=== PATIENT | male | born 1950 | race Caucasian/White ===

== ENCOUNTER 2017-03-25 16:37 | Inpatient (IN) | payer OTHER ==
[2017-03-25 17:03] VITALS: BMI 25.9
[2017-03-25] MEDS ORDERED: SODIUM CHLORIDE 1,000 ML IV STA (17:37)
[2017-03-25 18:08] LABS: BASOPHIL 0.2 % (0-2.0); EOSINOPHIL 0.4 % (0-4.5); MCH 31.8 pg (25.7-33.7); MCHC 33.8 g/dl (32.0-35.9); MEAN PLT VOLUME 9.3 fl (7.5-11.1); NEUTROPHILS 85.3 % (42.8-82.8); PLATELET COUNT 172 K/MM3 (134-434); RDW 15.3 % (11.9-15.9); WHITE BLOOD COUNT 17.9 K/mm3 (4.0-10.0)
[2017-03-25 18:36] LABS: ANION GAP 13 (8-16); CALCIUM 9.1 mg/dL (8.5-10.1); CO2 27 mmol/L (21-32); CREATININE 1.1 mg/dL (0.7-1.3); GLUCOSE,RANDOM 127 mg/dL (74-106); SGOT/AST 14 U/L (15-37); SGPT/ALT 16 U/L (12-78)
[2017-03-25 18:37] LABS: ALK PHOS 54 U/L (45-117); BILIRUBIN,TOTAL 1.7 mg/dL (0.2-1.0)
[2017-03-25 18:46] LABS: URINE APPEARANCE CLEAR; URINE BILIRUBIN NEGATIVE (NEGATIVE); URINE COLOR RED; URINE GLUCOSE (UA) NEGATIVE (NEGATIVE); URINE KETONE NEGATIVE (NEGATIVE); URINE LEUK ESTERASE NEGATIVE (NEGATIVE); URINE NITRITE POSITIVE (NEGATIVE); URINE UROBILINOGEN 4.0 E.U/dl E.U./dl (0.2-1.0)
[2017-03-25 18:50] LABS: URINE BLOOD 3+ (NEGATIVE); URINE PROTEIN 2+ (NEGATIVE)
[2017-03-25 18:56] LABS: URINE MUCUS RARE; URINE RBC 830 /hpf (0-3); URINE WBC 295 /hpf (3-5)
[2017-03-25] MEDS ORDERED: CEFTRIAXONE 1 GM in DEXTROSE 5%-WATER - 50 ML IVPB ONE (19:06)
[2017-03-25] MEDS ORDERED: CEFTRIAXONE 50 ML ONE (19:11)
--- NOTE | 2017-03-25 19:27 | PDOC ---
History of Present Illness <Sharath Deluna - Last Filed: 03/25/17 19:47> - General History Source: Patient, Family () Exam Limitations: No Limitations - History of Present Illness Initial Comments: 03/25/17 19:29 The patient is a 66 year old male, with a significant past medical history of HTN and anxiety, who presents to the emergency department with urinary symptoms. He notes that recently he has been having urgency, with the inability to urinate, as well as dysuria and hematuria. He also notes that at times he has urinary incontinence, where a small amount of urine comes out. Aside from the urinary symptoms, his notes that the patient has had generalized weakness over the past year, with his movements progressively getting slower. They note that they have not mentioned this progression to their PMD. The patient denies chest pain, shortness of breath, headache and dizziness. Denies fever, chills, nausea, vomit, diarrhea and constipation. Allergies: None Past surgical history: None reported Social history: Ocassional alcohol use. No tobacco or drug use reported PMD - Dr. Cherry <Trung Hogan - Last Filed: 03/25/17 19:56> - General Chief Complaint: Urinary Problem Stated Complaint: URINARY PROBLEM Time Seen by Provider: 03/25/17 17:20 Past History - Past Medical History HTN: Yes - Family Disease History Family Disease History: Diabetes: Mother (hypertension), Heart Disease: Mother - Psycho/Social/Smoking Cessation Hx Anxiety: No Suicidal Ideation: No Smoking History: Never smoked Have you smoked in the past 12 months: No Number of Cigarettes Smoked Daily: 0 Information on smoking cessation initiated: No Hx Alcohol Use: No Drug/Substance Use Hx: No Substance Use Type: None Hx Substance Use Treatment: No <Sharath Deluna - Last Filed: 03/25/17 19:47> <Trung Hogan - Last Filed: 03/25/17 19:56> - Past Medical History Allergies/Adverse Reactions: Allergies Allergy/AdvReac Type Severity Reaction Status Date / Time No Known Allergies Allergy Verified 03/25/17 17:03 Home Medications: Ambulatory Orders Aspirin [ASA -] 81 mg PO DAILY 07/09/15 Review of Systems - Review of Systems Able to Perform ROS?: Yes Comments:: 05/19/17 19:29 CONSTITUTIONAL: (+) Generalized weakness. No fever, no chills, no fatigue EYES: No visual changes ENT: No ear pain, no sore throat CARDIOVASCULAR: No chest pain, no palpitations RESPIRATORY: No cough, no SOB GI: No abdominal pain, no nausea, no vomiting, no constipation, no diarrhea GENITOURINARY: (+) Dysuria, frequency, hematuria MUSKULOSKELETAL: No backpain, no joint pain, no myalgias SKIN: No rash NEURO: No headache <Trung Hogan - Last Filed: 03/25/17 19:56> *Physical Exam - Vital Signs Last Vital Signs Temp Pulse Resp BP Pulse Ox 98.5 F 98 H 20 113/73 96 03/25/17 16:59 03/25/17 16:59 03/25/17 16:59 03/25/17 16:59 03/25/17 16:59 - Physical Exam Comments: EXAMINATION CONSTITUTIONAL: Awake and alert, well-nourished; in no apparent distress HEAD: Normocephalic; atraumatic EYES: PERRL; EOM intact ENMT: External appears normal; + flattening of the right nasolabial fold NECK: Supple; non-tender; no cervical lymphadenopathy CARD: Normal S1, S2; no murmurs, rubs, or gallops RESP: Normal chest excursion with respiration; breath sounds clear and equal bilaterally; no wheezes, rhonchi, or rales ABD: Soft, non-distended; + mild suprapubic tender; no palpable organomegaly, no palpable hernias, no CVA tenderness bilaterally KS: No external lesions, good rectal tone is noted. EXT: + cogwheel rigidity in all four extremities; non-tender to palpation; distal pulses intact; + DTRs +2 at the knee joints and ankle joints bilaterally; SKIN: Warm, dry, no rash NEURO: Cranial nerves II through XII are grossly intact; motor: 5 of 54; + right upper extremity pronation drift; gait-festinating; <Sharath Deluna - Last Filed: 03/25/17 19:47> - Vital Signs Last Vital Signs Temp Pulse Resp BP Pulse Ox 98.5 F 98 H 20 113/73 96 03/25/17 16:59 03/25/17 16:59 03/25/17 16:59 03/25/17 16:59 03/25/17 16:59 <Trung Hogan - Last Filed: 03/25/17 19:56> ED Treatment Course - LABORATORY CBC & Chemistry Diagram: 03/25/17 17:52 03/25/17 17:52 - ADDITIONAL ORDERS Additional order review: Laboratory Results 03/25/17 03/25/17 18:31 17:52 Sodium 139 Potassium 3.9 Chloride 99 Carbon Dioxide 27 Anion Gap 13 BUN 17 D Creatinine 1.1 D Creat Clearance w eGFR > 60 Random Glucose 127 H Calcium 9.1 Total Bilirubin 1.7 H D AST 14 L ALT 16 D Alkaline Phosphatase 54 Total Protein 7.0 Albumin 4.0 Urine Color Red Urine Appearance Clear Urine pH 5.0 Urine Protein 2+ H Urine Glucose (UA) Negative Urine Ketones Negative Urine Blood 3+ H Urine Nitrite Positive Urine Bilirubin Negative Urine Urobilinogen 4.0 e.u/dl Ur Leukocyte Esterase Negative Urine RBC 830 Urine WBC 295 Ur Epithelial Cells Rare Urine Mucus Rare 03/25/17 17:52 RBC 4.41 MCV 94.0 MCHC 33.8 RDW 15.3 D MPV 9.3 Neutrophils % 85.3 H D Lymphocytes % 6.7 L D Monocytes % 7.4 Eosinophils % 0.4 D Basophils % 0.2 - RADIOLOGY Radiology Studies Ordered: Category Date Time Status HEAD CT WITHOUT CONTRAST [CT] Stat CT Scan 03/25/17 17:38 Completed - Medications Given in the ED: ED Medications Discontinued Medications Generic Name Dose Route Start Last Admin Trade Name Freq PRN Reason Stop Dose Admin Sodium Chloride 1,000 mls @ 1,000 mls/hr 03/25/17 17:37 03/25/17 17:54 Normal Saline - IV 03/25/17 18:36 1,000 mls/hr ASDIR STA Administration <Sharath Deluna - Last Filed: 03/25/17 19:47> - LABORATORY CBC & Chemistry Diagram: 03/25/17 17:52 03/25/17 17:52 - ADDITIONAL ORDERS Additional order review: Laboratory Results 03/25/17 03/25/17 18:31 17:52 Sodium 139 Potassium 3.9 Chloride 99 Carbon Dioxide 27 Anion Gap 13 BUN 17 D Creatinine 1.1 D Creat Clearance w eGFR > 60 Random Glucose 127 H Calcium 9.1 Total Bilirubin 1.7 H D AST 14 L ALT 16 D Alkaline Phosphatase 54 Total Protein 7.0 Albumin 4.0 Urine Color Red Urine Appearance Clear Urine pH 5.0 Urine Protein 2+ H Urine Glucose (UA) Negative Urine Ketones Negative Urine Blood 3+ H Urine Nitrite Positive Urine Bilirubin Negative Urine Urobilinogen 4.0 e.u/dl Ur Leukocyte Esterase Negative Urine RBC 830 Urine WBC 295 Ur Epithelial Cells Rare Urine Mucus Rare 03/25/17 17:52 RBC 4.41 MCV 94.0 MCHC 33.8 RDW 15.3 D MPV 9.3 Neutrophils % 85.3 H D Lymphocytes % 6.7 L D Monocytes % 7.4 Eosinophils % 0.4 D Basophils % 0.2 - RADIOLOGY Radiograph Interpretation: 03/25/17 19:[address] Reviewed by: Dr. Edmond Melendrez Impression: No evidence of acute intracranial pathology. - Medications Given in the ED: ED Medications Discontinued Medications Generic Name Dose Route Start Last Admin Trade Name Freq PRN Reason Stop Dose Admin Sodium Chloride 1,000 mls @ 1,000 mls/hr 03/25/17 17:37 03/25/17 17:54 Normal Saline - IV 03/25/17 18:36 1,000 mls/hr ASDIR STA Administration <Trung Hogan - Last Filed: 03/25/17 19:56> Medical Decision Making - Medical Decision Making 03/25/17 19:50 Patient is 66-year-old male with history of hypertension and anxiety who presents with signs and symptoms of acute prostatitis as well as bradykinesia that has worsened over the past year, with right-sided pronation drift and mild flattening of the right nasolabial fold. Patient also has cogwheel rigidity in all 4 extremities. Will obtain CBC/CMP/blood culture/UA/urine culture and will treat with IV ceftriaxone for suspected prostatitis. Patient's CBC indicates significant leukocytosis with predominance of neutrophils and patient will require inpatient treatment with IV antibiotics in the interim before conversion to oral antibiotic therapy. Patient's neurological symptoms are chronic and in situ us. I suspect parkinsonism. CT of head shows no evidence of acute intracranial pathology that patient may require additional testing with MRI. I do not suspect cord compression at this time (sees patient has no back pain, good rectal tone, and was able to control voiding in the ER). We'll consult neurology and urology. Will admit. Case discussed with Dr. Bernard. He agrees with plan of care. <Sharath Deluna - Last Filed: 03/25/17 19:47> - Medical Decision Making 03/25/17 19:54 Dr. Cherry was called regarding the patient at 7:03pm Dr. Cherry was consulted regarding the patient at 7:18pm [phone] Dr. Mario was called regarding the patient at 7:27pm Dr. Mario was consulted regarding the patient at 7:40pm [phone] <Trung Hogan - Last Filed: 03/25/17 19:56> *DC/Admit/Observation/Transfer - Discharge Dispostion Admit: Yes - Attestations Physician Attestion: 03/25/17 19:27 The documentation was prepared by the scribe under my direct supervision. I have reviewed the documentation which correctly represents the findings, medical decision-making and critical action taken by me. <Sharath Deluna - Last Filed: 03/25/17 19:47> - Attestations Scribe Attestion: 03/25/17 19:29 Documentation prepared by Trung Hogan, acting as medical surgical tech for Sharath Deluna MD <Trung Hogan - Last Filed: 03/25/17 19:56> Diagnosis at time of Disposition: Acute prostatitis with hematuria, Weakness - Referrals Referrals: Sanjay Cherry MD [Primary Care Provider] -
[2017-03-25] MEDS ORDERED: ACETAMINOPHEN 325 MG TABLET (FP) ONE (21:33)
[2017-03-25] MEDS: ACETAMINOPHEN 325 MG TABLET (FP) PO PRN (21:37)
[2017-03-26] MEDS: SODIUM CHLORIDE 1,000 ML IV SCH ×2 (01:18→23:22)
[2017-03-26 07:55] LABS: MCH 32.6 pg (25.7-33.7); MCHC 34.5 g/dl (32.0-35.9); MEAN CELL VOLUME 94.6 fl (80-96); MEAN PLT VOLUME 9.2 fl (7.5-11.1); PLATELET COUNT 140 K/MM3 (134-434); RDW 15.5 % (11.9-15.9)
[2017-03-26 08:07] LABS: ALBUMIN 3.4 g/dl (3.4-5.0); ANION GAP 12 (8-16); CALCIUM 8.4 mg/dL (8.5-10.1); CO2 27 mmol/L (21-32); GLUCOSE,RANDOM 99 mg/dL (74-106); SGOT/AST 12 U/L (15-37); SGPT/ALT 15 U/L (12-78)
[2017-03-26 08:21] LABS: ALK PHOS 53 U/L (45-117); BILIRUBIN,TOTAL 1.2 mg/dL (0.2-1.0); CREATININE 1.1 mg/dL (0.7-1.3); TOT PROT 6.1 g/dl (6.4-8.2)
[2017-03-26] MEDS: TAMSULOSIN HCL 0.4 MG CAP.ER.24H (FP) PO SCH (08:42)
[2017-03-26] MEDS ORDERED: CEFTRIAXONE 2 GM in DEXTROSE 5%-WATER - 100 ML IVPB SCH (10:00)
[2017-03-26] MEDS ORDERED: CEFTRIAXONE 100 ML IVPB SCH (10:06)
[2017-03-26] MEDS: CEFTRIAXONE 100 ML IVPB SCH (10:29)
--- NOTE | 2017-03-26 10:38 | HP ---
Admitting History and Physical - Primary Care Physician PCP: Sanjay Cherry - Admission Chief Complaint: ACUTE PROSTATITIS/WITH ACUTE BRADYKINESIA History of Present Illness: PATIENT IS A 66 Y/O MALE WITH HYPOTENSION/FEVER AT HOME, DYSUREA AND ABD PAIN. PATIENT'S ALSO MENTIONS HER HAS BEEN MOVING SLOWLY PAST SEVERAL MONTHS AND NOW WORSENED. RIGID AND SLOW MOVEMENTS. PATIENT ALSO SUFFERS FROM HYPOGONADISM LOW TESTOSTERONE WITH ERECTILE DYSFUNCTION AND HE IS ON TETOSTERONE THERAPY MONTHLY. History Source: Patient - Past Medical History Cardiovascular: Yes: HTN Psych: Yes: Anxiety Endocrine: Yes: Other (HYPOGONADISM) - Smoking History Smoking history: Never smoked Have you smoked in the past 12 months: No Aproximately how many cigarettes per day: 0 - Alcohol/Substance Use Hx Alcohol Use: No Home Medications - Allergies Allergies/Adverse Reactions: Allergies Allergy/AdvReac Type Severity Reaction Status Date / Time No Known Allergies Allergy Verified 03/25/17 17:03 - Home Medications Home Medications: Ambulatory Orders Aspirin [ASA -] 81 mg PO DAILY 07/09/15 Clonazepam [Klonopin] 1 mg PO BID PRN 03/25/17 Losartan Potassium 50 mg PO DAILY 03/25/17 Zolpidem Tartrate [Ambien] 10 mg PO HS 03/25/17 Review of Systems - Review of Systems Constitutional: reports: Lethargy, Loss of Appetite, Weakness Eyes: reports: No Symptoms HENT: reports: No Symptoms Neck: reports: No Symptoms Cardiovascular: reports: No Symptoms Respiratory: reports: No Symptoms Gastrointestinal: reports: No Symptoms Genitourinary: reports: Dysuria, Other Musculoskeletal: reports: Muscle Weakness Integumentary: reports: No Symptoms Neurological: reports: Unsteady Gait, Weakness Endocrine: reports: No Symptoms Hematology/Lymphatic: reports: No Symptoms Physical Examination Vital Signs: Vital Signs Temperature 98.4 F 03/26/17 09:01 Pulse Rate 74 03/26/17 09:01 Respiratory Rate 20 03/26/17 09:01 Blood Pressure 93/55 03/26/17 09:01 O2 Sat by Pulse Oximetry (%) 96 03/25/17 21:37 Constitutional: Yes: Mild Distress Eyes: Yes: WNL HENT: Yes: WNL Neck: Yes: WNL Cardiovascular: Yes: WNL Respiratory: Yes: WNL Gastrointestinal: Yes: WNL Renal/: Yes: WNL Musculoskeletal: Yes: Muscle Weakness Extremities: Yes: Other Edema: No Peripheral Pulses WNL: Yes Integumentary: Yes: WNL Wound/Incision: Yes: Clean/Dry Neurological: Yes: Ataxia, Unsteady Gait ...Motor Strength: LLE, RLE Psychiatric: Yes: Other Labs: CBC, BMP 03/26/17 07:25 03/26/17 07:25 Imaging - Results Cat Scan: Report Reviewed Problem List - Problems (1) Acute prostatitis with hematuria Code(s): N41.0 - ACUTE PROSTATITIS (2) Weakness Code(s): R53.1 - WEAKNESS (3) Anxious appearance Code(s): R45.89 - OTHER SYMPTOMS AND SIGNS INVOLVING EMOTIONAL STATE (4) Bradykinesia Code(s): R25.8 - OTHER ABNORMAL INVOLUNTARY MOVEMENTS Assessment/Plan IV ABX EVAL ORDERED LABS PENDING ESR/CRP/LYME/RPR/TESTOSTERONE/PSA LEVELS F/U CULTURES NEURO WORKUP MRI BRAIN PITIUTARY VIEW FOR LOW TESTOSTERONE/BRADYKINESIA
[2017-03-26] MEDS ORDERED: clonazePAM 0.5 MG TABLET PO PRN (10:51)
--- NOTE | 2017-03-26 11:28 | PN ---
Progress Note (short form) - Note Progress Note: ID consult dictated imp/reccd fever/UTI no history of antibiotics no prior UTI agree with eval feels better on ceftriaxone would continue f/u cultures Problem List - Problems (1) UTI (urinary tract infection) Code(s): N39.0 - URINARY TRACT INFECTION, SITE NOT SPECIFIED (2) Acute prostatitis with hematuria Code(s): N41.0 - ACUTE PROSTATITIS
[2017-03-26] MEDS ORDERED: MAGNESIUM HYDROX 2400MG/30ML ORAL SUSPENSION 30 ML CUP PO ONE (11:30)
--- NOTE | 2017-03-26 12:03 | EKG ---
Test Reason : Blood Pressure : / mmHG Vent. Rate : 077 BPM Atrial Rate : 077 BPM P-R Int : 162 ms QRS Dur : 104 ms QT Int : 364 ms P-R-T Axes : 038 014 014 degrees QTc Int : 411 ms NORMAL SINUS RHYTHM NORMAL ECG WHEN COMPARED WITH ECG OF 16-JUL-2015 07:33, NO SIGNIFICANT CHANGE WAS FOUND Confirmed by MD ZBIGNIEW, SUMMER ([id number]) on 03/26/2017 12:03:17 PM Referred By: Francoise CORTES Confirmed By:SUMMER COY MD
[2017-03-26] MEDS: POLYETHYLENE GLYCOL 3350 119 GM BTL PO SCH (12:04)
--- NOTE | 2017-03-26 12:58 | CON.GU ---
Consult Consult Specialty:: urology Referred by:: Dilip Reason for Consultation:: uti/acute prostatitis - History of Present Illness Chief Complaint: dysuria with gross hematuria History of Present Illness: Patient is a 66 year old male with history of mild obstructive symptoms. He developed dysruria, gross hematuria, frequency, and significantly increased nocturia. He denies fever, chills, nausea, vomiting, or flank pain. - History Source History Provided By: Patient Limitations to Obtaining History: No Limitations - Past Medical History Cardio/Vascular: Yes: HTN Psych: Yes: Anxiety Endocrine: Yes: Other (HYPOGONADISM) - Alcohol/Substance Use Hx Alcohol Use: No - Smoking History Smoking history: Never smoked Have you smoked in the past 12 months: No Aproximately how many cigarettes per day: 0 Home Medications - Allergies Allergies/Adverse Reactions: Allergies Allergy/AdvReac Type Severity Reaction Status Date / Time No Known Allergies Allergy Verified 03/25/17 17:03 - Home Medications Home Medications: Ambulatory Orders Aspirin [ASA -] 81 mg PO DAILY 07/09/15 Clonazepam [Klonopin] 1 mg PO BID PRN 03/25/17 Losartan Potassium 50 mg PO DAILY 03/25/17 Zolpidem Tartrate [Ambien] 10 mg PO HS 03/25/17 Physical Exam- Vital Signs: Vital Signs Temperature 98.4 F 03/26/17 09:01 Pulse Rate 82 03/26/17 10:38 Respiratory Rate 20 03/26/17 10:38 Blood Pressure 107/64 03/26/17 10:38 O2 Sat by Pulse Oximetry (%) 94 L 03/26/17 09:00 Constitutional: Yes: Well Nourished, No Distress, Anxious Eyes: Yes: WNL, Conjunctiva Clear, EOM Intact HENT: Yes: WNL, Atraumatic, Normocephalic Neck: Yes: WNL, Supple, Trachea Midline Cardiovascular: Yes: WNL, Regular Rate and Rhythm Respiratory: Yes: WNL, Regular Gastrointestinal: Yes: WNL, Normal Bowel Sounds, Soft Renal/: Yes: WNL Kidneys: Yes: WNL Pelvis: Yes: WNL, Bladder Non Palpable Testicles: Yes: Descended Scrotum: Yes: WNL Penis: Yes: WNL Prostate Exam: Yes: Swollen, Tenderness Labs: CBC, BMP 03/26/17 07:25 03/26/17 07:25 Assessment/Plan imp uti/acute prostatitis bph plan continue flomax and Rocephin will follow-up as outpatient Antibiotics as per urine culture
--- NOTE | 2017-03-26 14:28 | CONSULT ---
Consult - text type - Consultation Consultation Note: Neurology History of Present Illness The patient is a 66 year old male, with a significant past medical history of HTN and anxiety, who presents to the emergency department with urinary symptoms. He notes that recently he has been having urgency, with the inability to urinate, as well as dysuria and hematuria. He also notes that at times he has urinary incontinence, where a small amount of urine comes out. Aside from the urinary symptoms, his notes that the patient has had generalized weakness over the past year, with his movements progressively getting slower. In speaking with patient he believes his motions are intact. He did complete CT of head shows no evidence of acute intracranial pathology. Past History - Past Medical History HTN: Yes - Family Disease History Family Disease History: Diabetes: Mother (hypertension), Heart Disease: Mother - Psycho/Social/Smoking Cessation Hx Anxiety: No Suicidal Ideation: No Smoking History: Never smoked Have you smoked in the past 12 months: No Number of Cigarettes Smoked Daily: 0 Information on smoking cessation initiated: No Hx Alcohol Use: No Drug/Substance Use Hx: No Substance Use Type: None Hx Substance Use Treatment: No - Past Medical History Allergies/Adverse Reactions: Allergies Allergy/AdvReac Type Severity Reaction Status Date / Time No Known Allergies Allergy Verified 03/25/17 17:03 Home Medications: Ambulatory Orders Aspirin [ASA -] 81 mg PO DAILY 07/09/15 Review of Systems CONSTITUTIONAL: (+) Generalized weakness. No fever, no chills, no fatigue EYES: No visual changes ENT: No ear pain, no sore throat CARDIOVASCULAR: No chest pain, no palpitations RESPIRATORY: No cough, no SOB GI: No abdominal pain, no nausea, no vomiting, no constipation, no diarrhea GENITOURINARY: (+) Dysuria, frequency, hematuria MUSKULOSKELETAL: No backpain, no joint pain, no myalgias SKIN: No rash NEURO: No headache *Physical Exam Last Vital Signs Temp Pulse Resp BP Pulse Ox 98.4 F 82 20 107/64 94 L 03/26/17 09:01 03/26/17 10:38 03/26/17 10:38 03/26/17 10:38 03/26/17 09:00 CONSTITUTIONAL: Awake and alert, well-nourished; in no apparent distress HEAD: Normocephalic; atraumatic EYES: PERRL; EOM intact ENMT: External appears normal; + flattening of the right nasolabial fold NECK: Supple; non-tender; no cervical lymphadenopathy CARD: Normal S1, S2; no murmurs, rubs, or gallops RESP: Normal chest excursion with respiration; breath sounds clear and equal bilaterally; no wheezes, rhonchi, or rales ABD: Soft, non-distended; + mild suprapubic tender; no palpable organomegaly, no palpable hernias, no CVA tenderness bilaterally CO: No external lesions, good rectal tone is noted. EXT: + cogwheel rigidity in all four extremities; non-tender to palpation; distal pulses intact; + DTRs +2 at the knee joints and ankle joints bilaterally; SKIN: Warm, dry, no rash NEURO: Cranial nerves II through XII are grossly intact; motor: 5 of 54; + right upper extremity pronation drift; gait-festinating; Laboratory Results 03/25/17 03/25/17 18:31 17:52 Sodium 139 Potassium 3.9 Chloride 99 Carbon Dioxide 27 Anion Gap 13 BUN 17 D Creatinine 1.1 D Creat Clearance w eGFR > 60 Random Glucose 127 H Calcium 9.1 Total Bilirubin 1.7 H D AST 14 L ALT 16 D Alkaline Phosphatase 54 Total Protein 7.0 Albumin 4.0 Urine Color Red Urine Appearance Clear Urine pH 5.0 Urine Protein 2+ H Urine Glucose (UA) Negative Urine Ketones Negative Urine Blood 3+ H Urine Nitrite Positive Urine Bilirubin Negative Urine Urobilinogen 4.0 e.u/dl Ur Leukocyte Esterase Negative Urine RBC 830 Urine WBC 295 Ur Epithelial Cells Rare Urine Mucus Rare 03/25/17 17:52 RBC 4.41 MCV 94.0 MCHC 33.8 RDW 15.3 D MPV 9.3 Neutrophils % 85.3 H D Lymphocytes % 6.7 L D Monocytes % 7.4 Eosinophils % 0.4 D Basophils % 0.2 Medical Decision Making 66 year old male, with a significant past medical history of HTN and anxiety, who presents to the emergency department with urinary symptoms. He notes that recently he has been having urgency, with the inability to urinate, as well as dysuria and hematuria. He also notes that at times he has urinary incontinence, where a small amount of urine comes out. Aside from the urinary symptoms, his notes that the patient has had generalized weakness over the past year, with his movements progressively getting slower. In speaking with patient he believes his motions are intact. He did complete CT of head shows no evidence of acute intracranial pathology. There possible parkinsonism occuring but at this point I would not initiate medication. I would recommend monitoring clinically. If symptoms progess, consider Sinemet but currently would recommend treating current conditions and re-evaluating.
--- NOTE | 2017-03-26 14:31 | CONS ---
INFECTIOUS DISEASE CONSULTATION DATE OF CONSULTATION: DATE OF DICTATION: 03/26/2017 REQUESTING PHYSICIAN: Sanjay Cherry MD HISTORY OF PRESENT ILLNESS: This is a 66-year-old man who presents to the emergency room with acute onset of urinary urgency, difficulty urinating, dysuria, and hematuria. This has been present for about a day. He has never had this happen before. He denies any recent antibiotic use. He has never had a prior urinary tract infection. He denies fevers or chills though after admission he had a fever of 103. He has no nausea or vomiting. He has no diarrhea or dysuria. ALLERGIES: He has no known drug allergies. PAST MEDICAL HISTORY: Notable for hypertension and anxiety. He apparently has a low testosterone as well and is on testosterone supplements and he is followed by Dr. Cherry. PAST SURGICAL HISTORY: Notable for a left wrist fracture secondary to a fall many years ago. MEDICATIONS: At home include aspirin, Klonopin, losartan, and Ambien. He also takes testosterone. FAMILY HISTORY: Noncontributory. SOCIAL HISTORY: He lives with his . There is no history of any cigarette or substance use. 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 There is no history of any recent travel. REVIEW OF SYSTEMS: As per the history of present illness. PHYSICAL EXAMINATION: Vital Signs: He had a T-max of 103 in the emergency room and current temperature of 98.4. Pulse of 74, blood pressure of 93/55, and respiratory rate of 20. HEENT: Normocephalic. Eyes are anicteric. Neck: Supple. Lungs: Clear to auscultation. Heart: Regular rate and rhythm. Abdomen: He has no CVA tenderness. He has mild suprapubic discomfort. Genitourinary: He has no scrotal swelling. Extremities: Without edema. Rectal: Examination was done in the emergency room which the patient reports is minimally uncomfortable. LABORATORY DATA: White count on admission was 17.9 and this morning is 14, and hemoglobin of 13.7. BUN of 16 and creatinine of 1.1. Liver function tests are normal. Urinalysis had 830 red cells with 295 white cells and cultures are pending. Chest x-ray was done in the emergency room, which is unremarkable and head CT as well is unremarkable. IMPRESSION: In summary, this is a 66-year-old man admitted with acute onset of urinary symptoms consistent with urinary tract infection and possible acute prostatitis with hematuria. I would agree with urology evaluation. He is feeling better on ceftriaxone, which I would continue at this time and follow up his cultures. There is no history of prior antibiotic use or urinary tract infection to suggest drug-resistant organisms. Further recommendations to follow based on clinical course. NEWTON LE M.D. [id number]
[2017-03-26] MEDS: ACETAMINOPHEN 325 MG TABLET (FP) PO PRN (21:16)
[2017-03-26] MEDS: ZOLPIDEM TARTRATE 5 MG TABLET PO PRN (23:22)
[2017-03-27] MEDS: TAMSULOSIN HCL 0.4 MG CAP.ER.24H (FP) PO SCH (08:18)
[2017-03-27] MEDS: POLYETHYLENE GLYCOL 3350 119 GM BTL PO SCH (09:22)
[2017-03-27] MEDS: CEFTRIAXONE 100 ML IVPB SCH (09:22)
--- NOTE | 2017-03-27 13:54 | PN ---
Progress Note (short form) - Note Progress Note: feels better no hematuria no dysuria Vital Signs Period Temp Pulse Resp BP Sys/Esc[place]illa Pulse Ox Last 24 Hr 98.2 F-100.6 F 64-81 18-20 99-113/54-66 95-98 cor-rrr lungs clear abd soft,nt ext no edema no cvat CBC, BMP 03/26/17 07:25 03/26/17 07:25 Microbiology 03/25/17 18:31 Urine - Urine Clean Catch Urine Culture - Preliminary Non Lactose Fermenting Gnb 03/25/17 19:35 Blood - Peripheral Venous Blood Culture - Preliminary NO GROWTH OBTAINED AFTER 24 HOURS, INCUBATION TO CONTINUE FOR 4 DAYS. 03/25/17 19:00 Blood - Peripheral Venous Blood Culture - Preliminary NO GROWTH OBTAINED AFTER 24 HOURS, INCUBATION TO CONTINUE FOR 4 DAYS. a/p uti/prostatitis continue ceftriaxone, f/u culture in am, hopefully switch to po antibiotics Problem List - Problems (1) UTI (urinary tract infection) Code(s): N39.0 - URINARY TRACT INFECTION, SITE NOT SPECIFIED (2) Acute prostatitis with hematuria Code(s): N41.0 - ACUTE PROSTATITIS
--- NOTE | 2017-03-27 18:28 | PN ---
Progress Note, Physician Chief Complaint: AWAKE ALERT FAMILY BEDSIDE NAD - Current Medication List Current Medications: Active Medications Acetaminophen (Tylenol -) 650 mg PO Q6H PRN PRN Reason: FEVER OR PAIN Last Admin: 03/26/17 21:16 Dose: 650 mg Clonazepam (Klonopin -) 0.5 mg PO BID PRN PRN Reason: ANXIETY Ceftriaxone Sodium (Rocephin 2gm Ivpb (Pre-Docked)) 100 mls @ 200 mls/hr IVPB DAILY [facility] Last Admin: 03/27/17 09:22 Dose: 200 mls/hr Polyethylene Glycol (Miralax (For Daily Use) -) 17 gm PO DAILY [facility] Last Admin: 03/27/17 09:22 Dose: 17 gm Tamsulosin HCl (Flomax -) 0.4 mg PO DAILY@0830 [facility] Last Admin: 03/27/17 08:18 Dose: 0.4 mg Zolpidem Tartrate (Ambien -) 10 mg PO HS PRN Last Admin: 03/26/17 23:22 Dose: 10 mg - Objective Vital Signs: Vital Signs Temperature 98.7 F 03/27/17 14:28 Pulse Rate 79 03/27/17 14:28 Respiratory Rate 18 03/27/17 14:28 Blood Pressure 107/70 03/27/17 14:28 O2 Sat by Pulse Oximetry (%) 98 03/27/17 09:00 Constitutional: Yes: Mild Distress Eyes: Yes: WNL HENT: Yes: WNL Neck: Yes: WNL Cardiovascular: Yes: WNL Respiratory: Yes: WNL Gastrointestinal: Yes: WNL Genitourinary: Yes: WNL Musculoskeletal: Yes: Joint Stiffness, Muscle Weakness Extremities: Yes: WNL Edema: No Integumentary: Yes: WNL Wound/Incision: Yes: Clean/Dry Neurological: Yes: Pre-Existing Deficit, Unsteady Gait ...Motor Strength: WNL Psychiatric: Yes: WNL Labs: CBC, BMP 03/26/17 07:25 03/26/17 07:25 Problem List - Problems (1) Acute prostatitis with hematuria Code(s): N41.0 - ACUTE PROSTATITIS (2) Weakness Code(s): R53.1 - WEAKNESS (3) Anxious appearance Code(s): R45.89 - OTHER SYMPTOMS AND SIGNS INVOLVING EMOTIONAL STATE (4) Bradykinesia Code(s): R25.8 - OTHER ABNORMAL INVOLUNTARY MOVEMENTS Assessment/Plan IV ABX EVAL ORDERED LABS PENDING ESR/CRP/LYME/RPR/TESTOSTERONE/PSA LEVELS F/U CULTURES NEURO WORKUP MRI BRAIN PITIUTARY VIEW FOR LOW TESTOSTERONE/BRADYKINESIA
[2017-03-27] MEDS: ZOLPIDEM TARTRATE 5 MG TABLET PO PRN (23:22)
[2017-03-28 00:06] LABS: PROSTATE SPECIFIC ANTIGEN 8.4 ng/mL (0.0-4.0)
[2017-03-28 07:57] LABS: MEAN CELL VOLUME 93.9 fl (80-96); MEAN PLT VOLUME 9.6 fl (7.5-11.1); PLATELET COUNT 152 K/MM3 (134-434); RDW 14.5 % (11.9-15.9); WHITE BLOOD COUNT 6.3 K/mm3 (4.0-10.0)
[2017-03-28 08:20] LABS: ALBUMIN 2.9 g/dl (3.4-5.0); ANION GAP 8 (8-16); CALCIUM 7.8 mg/dL (8.5-10.1); CO2 28 mmol/L (21-32); GLUCOSE,RANDOM 89 mg/dL (74-106)
[2017-03-28 08:23] LABS: ALK PHOS 49 U/L (45-117); BILIRUBIN,TOTAL 0.8 mg/dL (0.2-1.0); COCKROFT - GAULT 105.33; CREATININE 0.8 mg/dL (0.7-1.3); SGOT/AST 14 U/L (15-37); SGPT/ALT 18 U/L (12-78); TOT PROT 5.8 g/dl (6.4-8.2)
[2017-03-28] MEDS: POLYETHYLENE GLYCOL 3350 119 GM BTL PO SCH (10:03)
[2017-03-28] MEDS: TAMSULOSIN HCL 0.4 MG CAP.ER.24H (FP) PO SCH (10:03)
[2017-03-28] MEDS: CEFTRIAXONE 100 ML IVPB SCH (10:03)
--- NOTE | 2017-03-28 10:47 | PN ---
Progress Note (short form) - Note Progress Note: Neurology History of Present Illness The patient is a 66 year old male, with a significant past medical history of HTN and anxiety, who presents to the emergency department with urinary symptoms. He notes that recently he has been having urgency, with the inability to urinate, as well as dysuria and hematuria. He also notes that at times he has urinary incontinence, where a small amount of urine comes out. Aside from the urinary symptoms, his notes that the patient has had generalized weakness over the past year, with his movements progressively getting slower. In speaking with patient he believes his motions are intact. He did complete CT of head shows no evidence of acute intracranial pathology. MRI brain completed and no significant abnormality. Active Medications Acetaminophen (Tylenol -) 650 mg PO Q6H PRN PRN Reason: FEVER OR PAIN Last Admin: 03/26/17 21:16 Dose: 650 mg Clonazepam (Klonopin -) 0.5 mg PO BID PRN PRN Reason: ANXIETY Ceftriaxone Sodium (Rocephin 2gm Ivpb (Pre-Docked)) 100 mls @ 200 mls/hr IVPB DAILY [facility] Last Admin: 03/28/17 10:03 Dose: 200 mls/hr Polyethylene Glycol (Miralax (For Daily Use) -) 17 gm PO DAILY [facility] Last Admin: 03/28/17 10:03 Dose: 17 gm Tamsulosin HCl (Flomax -) 0.4 mg PO DAILY@0830 [facility] Last Admin: 03/28/17 10:03 Dose: 0.4 mg Zolpidem Tartrate (Ambien -) 10 mg PO HS PRN Last Admin: 03/27/17 23:22 Dose: 10 mg Review of Systems CONSTITUTIONAL: (+) Generalized weakness. No fever, no chills, no fatigue EYES: No visual changes ENT: No ear pain, no sore throat CARDIOVASCULAR: No chest pain, no palpitations RESPIRATORY: No cough, no SOB GI: No abdominal pain, no nausea, no vomiting, no constipation, no diarrhea GENITOURINARY: (+) Dysuria, frequency, hematuria MUSKULOSKELETAL: No backpain, no joint pain, no myalgias SKIN: No rash NEURO: No headache *Physical Exam Vital Signs Temperature 99.5 F 03/28/17 06:00 Pulse Rate 73 03/28/17 06:00 Respiratory Rate 18 03/28/17 06:00 Blood Pressure 133/83 03/28/17 06:00 O2 Sat by Pulse Oximetry (%) 98 03/27/17 21:00 CONSTITUTIONAL: Awake and alert, well-nourished; in no apparent distress HEAD: Normocephalic; atraumatic EYES: PERRL; EOM intact ENMT: External appears normal; + flattening of the right nasolabial fold NECK: Supple; non-tender; no cervical lymphadenopathy CARD: Normal S1, S2; no murmurs, rubs, or gallops RESP: Normal chest excursion with respiration; breath sounds clear and equal bilaterally; no wheezes, rhonchi, or rales ABD: Soft, non-distended; + mild suprapubic tender; no palpable organomegaly, no palpable hernias, no CVA tenderness bilaterally ME: No external lesions, good rectal tone is noted. EXT: + cogwheel rigidity in all four extremities; non-tender to palpation; distal pulses intact; + DTRs +2 at the knee joints and ankle joints bilaterally; SKIN: Warm, dry, no rash NEURO: Cranial nerves II through XII are grossly intact; motor: 5 of 54; + right upper extremity pronation drift; gait-festinating; CBCD WBC 6.3 K/mm3 (4.0-10.0) D 03/28/17 06:47 RBC 3.97 M/mm3 (4.00-5.60) L 03/28/17 06:47 Hgb 12.7 GM/dL (11.7-16.9) 03/28/17 06:47 Hct 37.3 % (35.4-49) 03/28/17 06:47 MCV 93.9 fl (80-96) 03/28/17 06:47 MCHC 34.0 g/dl (32.0-35.9) 03/28/17 06:47 RDW 14.5 % (11.9-15.9) 03/28/17 06:47 Plt Count 152 K/MM3 (134-434) 03/28/17 06:47 MPV 9.6 fl (7.5-11.1) 03/28/17 06:47 CMP Sodium 139 mmol/L (136-145) 03/28/17 06:47 Potassium 3.9 mmol/L (3.5-5.1) 03/28/17 06:47 Chloride 103 mmol/L (98-107) 03/28/17 06:47 Carbon Dioxide 28 mmol/L (21-32) 03/28/17 06:47 Anion Gap 8 (8-16) 03/28/17 06:47 BUN 11 mg/dL (7-18) D 03/28/17 06:47 Creatinine 0.8 mg/dL (0.7-1.3) D 03/28/17 06:47 Creat Clearance w eGFR > 60 (>60) 03/28/17 06:47 Calcium 7.8 mg/dL (8.5-10.1) L 03/28/17 06:47 Total Bilirubin 0.8 mg/dL (0.2-1.0) D 03/28/17 06:47 AST 14 U/L (15-37) L 03/28/17 06:47 ALT 18 U/L (12-78) 03/28/17 06:47 Alkaline Phosphatase 49 U/L (45-117) 03/28/17 06:47 Total Protein 5.8 g/dl (6.4-8.2) L 03/28/17 06:47 Albumin 2.9 g/dl (3.4-5.0) L 03/28/17 06:47 Medical Decision Making 66 year old male, with a significant past medical history of HTN and anxiety, who presents to the emergency department with urinary symptoms. He notes that recently he has been having urgency, with the inability to urinate, as well as dysuria and hematuria. He also notes that at times he has urinary incontinence, where a small amount of urine comes out. Aside from the urinary symptoms, his notes that the patient has had generalized weakness over the past year, with his movements progressively getting slower. In speaking with patient he believes his motions are intact. He did complete CT of head shows no evidence of acute intracranial pathology. There possible parkinsonism occuring but at this point I would not initiate medication. I would recommend monitoring clinically. If symptoms progess, consider Sinemet but currently would recommend treating current conditions and re-evaluating as outpatient. MRI brain unremarkable.
--- NOTE | 2017-03-28 14:39 | PN ---
Progress Note (short form) - Note Progress Note: doing well no dysuria no difficulty voiding Vital Signs Period Temp Pulse Resp BP Sys/Esc[place]illa Pulse Ox Last 24 Hr 98.3 F-99.5 F 68-73 18-18 125-133/66-83 98-98 cor-rrr lungs clear abd soft,nt ext no edema CBC, BMP 03/28/17 06:47 03/28/17 06:47 Microbiology 03/25/17 18:31 Urine - Urine Clean Catch Urine Culture - Preliminary Escherichia Coli 03/25/17 19:35 Blood - Peripheral Venous Blood Culture - Preliminary NO GROWTH OBTAINED AFTER 48 HOURS, INCUBATION TO CONTINUE FOR 3 DAYS. 03/25/17 19:00 Blood - Peripheral Venous Blood Culture - Preliminary NO GROWTH OBTAINED AFTER 48 HOURS, INCUBATION TO CONTINUE FOR 3 DAYS. a/p ecoli UTI, possible prostatitis-bactrim resistant day #3 ceftriaxone, can switch to po levaquin 500 mg daily- has good prostate penetration- treat minimum 3 to 4 weeks add probiotic while on antibiotics should f/u with urology Problem List - Problems (1) UTI (urinary tract infection) Code(s): N39.0 - URINARY TRACT INFECTION, SITE NOT SPECIFIED (2) Acute prostatitis with hematuria Code(s): N41.0 - ACUTE PROSTATITIS
[2017-03-28] MEDS ORDERED: LACTOBACILLUS ACIDOPHILUS 1 EACH TAB (FP) PO SCH (15:15)
[2017-03-28 15:37] VITALS: BP 132/83; PULSE 67; TEMP 98.6
[2017-03-28] MEDS ORDERED: PT OWN MED DRAWER 7, Y5N ONE (15:44)
--- NOTE | 2017-03-28 15:54 | DS ---
Physical Examination Vital Signs: Vital Signs Temperature 98.6 F 03/28/17 15:34 Pulse Rate 67 03/28/17 15:34 Respiratory Rate 20 03/28/17 15:34 Blood Pressure 132/83 03/28/17 15:34 O2 Sat by Pulse Oximetry (%) 98 03/28/17 09:00 Constitutional: Yes: No Distress Eyes: Yes: WNL HENT: Yes: WNL Neck: Yes: WNL Cardiovascular: Yes: WNL Respiratory: Yes: WNL Gastrointestinal: Yes: WNL Renal/: Yes: WNL Musculoskeletal: Yes: Joint Stiffness Extremities: Yes: WNL Edema: No Peripheral Pulses WNL: Yes Integumentary: Yes: WNL Wound/Incision: Yes: Clean/Dry Neurological: Yes: WNL ...Motor Strength: WNL Psychiatric: Yes: WNL Labs: CBC, BMP 03/28/17 06:47 03/28/17 06:47 Discharge Summary Reason For Visit: ACUTE PROSTATITS HEMATURIA Current Active Problems Acute prostatitis with hematuria (Acute) Bradykinesia (Acute) UTI (urinary tract infection) (Acute) Weakness (Acute) Procedures: Principal: MRI BRAIN Other Procedures: LABS CX Hospital Course: ADMITTED ACUTE PROSTATITIS, ACUTE BRADYKINESIA, IMPROVED ON IV ABX, NEURO F/U OUTPATIENT WILL NEED F/U OUTPATIENT Condition: Improved - Instructions Diet, Activity, Other Instructions: REPEAT PS IN 1 MONTH AFTER 3 WEEKS OF MACROBID, STOP ALL TESTOSTERONE REPLACEMENT LOW SODIUM Referrals: Sanjay Cherry MD [Primary Care Provider] - Disposition: HOME - Home Medications Comprehensive Discharge Medication List: Ambulatory Orders Aspirin [ASA -] 81 mg PO DAILY 07/09/15 Clonazepam [Klonopin] 1 mg PO BID PRN 03/25/17 Losartan Potassium 50 mg PO DAILY 03/25/17 Zolpidem Tartrate [Ambien] 10 mg PO HS 03/25/17
[2017-03-28] MEDS ORDERED: NITROFURANTOIN MACROCRYSTAL 50 MG CAPSULE (FP) PO SCH (22:00)
== END 2017-03-28 17:29 | disposition home or self-care (01) | DRG 501 ==
LOC: JER 16:37 → J5S 19:53
PROVIDERS: ADMIT Family Medicine; ATTEND Family Medicine
DX: N41.0 Acute prostatitis (principal); R25.8 Other abnormal involuntary movements; I10 Essential (primary) hypertension; F41.9 Anxiety disorder, unspecified; E29.1 Testicular hypofunction; N39.0 Urinary tract infection, site not specified; N40.0 Benign prostatic hyperplasia without lower urinary tract symptoms; G20 Parkinson's disease
CPT/HCPCS: 36415; 70450-TC; 70551-TC; 71010-TC; 80053; 81003; 81015; 82607; 82746; 84153; 84402; 84403; 85025; 85027; 85651; 86140; 86593; 86618; 87040; 87086; 87186; 93005; 93010; 99284-25

== ENCOUNTER 2017-07-03 17:40 | Emergency (ER) | payer MEDICARE, OTHER ==
[2017-07-03 17:45] VITALS: BMI 24.2
--- NOTE | 2017-07-03 18:49 | PDOC ---
History of Present Illness - General History Source: Patient Exam Limitations: No Limitations - History of Present Illness Initial Comments: 07/03/17 18:55 The patient is a 67 year old male with a significant past medical history of HTN who presents to the ED with complaints of anxiety for several days. Patient reports progressively worsening anxiety. He states his blood pressure was at 170 /90 and he took losartan. Patient also reports a history of insomnia for over 10 years but notes it has progressively worsened in the past several days. He reports taking 20mg of ambien with no relief. Patient reports he had a stress test over a year ago with normal results. Denies fevers or chills. Denies nausea, vomiting, or diarrhea. Denies chest pain or palpitations. Denies any other symptoms. 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 Patient states he is physically active and uses a stationary bike at home every day. He is a former smoker (quit over 35 years ago). PCP: Amanda Leung <Raghavendra Hartman - Last Filed: 07/03/17 18:58> <Elina Brumfield - Last Filed: 07/04/17 01:19> - General Chief Complaint: Psychiatric Stated Complaint: ANXIETY Time Seen by Provider: 07/03/17 18:26 Past History <Raghavendra Hartman - Last Filed: 07/03/17 18:58> - Past Medical History HTN: Yes Psychiatric Problems: Yes (ANXIETY, PANIC ATTACKS.) - Family Disease History Family Disease History: Diabetes: Mother (hypertension), Heart Disease: Mother - Psycho/Social/Smoking Cessation Hx Anxiety: No Suicidal Ideation: No Smoking History: Never smoked Have you smoked in the past 12 months: No Number of Cigarettes Smoked Daily: 0 Hx Alcohol Use: Yes (SOCIAL WINE) Drug/Substance Use Hx: No Substance Use Type: None Hx Substance Use Treatment: No <Elina Brumfield - Last Filed: 07/04/17 01:19> - Past Medical History Allergies/Adverse Reactions: Allergies Allergy/AdvReac Type Severity Reaction Status Date / Time No Known Allergies Allergy Verified 07/03/17 17:45 Home Medications: Ambulatory Orders Aspirin [ASA -] 81 mg PO DAILY 07/09/15 Clonazepam [Klonopin] 1 mg PO BID PRN 03/25/17 Losartan Potassium 50 mg PO DAILY 03/25/17 Zolpidem Tartrate [Ambien] 10 mg PO HS 03/25/17 Clonazepam [Klonopin -] 0.5 mg PO BID PRN #0 tablet MDD 2 03/28/17 Tamsulosin HCl [Flomax -] 0.4 mg PO DAILY@0830 #30 cap 03/28/17 Zolpidem Tartrate [Ambien] 10 mg PO HS PRN #30 tablet MDD 1 03/28/17 Paroxetine HCl [Paxil -] 20 mg PO DAILY #30 tablet 07/03/17 Review of Systems - Review of Systems Able to Perform ROS?: Yes Comments:: 07/03/17 18:55 CONSTITUTIONAL: No reported: Fever, Chills, Diaphoresis, Generalized Weakness, Malaise, Loss of Appetite HEENT: No reported: Rhinorrhea, Nasal Congestion, Throat Pain, Throat Swelling, Difficulty Swallowing, Mouth Swelling, Ear Pain, Eye Pain, Visual Changes CARDIOVASCULAR: No reported: Chest Pain, Syncope, Palpitations, Irregular Heart Rate, Lightheadedness, Peripheral Edema RESPIRATORY: No reported: Cough, Shortness of Breath, SOB with Exertion, Orthopnea, Wheezing , Stridor, Hemoptysis GASTROINTESTINAL: No reported: Abdominal pain, Abdominal Distension, Nausea, Vomiting, Diarrhea, Constipation, Melena, Hematochezia GENITOURINARY: No reported: Dysuria, Frequency, Urgency, Hesitancy, Flank Pain, Genital Pain MUSCULOSKELETAL: No reported: Myalgia, Arthralgia, Joint Swelling, Back pain, Neck Pain SKIN: No reported: Rash, Itching, Pallor HEMEATOLOGIC/IMMUNOLOGIC: No reported: Easy Bleeding, Easy Bruising, Lymphadenopathy, Frequent infections ENDOCRINE: No reported: Unexplained Weight Gain, Unexplained Weight Loss, Heat Intolerance , Cold Intolerance NEUROLOGIC: + anxiety, insomnia No reported: Headache, Focal Weakness, Paresthesias, Vertigo, Lightheadedness, Unsteady Gait, Seizure, Incontinence PSYCHIATRIC: No reported: Anxiety, Depression All Other Systems: Reviewed and Negative <Raghavendra Hartman - Last Filed: 07/03/17 18:58> *Physical Exam - Vital Signs Last Vital Signs Temp Pulse Resp BP Pulse Ox 99.1 F 84 20 134/84 100 07/03/17 17:42 07/03/17 17:42 07/03/17 17:42 07/03/17 17:42 07/03/17 17:42 - Physical Exam Comments: 07/03/17 18:56 GENERAL: Well developed, well nourished. Awake and alert. No acute distress. HEENT: Normocephalic, atraumatic. PERRLA, EOMI. No conjunctival pallor. Sclera are non- icteric. Moist mucous membranes. Oropharynx is clear. NECK: Supple. Full ROM. No JVD. Carotid pulses 2+ and symmetric, without bruits. No thyromegaly. No lymphadenopathy. CARDIOVASCULAR: Regular rate and rhythm. No murmurs, rubs, or gallops. Distal pulses are 2+ and symmetric. PULMONARY: No evidence of respiratory distress. Lungs clear to auscultation bilaterally. No wheezing, rales or rhonchi. ABDOMINAL: Soft. Non-tender. Non-distended. No rebound or guarding. No organomegaly. Normoactive bowel sounds. MUSCULOSKELETAL Normal range of motion at all joints. No bony deformities or tenderness. No CVA tenderness. EXTREMITIES: No cyanosis. No clubbing. No edema. No calf tenderness. SKIN: Warm and dry. Normal capillary refill. No rashes. No jaundice. NEUROLOGICAL: Alert, awake, appropriate. Cranial nerves 2-12 intact. No deficits to light touch and temperature in face, upper extremities and lower extremities. No motor deficits in the in face, upper extremities and lower extremities. Normoreflexic in the upper and lower extremities. Normal speech. Toes are down- going bilaterally. Gait is normal without ataxia. PSYCHIATRIC: Cooperative. Good eye contact. Appropriate mood and affect. <Raghavendra Hartman - Last Filed: 07/03/17 18:58> - Vital Signs Last Vital Signs Temp Pulse Resp BP Pulse Ox 99.1 F 84 20 134/84 100 07/03/17 17:42 07/03/17 17:42 07/03/17 17:42 07/03/17 17:42 07/03/17 17:42 <Elina Brumfield - Last Filed: 07/04/17 01:19> ED Treatment Course - LABORATORY CBC & Chemistry Diagram: 07/03/17 21:10 07/03/17 19:15 <Elina Brumfield - Last Filed: 07/04/17 01:19> Medical Decision Making - Medical Decision Making 07/03/17 18:[address] Leung at 18:43 <Raghavendra Hartman - Last Filed: 07/03/17 18:58> - Medical Decision Making 07/03/17 19:43 67-year-old male presents with worsening insomnia and anxiety. He has no suicidal, homicidal ideology. He has been prescribed klonopin for his anxiety. His medications are prescribed by his primary care physician, Dr. Amanda Leung . The patient is not complaining of any chest pain - he said when he is anxious his blood pressure is elevated and he is tachycardic at home. Past medical history -significant for hypertension and takes losartan -ekg shows NSR @ 60 bpm, inc RBBB -currently when I was in the room his ZQ=209/85, 99% pulseox on room air and heartbeat=75 spoke w his PCP and the plan is to have basic blood work,ekg and eprescibe him for klonopin Dr Leung will see paul in the office tomorrow at 2 pm 07/04/17 01:17 labs were unremarkable/neg trop/no anemia/normal renal function <Elina Brumfield - Last Filed: 07/04/17 01:19> *DC/Admit/Observation/Transfer - Attestations Scribe Attestion: 07/03/17 18:56 Documentation prepared by Raghavendra Hartman, acting as medical advisor for Elina Brumfield MD <Raghavendra Hartman - Last Filed: 07/03/17 18:58> <Elina Brumfield - Last Filed: 07/04/17 01:19> Diagnosis at time of Disposition: Anxiety Insomnia Qualifiers: Insomnia type: unspecified Qualified Code(s): G47.00 - Insomnia, unspecified - Discharge Dispostion Disposition: HOME Condition at time of disposition: Stable - Prescriptions Prescriptions: Paroxetine HCl [Paxil -] 20 mg PO DAILY #30 tablet - Referrals Referrals: Amanda Leung MD [Primary Care Provider] - - Patient Instructions Printed Discharge Instructions: DI for Insomnia, DI for Anxiety -- Adult Additional Instructions: PLEASE SEE DR AMANDA LEUNG TOMORROW IN HIS OFFICE AT 2 PM
[2017-07-03 20:02] LABS: ANION GAP 6 (8-16); BILIRUBIN,TOTAL 0.5 mg/dL (0.2-1.0); CALCIUM 9.3 mg/dL (8.5-10.1); CO2 30 mmol/L (21-32); CREATININE 0.8 mg/dL (0.7-1.3); GLUCOSE,RANDOM 88 mg/dL (74-106); SGOT/AST 11 U/L (15-37); SGPT/ALT 18 U/L (12-78)
[2017-07-03 20:03] LABS: ALK PHOS 54 U/L (45-117); CPK 124 IU/L (39-308); TROPONIN I < 0.02 ng/ml (0.00-0.05)
[2017-07-03] MEDS ORDERED: ZOLPIDEM TARTRATE 5 MG TABLET PO ONE (20:38)
[2017-07-03] MEDS ORDERED: ZOLPIDEM TARTRATE 5 MG TABLET ONE (20:49)
[2017-07-03 21:11] LABS: BASOPHIL 0.3 % (0-2.0); EOSINOPHIL 4.8 % (0-4.5); MCH 31.7 pg (25.7-33.7); MCHC 34.8 g/dl (32.0-35.9); MEAN PLT VOLUME 9.1 fl (7.5-11.1); NEUTROPHILS 52.5 % (42.8-82.8); PLATELET COUNT 173 K/MM3 (134-434); RDW 14.1 % (11.9-15.9); WHITE BLOOD COUNT 6.8 K/mm3 (4.0-10.0)
[2017-07-03 21:59] VITALS: BP 117/82; PULSE 63; TEMP 98.6
--- NOTE | 2017-07-04 19:01 | EKG ---
Test Reason : Blood Pressure : / mmHG Vent. Rate : 060 BPM Atrial Rate : 060 BPM P-R Int : 154 ms QRS Dur : 108 ms QT Int : 412 ms P-R-T Axes : 008 003 017 degrees QTc Int : 412 ms NORMAL SINUS RHYTHM INCOMPLETE RIGHT BUNDLE BRANCH BLOCK BORDERLINE ECG WHEN COMPARED WITH ECG OF 26-MAR-2017 09:52, INCOMPLETE RIGHT BUNDLE BRANCH BLOCK IS NOW PRESENT T WAVE VARIATION Confirmed by TERI NUR, CHAIM ([id number]) on 07/04/2017 7:01:30 PM Referred By: Confirmed By:CHAIM WILLIAMSON MD
== END 2017-07-03 22:08 | disposition home or self-care (01) ==
LOC: JER 17:40
DX: F41.9 Anxiety disorder, unspecified (principal); G47.00 Insomnia, unspecified; I10 Essential (primary) hypertension
CPT/HCPCS: 36415; 80053; 84484; 85025; 93005; 93010; 99283-25

== ENCOUNTER 2017-08-19 10:55 | Observation (INO) | payer MEDICARE, OTHER ==
--- NOTE | 2017-08-19 11:27 | PDOC ---
History of Present Illness <Elena Kebede - Last Filed: 08/19/17 13:01> - General History Source: Patient, Family Exam Limitations: No Limitations - History of Present Illness Initial Comments: 08/19/17 11:56 The patient is a 67 year old male, with a significant past medical history of hypertension, anxiety, panic attacks, and rheumatoid arthritis, who presents to the emergency department complaining of diffuse tremors and anxiety since last night. The patient reports last night after his workout, he noted he was increasingly tremulous and weak. Patient denies taken any workout supplements or caffeinated products. Patient reports he was had associated chills and abdominal discomfort, but denies any fever, cough, headache, or dizziness. Patient reports he was taken off his anxiety medication, Klonopin, about 1 week ago secondary to tremors. Since then, patient has been taking Paroxetine with minimal relief of his tremors. Patient reports calling his PCP, who is being covered by Dr. Mauricio, who recommended the patient come to the ED for further evaluation. Patient denies any LOC, tongue biting, urinary incontinence, or bowel incontinence. He reports some palpitations, but denies any chest pain, shortness of breath, diaphoresis, or lower extremity edema. He denies any dysuria, hematuria, frequency, or urgency. He denies any nausea, vomiting, diarrhea, or constipation. He denies any recent travel or sick contacts. Patient last took Paroxetine, Losartan, and Flomax this morning. Allergies: NKDA Past Surgical History: None reported Social History: Diabetes: Mother (hypertension), Heart Disease: Mother. Non smoker. No ETOH or recreational drug use. PCP: Dr. Cherry <Jagjit Ponce - Last Filed: 08/19/17 16:35> - General Chief Complaint: Tremors Stated Complaint: SEIZURE/klonopin withdrawal Time Seen by Provider: 08/19/17 11:27 Past History - Past Medical History HTN: Yes Psychiatric Problems: Yes (ANXIETY, PANIC ATTACKS.) - Family Disease History Family Disease History: Diabetes: Mother (hypertension), Heart Disease: Mother - Suicide/Smoking/Psychosocial Hx Smoking History: Never smoked Have you smoked in the past 12 months: No Number of Cigarettes Smoked Daily: 0 Information on smoking cessation initiated: No Hx Alcohol Use: No Drug/Substance Use Hx: No Substance Use Type: None Hx Substance Use Treatment: No <Elena Kebede - Last Filed: 08/19/17 13:01> <Jagjit Ponce - Last Filed: 08/19/17 16:35> - Past Medical History Allergies/Adverse Reactions: Allergies Allergy/AdvReac Type Severity Reaction Status Date / Time No Known Allergies Allergy Verified 08/19/17 11:12 Home Medications: Ambulatory Orders Aspirin [ASA -] 81 mg PO DAILY 07/09/15 Losartan Potassium 100 mg PO DAILY 03/25/17 Tamsulosin HCl [Flomax -] 0.4 mg PO DAILY@0830 #30 cap 03/28/17 Paroxetine HCl [Paxil -] 20 mg PO DAILY #30 tablet 07/03/17 Review of Systems - Review of Systems Able to Perform ROS?: Yes Comments:: 08/19/17 11:56 GENERAL/CONSTITUTIONAL: Yes chills, weakness. No fever. HEAD, EYES, EARS, NOSE AND THROAT: No change in vision. No ear pain or discharge. No sore throat. CARDIOVASCULAR: Yes palpitations. No chest pain or shortness of breath. RESPIRATORY: No cough, wheezing, or hemoptysis. GASTROINTESTINAL: Yes generalized abdominal pain. No nausea, vomiting, diarrhea or constipation. GENITOURINARY: No dysuria, frequency, or change in urination. MUSCULOSKELETAL: No joint or muscle swelling or pain. No neck or back pain. SKIN: No rash NEUROLOGIC: Yes tremors, weakness. No headache, vertigo, loss of consciousness, or change in sensation. ENDOCRINE: No increased thirst. No abnormal weight change. HEMATOLOGIC/LYMPHATIC: No anemia, easy bleeding, or history of blood clots. ALLERGIC/IMMUNOLOGIC: No hives or skin allergy. <Jagjit Ponce - Last Filed: 08/19/17 16:35> *Physical Exam - Vital Signs Last Vital Signs Temp Pulse Resp BP Pulse Ox 98.7 F 79 18 137/83 100 08/19/17 11:13 08/19/17 11:13 08/19/17 11:13 08/19/17 11:13 08/19/17 11:13 <Elena Kebede - Last Filed: 08/19/17 13:01> - Vital Signs Last Vital Signs Temp Pulse Resp BP Pulse Ox 98.7 F 79 18 137/83 100 10/13/17 11:13 08/19/17 11:13 08/19/17 11:13 08/19/17 11:13 08/19/17 11:13 - Physical Exam Comments: 08/19/17 11:56 GENERAL: Awake, alert, and fully oriented, in no acute distress HEAD: No signs of trauma EYES: PERRLA, EOMI, sclera anicteric, conjunctiva clear ENT: Tongue fasciculations. Auricles normal inspection, hearing grossly normal, nares patent, oropharynx clear without exudates. Moist mucosa NECK: Normal ROM, supple, no lymphadenopathy, JVD, or masses LUNGS: Breath sounds equal, clear to auscultation bilaterally. No wheezes, and no crackles HEART: Holosystolic ejection murmur, Regular rate and rhythm, no rubs or gallops ABDOMEN: Soft, nontender, normoactive bowel sounds. No guarding, no rebound. No masses EXTREMITIES: Ulnar deviations of hands bilaterally. Normal range of motion, no edema. No cords, erythema, or tenderness. NEUROLOGICAL: Diffuse tremors. Cranial nerves II through XII grossly intact. Normal speech, normal gait SKIN: Warm, Dry, normal turgor, no rashes or lesions noted. <Jagjit Ponce - Last Filed: 08/19/17 16:35> ED Treatment Course - LABORATORY CBC & Chemistry Diagram: 08/19/17 12:00 08/19/17 11:45 <Elena Kebede - Last Filed: 08/19/17 13:01> - LABORATORY CBC & Chemistry Diagram: 08/19/17 12:00 08/19/17 11:45 - RADIOLOGY Radiograph Interpretation: 08/19/17 16:34 EXAM: Head CT INTERPRETED BY: Dr. Rojas REVIEWED BY: Dr. Kebede IMPRESSION: No appreciable interval change from 03/25/[address] No acute hemorrhage, mass effect, midline shift or hydrocephalus. Generalized, age appropriate volume loss with microvascular ischemic changes in the cerebral white matter, similar to 03/25/2017. EXAM: CXR INTERPRETED BY: Dr. Dickerson REVIEWED BY: Dr. Kebede IMPRESSION: No significant interval change or acute lung disease is present <Jagjit Ponce - Last Filed: 08/19/17 16:35> Medical Decision Making - Medical Decision Making 08/19/17 12:59 a/p: 67yo male with tremors and anxiety since stopping klonopin 4 days ago -no seizure activity -concern for poss neuro cause of tremors vs vitamin deficiency. -will check labs, ekg, ct head -will discuss with Dr. Cherry -most likely will need observation for further eval and poss neuro eval 08/19/17 13:[address] Multani who accepts pt to service under observation. <Elena Kebede - Last Filed: 08/19/17 13:01> *DC/Admit/Observation/Transfer - Discharge Dispostion Admit: Yes - Attestations Physician Attestion: 08/19/17 13:02 I, Dr. Elena Kebede DO, attest that this document has been prepared under my direction and personally reviewed by me in its entirety. I further attest, that it accurately reflects all work, treatment, procedures and medical decision -making performed by me. <Elena Kebede - Last Filed: 08/19/17 13:01> - Attestations Scribe Attestion: 08/19/17 11:56 Documentation prepared by Jagjit Ponce, acting as medical technologist blood bank for Elena Kebede DO. <Jagjit Ponce - Last Filed: 08/19/17 16:35> Diagnosis at time of Disposition: Tremors of nervous system - Discharge Dispostion Disposition: HOME Condition at time of disposition: Fair - Referrals
[2017-08-19 12:12] LABS: BASOPHIL 0.4 % (0-2.0); EOSINOPHIL 2.7 % (0-4.5); MCH 30.9 pg (25.7-33.7); MCHC 33.4 g/dl (32.0-35.9); MEAN CELL VOLUME 92.5 fl (80-96); NEUTROPHILS 75.7 % (42.8-82.8); PLATELET COUNT 163 K/MM3 (134-434); RDW 14.1 % (11.9-15.9); WHITE BLOOD COUNT 5.9 K/mm3 (4.0-10.0)
[2017-08-19 12:28] LABS: ALBUMIN 4.4 g/dl (3.4-5.0); ANION GAP 12 (8-16); BILIRUBIN,TOTAL 0.8 mg/dL (0.2-1.0); CALCIUM 9.3 mg/dL (8.5-10.1); CO2 27 mmol/L (21-32); CREATININE 0.8 mg/dL (0.7-1.3); GLUCOSE,RANDOM 119 mg/dL (74-106); MAGNESIUM 2.2 mg/dL (1.8-2.4); SGOT/AST 9 U/L (15-37); SGPT/ALT 22 U/L (12-78); TOT PROT 7.4 g/dl (6.4-8.2)
[2017-08-19 12:29] LABS: ALK PHOS 63 U/L (45-117)
--- NOTE | 2017-08-19 13:03 | HP ---
Admitting History and Physical - Primary Care Physician PCP: Sanjay Cherry - Admission Chief Complaint: tremors History of Present Illness: The patient is a 67 year old male, with a significant past medical history of hypertension, anxiety, panic attacks, and rheumatoid arthritis, who presents to the emergency department complaining of diffuse tremors and anxiety since last night. The patient reports last night after his workout, he noted he was increasingly tremulous and weak. Patient denies taken any workout supplements or caffeinated products. Patient reports he was had associated chills and abdominal discomfort, but denies any fever, cough, headache, or dizziness. Patient reports he was taken off his anxiety medication, (Klonopin,0.5mg bid) about 1 week ago secondary to tremors. Since then, patient has been taking Paroxetine with minimal relief of his tremors. Patient reports calling his PCP, who is being covered by Dr. Mauricio, who recommended the patient come to the ED for further evaluation. Patient denies any LOC, tongue biting, urinary incontinence, or bowel incontinence. He reports some palpitations, but denies any chest pain, shortness of breath, diaphoresis, or lower extremity edema. He denies any dysuria, hematuria, frequency, or urgency. He denies any nausea, vomiting, diarrhea, or constipation. He denies any recent travel or sick contacts. Patient last took Paroxetine, Losartan, and Flomax this morning. patient noted that his hand nad feet tremors got worse when he was on klonopin, he said last night he could not sleep bc of palpitations and anxiety and increased tremors so called the office today and was told to come to ER. Allergies: NKDA Past Surgical History: None reported Social History: Diabetes: Mother (hypertension), Heart Disease: Mother. Non smoker. No ETOH or recreational drug use. PCP: Dr. Cherry History Source: Patient - Past Medical History Cardiovascular: Yes: HTN Psych: Yes: Anxiety, Panic Endocrine: Yes: Other (HYPOGONADISM) - Smoking History Smoking history: Never smoked Have you smoked in the past 12 months: No Aproximately how many cigarettes per day: 0 - Alcohol/Substance Use Hx Alcohol Use: No Home Medications - Allergies Allergies/Adverse Reactions: Allergies Allergy/AdvReac Type Severity Reaction Status Date / Time No Known Allergies Allergy Verified 08/19/17 11:12 - Home Medications Home Medications: Ambulatory Orders Aspirin [ASA -] 81 mg PO DAILY 07/09/15 Losartan Potassium 100 mg PO DAILY 03/25/17 Tamsulosin HCl [Flomax -] 0.4 mg PO DAILY@0830 #30 cap 03/28/17 Paroxetine HCl [Paxil -] 20 mg PO DAILY #30 tablet 07/03/17 Review of Systems - Review of Systems Musculoskeletal: reports: Other (tremors) Physical Examination Vital Signs: Vital Signs Temperature 98.7 F 08/19/17 11:13 Pulse Rate 79 08/19/17 11:13 Respiratory Rate 18 08/19/17 11:13 Blood Pressure 137/83 08/19/17 11:13 O2 Sat by Pulse Oximetry (%) 100 08/19/17 11:13 Constitutional: Yes: Calm, Thin Cardiovascular: Yes: Regular Rate and Rhythm, S1, S2 Respiratory: Yes: CTA Bilaterally Gastrointestinal: Yes: Normal Bowel Sounds, Soft Extremities: Yes: Other (tremors of hand finger deformities) Neurological: Yes: Alert, Oriented, Other (fasciculations of tongue) Labs: CBC, BMP 08/19/17 12:00 08/19/17 11:45 Imaging - Results Chest X-ray: Pending Cat Scan: Pending Problem List - Problems (1) Tremors of nervous system Assessment/Plan: admit observation neuro checks CT head check b12,folate,rpr neuro eval Code(s): R25.1 - TREMOR, UNSPECIFIED (2) Anxiety Assessment/Plan: pysch eval h/o panic attacks klonopin stopped secondary to increased tremors paxil Code(s): F41.9 - ANXIETY DISORDER, UNSPECIFIED (3) Elevated BP Assessment/Plan: losartan Code(s): I10 - ESSENTIAL (PRIMARY) HYPERTENSION
[2017-08-19 15:35] VITALS: BMI 22.5
[2017-08-19] MEDS ORDERED: LORazepam 0.5 MG TABLET PO ONE (16:45)
[2017-08-19] MEDS ORDERED: diphenhydrAMINE HCL 25 MG CAPSULE (FP) PO ONE (22:00)
[2017-08-20 08:14] LABS: CHOLESTEROL 140 mg/dL (50-200)
[2017-08-20] MEDS: PARoxetine HCL 20 MG TABLET (FP) PO SCH (09:07)
[2017-08-20] MEDS: TAMSULOSIN HCL 0.4 MG CAP.ER.24H (FP) PO SCH (09:07)
[2017-08-20] MEDS: LOSARTAN POTASSIUM 50 MG TABLET (FP) PO SCH (09:08)
[2017-08-20 12:28] LABS: BASOPHIL 0.5 % (0-2.0); EOSINOPHIL 11.2 % (0-4.5); MCH 30.9 pg (25.7-33.7); MCHC 33.5 g/dl (32.0-35.9); MEAN CELL VOLUME 92.1 fl (80-96); MEAN PLT VOLUME 9.5 fl (7.5-11.1); NEUTROPHILS 40.9 % (42.8-82.8); PLATELET COUNT 160 K/MM3 (134-434); WHITE BLOOD COUNT 5.7 K/mm3 (4.0-10.0)
--- NOTE | 2017-08-20 12:49 | EKG ---
Test Reason : Blood Pressure : / mmHG Vent. Rate : 067 BPM Atrial Rate : 067 BPM P-R Int : 164 ms QRS Dur : 098 ms QT Int : 410 ms P-R-T Axes : 044 003 031 degrees QTc Int : 433 ms NORMAL SINUS RHYTHM NON-SPECIFIC INTRA-VENTRICULAR CONDUCTION DELAY Confirmed by ALLY HASKINS MD ([id number]) on 08/20/2017 12:49:02 PM Referred By: Confirmed By:ALLY HASKINS MD
[2017-08-20 12:51] LABS: ALBUMIN 3.8 g/dl (3.4-5.0); ALK PHOS 53 U/L (45-117); ANION GAP 11 (8-16); BILIRUBIN,TOTAL 0.8 mg/dL (0.2-1.0); CO2 27 mmol/L (21-32); CREATININE 0.8 mg/dL (0.7-1.3); GLUCOSE,RANDOM 78 mg/dL (74-106); MAGNESIUM 2.1 mg/dL (1.8-2.4); PHOSPHOROUS 3.6 mg/dL (2.5-4.9); SGOT/AST 10 U/L (15-37); SGPT/ALT 22 U/L (12-78); TOT PROT 6.7 g/dl (6.4-8.2)
--- NOTE | 2017-08-20 13:12 | PN ---
Progress Note, Physician History of Present Illness: TREMORS - Current Medication List Current Medications: Active Medications Losartan Potassium (Cozaar -) 50 mg PO DAILY [facility] Last Admin: 08/20/17 09:08 Dose: 50 mg Paroxetine HCl (Paxil -) 20 mg PO DAILY [facility] Last Admin: 08/20/17 09:07 Dose: 20 mg Tamsulosin HCl (Flomax -) 0.4 mg PO DAILY@0830 [facility] Last Admin: 08/20/17 09:07 Dose: 0.4 mg - Objective Vital Signs: Vital Signs Temperature 97.4 F L 08/20/17 10:00 Pulse Rate 58 L 08/20/17 10:00 Respiratory Rate 20 08/20/17 10:00 Blood Pressure 141/82 08/20/17 10:00 O2 Sat by Pulse Oximetry (%) 98 08/20/17 04:00 Cardiovascular: Yes: Regular Rate and Rhythm Respiratory: Yes: Regular, CTA Bilaterally Gastrointestinal: Yes: Normal Bowel Sounds, Soft Neurological: Yes: Alert, Oriented, Tremors. No: Facial Droop Labs: CBC, BMP 08/20/17 06:30 08/20/17 06:30 Assessment/Plan - Problems (1) Tremors of nervous system Assessment/Plan: admit observation neuro checks CT head NOTED check b12,folate,rpr neuro eval PSYCH Code(s): R25.1 - TREMOR, UNSPECIFIED (2) Anxiety Assessment/Plan: pysch eval h/o panic attacks klonopin stopped secondary to increased tremors paxil Code(s): F41.9 - ANXIETY DISORDER, UNSPECIFIED (3) Elevated BP Assessment/Plan: losartan Code(s): I10 - ESSENTIAL (PRIMARY) HYPERTENSION
--- NOTE | 2017-08-20 13:30 | CONSULT ---
Consult - text type - Consultation Consultation Note: Neurology History of Present Illness The patient is a 67 year old male, with a significant past medical history of hypertension, anxiety, panic attacks, and rheumatoid arthritis, who presented to the emergency department complaining of diffuse tremors and anxiety. The patient reports after his workout, he noted he was increasingly tremulous and weak. Patient denies taken any workout supplements or caffeinated products. Patient reports he was had associated chills and abdominal discomfort, but denies any fever, cough, headache, or dizziness. Patient reports he was taken off his anxiety medication, Klonopin, about 1 week ago secondary to tremors. Since then, patient has been taking Paroxetine with minimal relief of his tremors. Patient reports calling his PCP, who is being covered by Dr. Mauricio, who recommended the patient come to the ED for further evaluation. Patient denies any LOC, tongue biting, urinary incontinence, or bowel incontinence. He reports some palpitations, but denies any chest pain, shortness of breath, diaphoresis, or lower extremity edema. He denies any dysuria, hematuria, frequency, or urgency. He denies any nausea, vomiting, diarrhea, or constipation. He denies any recent travel or sick contacts. Patient last took Paroxetine, Losartan, and Flomax this morning. CT head completed and did not show acute changes. Patient with less tremor when in conversation and relaxed. Past History - Past Medical History HTN: Yes Psychiatric Problems: Yes (ANXIETY, PANIC ATTACKS.) - Family Disease History Family Disease History: Diabetes: Mother (hypertension), Heart Disease: Mother - Suicide/Smoking/Psychosocial Hx Smoking History: Never smoked Have you smoked in the past 12 months: No Number of Cigarettes Smoked Daily: 0 Information on smoking cessation initiated: No Hx Alcohol Use: No Drug/Substance Use Hx: No Substance Use Type: None Hx Substance Use Treatment: No - Past Medical History Allergies/Adverse Reactions: Allergies Allergy/AdvReac Type Severity Reaction Status Date / Time No Known Allergies Allergy Verified 08/19/17 11:12 Home Medications: Ambulatory Orders Aspirin [ASA -] 81 mg PO DAILY 07/09/15 Losartan Potassium 100 mg PO DAILY 03/25/17 Tamsulosin HCl [Flomax -] 0.4 mg PO DAILY@0830 #30 cap 03/28/17 Paroxetine HCl [Paxil -] 20 mg PO DAILY #30 tablet 07/03/17 Review of Systems GENERAL/CONSTITUTIONAL: Yes chills, weakness. No fever. HEAD, EYES, EARS, NOSE AND THROAT: No change in vision. No ear pain or discharge. No sore throat. CARDIOVASCULAR: Yes palpitations. No chest pain or shortness of breath. RESPIRATORY: No cough, wheezing, or hemoptysis. GASTROINTESTINAL: Yes generalized abdominal pain. No nausea, vomiting, diarrhea or constipation. GENITOURINARY: No dysuria, frequency, or change in urination. MUSCULOSKELETAL: No joint or muscle swelling or pain. No neck or back pain. SKIN: No rash NEUROLOGIC: Yes tremors, weakness. No headache, vertigo, loss of consciousness, or change in sensation. ENDOCRINE: No increased thirst. No abnormal weight change. HEMATOLOGIC/LYMPHATIC: No anemia, easy bleeding, or history of blood clots. ALLERGIC/IMMUNOLOGIC: No hives or skin allergy. *Physical Exam Vital Signs Temperature 97.4 F L 08/20/17 10:00 Pulse Rate 58 L 08/20/17 10:00 Respiratory Rate 20 08/20/17 10:00 Blood Pressure 141/82 08/20/17 10:00 O2 Sat by Pulse Oximetry (%) 98 08/20/17 04:00 GENERAL: Awake, alert, and fully oriented, in no acute distress HEAD: No signs of trauma EYES: PERRLA, EOMI, sclera anicteric, conjunctiva clear ENT: Tongue fasciculations. Auricles normal inspection, hearing grossly normal, nares patent, oropharynx clear without exudates. Moist mucosa NECK: Normal ROM, supple, no lymphadenopathy, JVD, or masses LUNGS: Breath sounds equal, clear to auscultation bilaterally. No wheezes, and no crackles HEART: Holosystolic ejection murmur, Regular rate and rhythm, no rubs or gallops ABDOMEN: Soft, nontender, normoactive bowel sounds. No guarding, no rebound. No masses EXTREMITIES: Ulnar deviations of hands bilaterally. Normal range of motion, no edema. No cords, erythema, or tenderness. NEUROLOGICAL: Diffuse tremors. Cranial nerves II through XII grossly intact. Normal speech, normal gait SKIN: Warm, Dry, normal turgor, no rashes or lesions noted. CBCD WBC 5.7 K/mm3 (4.0-10.0) 08/20/17 06:30 RBC 4.27 M/mm3 (4.00-5.60) 08/20/17 06:30 Hgb 13.2 GM/dL (11.7-16.9) 08/20/17 06:30 Hct 39.3 % (35.4-49) 08/20/17 06:30 MCV 92.1 fl (80-96) 08/20/17 06:30 MCHC 33.5 g/dl (32.0-35.9) 08/20/17 06:30 RDW 14.0 % (11.9-15.9) 08/20/17 06:30 Plt Count 160 K/MM3 (134-434) 08/20/17 06:30 MPV 9.5 fl (7.5-11.1) 08/20/17 06:30 CMP Sodium 139 mmol/L (136-145) 08/20/17 06:30 Potassium 3.9 mmol/L (3.5-5.1) 08/20/17 06:30 Chloride 101 mmol/L (98-107) 08/20/17 06:30 Carbon Dioxide 27 mmol/L (21-32) 08/20/17 06:30 Anion Gap 11 (8-16) 08/20/17 06:30 BUN 19 mg/dL (7-18) H D 08/20/17 06:30 Creatinine 0.8 mg/dL (0.7-1.3) 08/20/17 06:30 Creat Clearance w eGFR > 60 (>60) 08/20/17 06:30 Calcium 9.0 mg/dL (8.5-10.1) 08/20/17 06:30 Total Bilirubin 0.8 mg/dL (0.2-1.0) 08/20/17 06:30 AST 10 U/L (15-37) L 08/20/17 06:30 ALT 22 U/L (12-78) 08/20/17 06:30 Alkaline Phosphatase 53 U/L (45-117) 08/20/17 06:30 Total Protein 6.7 g/dl (6.4-8.2) 08/20/17 06:30 Albumin 3.8 g/dl (3.4-5.0) 08/20/17 06:30 - RADIOLOGY EXAM: Head CT INTERPRETED BY: Dr. Rojas REVIEWED BY: Dr. Kebede IMPRESSION: No appreciable interval change from 03/25/[address] No acute hemorrhage, mass effect, midline shift or hydrocephalus. Generalized, age appropriate volume loss with microvascular ischemic changes in the cerebral white matter, similar to 03/25/2017. EXAM: CXR INTERPRETED BY: Dr. Dickerson REVIEWED BY: Dr. Kebede IMPRESSION: No significant interval change or acute lung disease is present Plan: 67 year old male, with a significant past medical history of hypertension, anxiety, panic attacks, and rheumatoid arthritis, who presented to the emergency department complaining of diffuse tremors and anxiety. The patient reports after his workout, he noted he was increasingly tremulous and weak. CT head completed and did not show acute changes. Patient with less tremor when in conversation and relaxed. Klonipin not effective, long acting valium may be helpful but would hold off benzo's for now. Patient to see therapist and encouraged him to do so. MOnitor BP, continue losartan, goal < 140/90. Relaxation exercises.
[2017-08-20] MEDS ORDERED: diphenhydrAMINE HCL 25 MG CAPSULE (FP) PO ONE ×2 (20:35→23:30)
[2017-08-21 07:46] LABS: BASOPHIL 0.6 % (0-2.0); EOSINOPHIL 7.7 % (0-4.5); MCH 31.1 pg (25.7-33.7); MCHC 33.8 g/dl (32.0-35.9); MEAN PLT VOLUME 9.5 fl (7.5-11.1); NEUTROPHILS 51.8 % (42.8-82.8); PLATELET COUNT 160 K/MM3 (134-434); RDW 13.5 % (11.9-15.9)
[2017-08-21] MEDS: TAMSULOSIN HCL 0.4 MG CAP.ER.24H (FP) PO SCH (08:52)
--- NOTE | 2017-08-21 09:01 | PN ---
Progress Note, Physician History of Present Illness: TREMORS - Current Medication List Current Medications: Active Medications Losartan Potassium (Cozaar -) 50 mg PO DAILY [facility] Last Admin: 08/20/17 09:08 Dose: 50 mg Paroxetine HCl (Paxil -) 20 mg PO DAILY [facility] Last Admin: 08/20/17 09:07 Dose: 20 mg Tamsulosin HCl (Flomax -) 0.4 mg PO DAILY@0830 [facility] Last Admin: 08/21/17 08:52 Dose: 0.4 mg - Objective Vital Signs: Vital Signs Temperature 97.7 F 08/21/17 08:50 Pulse Rate 77 08/21/17 08:50 Respiratory Rate 18 08/21/17 08:50 Blood Pressure 124/80 08/21/17 08:50 O2 Sat by Pulse Oximetry (%) 98 08/20/17 04:00 Neck: Yes: Supple Cardiovascular: Yes: Regular Rate and Rhythm Respiratory: Yes: Regular, CTA Bilaterally Gastrointestinal: Yes: Normal Bowel Sounds, Soft. No: Tenderness Neurological: Yes: Tremors Labs: CBC, BMP 08/21/17 06:40 08/20/17 06:30 Assessment/Plan - Problems (1) Tremors of nervous system Assessment/Plan: admit observation neuro checks CT head NOTED check b12,folate,rpr neuro eval PSYCH Code(s): R25.1 - TREMOR, UNSPECIFIED (2) Anxiety Assessment/Plan: pysch eval h/o panic attacks klonopin stopped secondary to increased tremors paxil Code(s): F41.9 - ANXIETY DISORDER, UNSPECIFIED (3) Elevated BP Assessment/Plan: losartan Code(s): I10 - ESSENTIAL (PRIMARY) HYPERTENSION
--- NOTE | 2017-08-21 09:02 | PN ---
Progress Note, Physician History of Present Illness: TREMORS - Current Medication List Current Medications: Active Medications Alprazolam (Xanax -) 0.5 mg PO TID PRN PRN Reason: ANXIETY Losartan Potassium (Cozaar -) 50 mg PO DAILY [facility] Last Admin: 08/20/17 09:08 Dose: 50 mg Paroxetine HCl (Paxil -) 20 mg PO DAILY [facility] Last Admin: 08/20/17 09:07 Dose: 20 mg Tamsulosin HCl (Flomax -) 0.4 mg PO DAILY@0830 [facility] Last Admin: 08/21/17 08:52 Dose: 0.4 mg - Objective Vital Signs: Vital Signs Temperature 97.7 F 08/21/17 08:50 Pulse Rate 77 08/21/17 08:50 Respiratory Rate 18 08/21/17 08:50 Blood Pressure 124/80 08/21/17 08:50 O2 Sat by Pulse Oximetry (%) 98 08/20/17 04:00 Respiratory: Yes: Regular, CTA Bilaterally Gastrointestinal: Yes: Normal Bowel Sounds, Soft Wound/Incision: Yes: Dressing Dry and Intact Labs: CBC, BMP 08/21/17 06:40 08/20/17 06:30 Assessment/Plan - Problems (1) Tremors of nervous system Assessment/Plan: admit observation neuro checks CT head NOTED check b12,folate,rpr neuro eval PSYCH Code(s): R25.1 - TREMOR, UNSPECIFIED (2) Anxiety Assessment/Plan: pysch eval h/o panic attacks klonopin stopped secondary to increased tremors paxil Code(s): F41.9 - ANXIETY DISORDER, UNSPECIFIED (3) Elevated BP Assessment/Plan: losartan Code(s): I10 - ESSENTIAL (PRIMARY) HYPERTENSION
[2017-08-21] MEDS: PARoxetine HCL 20 MG TABLET (FP) PO SCH (09:03)
[2017-08-21] MEDS: LOSARTAN POTASSIUM 50 MG TABLET (FP) PO SCH (09:03)
[2017-08-21] MEDS: ALPRAZolam 0.25 MG TABLET PO PRN (10:15)
--- NOTE | 2017-08-21 14:46 | PN ---
Mental Health Exam - Mental Status Exam Alert and Oriented to: Time, Place, Person Cognitive Function: Grossly Intact Patient Appearance: Well Groomed Mood: Withdrawn, Anxious ("i feel not so good, get panic attacks") Affect: Appropriate Patient Behavior: Passive (sitting out on chair, eat only small amount. ) Speech Pattern: Perseverating (on his anxiety.. somatic complaint, "why i loss of 39 lbs". ) Voice Loudness: Mildly Soft/Quiet (some tremors evident) Thought Process: Intact Thought Disorder: Not Present Hallucinations: None Suicidal Ideation: None Homicidal Ideation: None Insight/Judgement: Fair Sleep: Poorly (3-4 hours...) Appetite: Weight loss Muscle strength/Tone: Mild Hypertonicity Gait/Station: Shuffling (dragging feet, blank faces.)
--- NOTE | 2017-08-21 15:01 | PN ---
Progress Note, Physician Chief Complaint: "i am not doing well", "my anxiety worsened since i stopped klonopin" "i need tests to find out why i am loosing weight" - Current Medication List Current Medications: Active Medications Alprazolam (Xanax -) 0.5 mg PO TID PRN PRN Reason: ANXIETY Last Admin: 08/21/17 10:15 Dose: 0.5 mg Losartan Potassium (Cozaar -) 50 mg PO DAILY [facility] Last Admin: 08/21/17 09:03 Dose: 50 mg Paroxetine HCl (Paxil -) 20 mg PO DAILY [facility] Last Admin: 08/21/17 09:03 Dose: 20 mg Tamsulosin HCl (Flomax -) 0.4 mg PO DAILY@0830 [facility] Last Admin: 08/21/17 08:52 Dose: 0.4 mg - Objective Vital Signs: Vital Signs Temperature 97.7 F 08/21/17 08:50 Pulse Rate 77 08/21/17 08:50 Respiratory Rate 18 08/21/17 09:00 Blood Pressure 124/80 08/21/17 08:50 O2 Sat by Pulse Oximetry (%) 98 08/20/17 04:00 Constitutional: Yes: Anxious (but client is calmer affect which is incrugent with mood.) Musculoskeletal: Yes: Joint Stiffness, Muscle Pain Psychiatric: Yes: Alert, Oriented (but anxious mood.) Labs: CBC, BMP 08/21/17 06:40 08/20/17 06:30 Problem List - Problems (1) Anxiety Code(s): F41.9 - ANXIETY DISORDER, UNSPECIFIED Assessment/Plan Clientyis 67 yo male sitting up quietly after lunch, emaciated tall, neatly groomed, wearing glasses. alert orientatedby 4. recently stopped taking klonopin 0.5 mg due to worsening tremors but has REBOUND anxiety. Today anxeity less 4/10 as he is on xanax 0.5 po tid. Stated pain starts in stomack, when cannot sleep like last pm, then gets muscle cramps. Takes own bp at home tells to stay home as he will be ill...self fulfill prophesy. Drinks wine socially, no drugs, noted to have fungus treatment on nail, osteoarthritis, parkinsonian like gait. benadryl did not help sleep last pm. Continue paxil 20mg a day. may increase after dischare in 2 weeks. Start Buspar 10mg po tid for anxiety. ambien 5mg po prn for insomnia, while in patient only. not to be given with xanax. spoke with nurse Bermudez on floor for recomendations also. Client agreed with plan also. Thanks for consult.
[2017-08-21] MEDS ORDERED: ZOLPIDEM TARTRATE 5 MG TABLET PO PRN (17:16)
[2017-08-21] MEDS ORDERED: PT OWN MED DRAWER 7, Y5N ONE (20:35)
[2017-08-21] MEDS ORDERED: MINERAL OIL 30 ML UNIT-DOSE CUP PO ONE (20:47)
[2017-08-21] MEDS: POLYETHYLENE GLYCOL 3350 119 GM BTL PO SCH (21:30)
[2017-08-21] MEDS: busPIRone HCL 10 MG TABLET (FP) PO SCH (22:41)
[2017-08-22] MEDS: ALPRAZolam 0.25 MG TABLET PO PRN ×2 (00:03→12:50)
[2017-08-22] MEDS: busPIRone HCL 10 MG TABLET (FP) PO SCH ×3 (05:57→16:04)
[2017-08-22] MEDS: LOSARTAN POTASSIUM 50 MG TABLET (FP) PO SCH (09:50)
--- NOTE | 2017-08-22 10:00 | PN ---
Progress Note (short form) - Note Progress Note: Neurology History of Present Illness The patient is a 67 year old male, with a significant past medical history of hypertension, anxiety, panic attacks, and rheumatoid arthritis, who presented to the emergency department complaining of diffuse tremors and anxiety. The patient reports after his workout, he noted he was increasingly tremulous and weak. Patient denies taken any workout supplements or caffeinated products. Patient reports he was had associated chills and abdominal discomfort, but denies any fever, cough, headache, or dizziness. Patient reports he was taken off his anxiety medication, Klonopin, about 1 week ago secondary to tremors. Since then, patient has been taking Paroxetine with minimal relief of his tremors. Patient reports calling his PCP, who is being covered by Dr. Mauricio, who recommended the patient come to the ED for further evaluation. Patient denies any LOC, tongue biting, urinary incontinence, or bowel incontinence. CT head completed and did not show acute changes. Patient with less tremor when in conversation and relaxed. Was given Ambien for insomnia overnight. Active Medications Alprazolam (Xanax -) 0.5 mg PO TID PRN PRN Reason: ANXIETY Last Admin: 08/22/17 00:03 Dose: 0.5 mg Buspirone HCl (Buspar -) 10 mg PO TID [facility] Last Admin: 08/22/17 05:57 Dose: 10 mg Losartan Potassium (Cozaar -) 50 mg PO DAILY [facility] Last Admin: 08/22/17 09:50 Dose: Not Given Paroxetine HCl (Paxil -) 20 mg PO DAILY [facility] Last Admin: 08/21/17 09:03 Dose: 20 mg Polyethylene Glycol (Miralax (For Daily Use) -) 17 gm PO DAILY [facility] Last Admin: 08/21/17 21:30 Dose: Not Given Tamsulosin HCl (Flomax -) 0.4 mg PO DAILY@0830 [facility] Last Admin: 08/21/17 08:52 Dose: 0.4 mg Zolpidem Tartrate (Ambien -) 5 mg PO HS PRN Last Admin: 08/21/17 22:41 Dose: 5 mg Review of Systems GENERAL/CONSTITUTIONAL: Yes chills, weakness. No fever. HEAD, EYES, EARS, NOSE AND THROAT: No change in vision. No ear pain or discharge. No sore throat. CARDIOVASCULAR: Yes palpitations. No chest pain or shortness of breath. RESPIRATORY: No cough, wheezing, or hemoptysis. GASTROINTESTINAL: Yes generalized abdominal pain. No nausea, vomiting, diarrhea or constipation. GENITOURINARY: No dysuria, frequency, or change in urination. MUSCULOSKELETAL: No joint or muscle swelling or pain. No neck or back pain. SKIN: No rash NEUROLOGIC: Yes tremors, weakness. No headache, vertigo, loss of consciousness, or change in sensation. ENDOCRINE: No increased thirst. No abnormal weight change. HEMATOLOGIC/LYMPHATIC: No anemia, easy bleeding, or history of blood clots. ALLERGIC/IMMUNOLOGIC: No hives or skin allergy. *Physical Exam Vital Signs Period Temp Pulse Resp BP Sys/Escamilla Pulse Ox Last 24 Hr 97.2 F-98.4 F 46-69 18-20 120-137/68-77 GENERAL: Awake, alert, and fully oriented, in no acute distress HEAD: No signs of trauma EYES: PERRLA, EOMI, sclera anicteric, conjunctiva clear ENT: Tongue fasciculations. Auricles normal inspection, hearing grossly normal, nares patent, oropharynx clear without exudates. Moist mucosa NECK: Normal ROM, supple, no lymphadenopathy, JVD, or masses LUNGS: Breath sounds equal, clear to auscultation bilaterally. No wheezes, and no crackles HEART: Holosystolic ejection murmur, Regular rate and rhythm, no rubs or gallops ABDOMEN: Soft, nontender, normoactive bowel sounds. No guarding, no rebound. No masses EXTREMITIES: Ulnar deviations of hands bilaterally. Normal range of motion, no edema. No cords, erythema, or tenderness. NEUROLOGICAL: Diffuse tremors. Cranial nerves II through XII grossly intact. Normal speech, normal gait SKIN: Warm, Dry, normal turgor, no rashes or lesions noted. CBCD WBC 5.7 K/mm3 (4.0-10.0) 08/20/17 06:30 RBC 4.27 M/mm3 (4.00-5.60) 08/20/17 06:30 Hgb 13.2 GM/dL (11.7-16.9) 08/20/17 06:30 Hct 39.3 % (35.4-49) 08/20/17 06:30 MCV 92.1 fl (80-96) 08/20/17 06:30 MCHC 33.5 g/dl (32.0-35.9) 08/20/17 06:30 RDW 14.0 % (11.9-15.9) 08/20/17 06:30 Plt Count 160 K/MM3 (134-434) 08/20/17 06:30 MPV 9.5 fl (7.5-11.1) 08/20/17 06:30 CMP Sodium 139 mmol/L (136-145) 08/20/17 06:30 Potassium 3.9 mmol/L (3.5-5.1) 08/20/17 06:30 Chloride 101 mmol/L (98-107) 08/20/17 06:30 Carbon Dioxide 27 mmol/L (21-32) 08/20/17 06:30 Anion Gap 11 (8-16) 08/20/17 06:30 BUN 19 mg/dL (7-18) H D 08/20/17 06:30 Creatinine 0.8 mg/dL (0.7-1.3) 08/20/17 06:30 Creat Clearance w eGFR > 60 (>60) 08/20/17 06:30 Calcium 9.0 mg/dL (8.5-10.1) 08/20/17 06:30 Total Bilirubin 0.8 mg/dL (0.2-1.0) 08/20/17 06:30 AST 10 U/L (15-37) L 08/20/17 06:30 ALT 22 U/L (12-78) 08/20/17 06:30 Alkaline Phosphatase 53 U/L (45-117) 08/20/17 06:30 Total Protein 6.7 g/dl (6.4-8.2) 08/20/17 06:30 Albumin 3.8 g/dl (3.4-5.0) 08/20/17 06:30 - RADIOLOGY EXAM: Head CT INTERPRETED BY: Dr. Rojas REVIEWED BY: Dr. Kebede IMPRESSION: No appreciable interval change from 03/25/[address] No acute hemorrhage, mass effect, midline shift or hydrocephalus. Generalized, age appropriate volume loss with microvascular ischemic changes in the cerebral white matter, similar to 03/25/2017. EXAM: CXR INTERPRETED BY: Dr. Abdo REVIEWED BY: Dr. Kebede IMPRESSION: No significant interval change or acute lung disease is present Plan: 67 year old male, with a significant past medical history of hypertension, anxiety, panic attacks, and rheumatoid arthritis, who presented to the emergency department complaining of diffuse tremors and anxiety. The patient reports after his workout, he noted he was increasingly tremulous and weak. CT head completed and did not show acute changes. Patient with less tremor when in conversation and relaxed. Klonipin not effective, long acting valium may be helpful but would hold off benzo's for now. Patient to see therapist and encouraged him to do so. Given Ambien for insomnia which helped overnight. Remains relaxed today. Monitor BP, continue losartan, goal < 140/90. Relaxation exercises also discussed, biofeedback. Outpatient follow up discussed.
[2017-08-22] MEDS: TAMSULOSIN HCL 0.4 MG CAP.ER.24H (FP) PO SCH (10:16)
[2017-08-22] MEDS: PARoxetine HCL 20 MG TABLET (FP) PO SCH (10:16)
[2017-08-22] MEDS: POLYETHYLENE GLYCOL 3350 119 GM BTL PO SCH (10:18)
--- NOTE | 2017-08-22 12:37 | HOSP ---
Subjective - Review of Symptoms Events since last encounter: Paged as pt was bradycardic into 40s this AM. Pt was asymptomatic and at this time also denies any symptoms including CP, SOB, palpitations, BUTT, light- headedness, abd pain, N/V/F/C. Pt states he only feels a little "down" but otherwise has no complaints. PE: Gen: AAOx3 C/V: S1S2+, 2/6 systolic murmur best heard at R sternal border Resp: CTA b/l Abd: Soft, NT, normoactive BSx4 Ext: No edema, no calf tenderness EKG shows NSR with RBBB (seen on previous EKG 07/03/17) at [address] segment changes noted. A/P Continue with current medical management. Continue to monitor vitals/HR. Physical Examination Vital Signs: Vital Signs Temperature 97.2 F L 08/22/17 09:00 Pulse Rate 55 L 08/22/17 11:44 Respiratory Rate 18 08/22/17 11:44 Blood Pressure 114/70 08/22/17 11:44 O2 Sat by Pulse Oximetry (%) 98 08/20/17 04:00 Labs: CBC, BMP 08/21/17 06:40 08/20/17 06:30 Visit type - Emergency Visit Emergency Visit: Yes ED Registration Date: 08/19/17 Care time: The patient presented to the Emergency Department on the above date and was hospitalized for further evaluation of their emergent condition. - New Patient This patient is new to me today: Yes Date on this admission: 08/22/17 - Critical Care Critical Care patient: No
[2017-08-22] MEDS ORDERED: PT OWN MED DRAWER 7, Y5N ONE (14:13)
[2017-08-22 15:19] VITALS: BP 116/70; PULSE 53; TEMP 98.1
--- NOTE | 2017-08-22 16:18 | DS ---
Physical Examination Vital Signs: Vital Signs Temperature 98.1 F 08/22/17 15:17 Pulse Rate 53 L 08/22/17 15:17 Respiratory Rate 18 08/22/17 15:17 Blood Pressure 116/70 08/22/17 15:17 O2 Sat by Pulse Oximetry (%) 98 08/20/17 04:00 Constitutional: Yes: No Distress Eyes: Yes: WNL HENT: Yes: WNL, Other Cardiovascular: Yes: WNL Respiratory: Yes: WNL Gastrointestinal: Yes: WNL Musculoskeletal: Yes: Muscle Weakness Extremities: Yes: WNL Edema: No Peripheral Pulses WNL: Yes Integumentary: Yes: WNL Wound/Incision: Yes: Clean/Dry Neurological: Yes: Pre-Existing Deficit, Unsteady Gait, Weakness ...Motor Strength: LLE, RLE Psychiatric: Yes: Agitated, Other Labs: CBC, BMP 08/21/17 06:40 08/20/17 06:30 Discharge Summary Reason For Visit: ANXIETY Current Active Problems Tremors of nervous system (Acute) RA ANXIETY DISORDER Procedures: Principal: CT HEAD Hospital Course: ADMITTED ACUTE TREMORS, SEVERE ANXIETY DISORDER, TREATED WITH PSYCHIATRY AND NEUROLOGY WORKUP, CAN F/U OUTPATIENT Condition: Fair - Instructions Diet, Activity, Other Instructions: LOW SODIUM RELAXATION TECHNIQUES 3 X DAY YOGA [address] CHERRY IN 1 WEEK PSYCHIATRY EVAL Referrals: Sanjay Cherry MD [Primary Care Provider] - Disposition: VNS/HOME HEALTH CARE - Home Medications Comprehensive Discharge Medication List: Ambulatory Orders Losartan Potassium 100 mg PO DAILY 03/25/17 Tamsulosin HCl [Flomax -] 0.4 mg PO DAILY@0830 #30 cap 03/28/17 Paroxetine HCl [Paxil -] 20 mg PO DAILY #30 tablet 07/03/17 Alprazolam [Xanax] 0.5 mg PO TID PRN #0 tablet MDD 3 08/22/17 Aspirin [ASA -] 81 mg PO DAILY #30 tab 08/22/17 Buspirone HCl [Buspar -] 10 mg PO TID #90 tablet 08/22/17 Losartan Potassium [Cozaar -] 50 mg PO DAILY #30 tablet 08/22/17 Paroxetine HCl [Paxil -] 20 mg PO DAILY #30 tablet 08/22/17 Polyethylene Glycol 3350 [Miralax 119 gm Btl -] 17 gm PO DAILY #1 bottle Tamsulosin HCl [Flomax -] 0.4 mg PO DAILY@0830 #30 cap 08/22/17 Zolpidem Tartrate [Ambien] 5 mg PO HS PRN #0 tablet MDD 1 08/22/17
--- NOTE | 2017-08-23 07:07 | EKG ---
Test Reason : Blood Pressure : / mmHG Vent. Rate : 054 BPM Atrial Rate : 054 BPM P-R Int : 162 ms QRS Dur : 110 ms QT Int : 424 ms P-R-T Axes : 050 023 029 degrees QTc Int : 402 ms SINUS BRADYCARDIA INCOMPLETE RIGHT BUNDLE BRANCH BLOCK BORDERLINE ECG WHEN COMPARED WITH ECG OF 19-AUG-2017 12:12, LIKELY NO SIGNIFICANT CHANGES ARE SEEN Confirmed by CHAIM WILLIAMSON MD ([id number]) on 08/23/2017 7:07:45 AM Referred By: XOCHITL CONTRERAS DR Confirmed By:CHAIM WILLIAMSON MD
== END 2017-08-22 18:44 | disposition home health service (06) ==
LOC: JER 10:55 → JERBED 13:02 → J6S 14:40
PROVIDERS: ADMIT Family Medicine; ATTEND Family Medicine
DX: G25.2 Other specified forms of tremor (principal); I10 Essential (primary) hypertension; F41.9 Anxiety disorder, unspecified; F41.0 Panic disorder [episodic paroxysmal anxiety]; M06.9 Rheumatoid arthritis, unspecified; Z79.82 Long term (current) use of aspirin
CPT/HCPCS: 36415; 70450-TC; 71010-TC; 80053; 80061; 82607; 82746; 83721; 83735; 84100; 84443; 85025; 86593; 93005; 93010; 99284-25; G0378

== ENCOUNTER 2018-08-21 08:38 | Observation (INO) | payer MEDICARE, OTHER ==
[2018-08-21 08:44] VITALS: BMI 23.6
--- NOTE | 2018-08-21 09:04 | PDOC ---
Attending Attestation - Resident Resident Name: Pari Garrison - HPI HPI: 08/21/18 10:49 PT presents to the ED complaining of several episodes of palpitations that began early this morning, accompanied by shortness of breath. Denies chest pain , diaphoresis or lightheadness. patient has a history of palpitations for which he was prescribed metoprolol 25 mg by cardiology. He felt that the metoprolol lowered his BP too much, so he has stopped taking it. 08/21/18 12:20 - Physicial Exam PE: 08/21/18 12:22 Agree with resident exam. Patient is alert and oriented and in no acute distress. Lungs are clear. heart has regular rate and rhythm with no murmurs or rubs. abdomen is soft, non tender non distended. - Medical Decision Making 08/21/18 12:30 Pt presents to the ED Complaining of palpitations. EKG shows sinus rhythm with no evidence of ischemia. Labs are within normal limits. Palpitations may be secondary to non compliance with metoprolol, but given patient's history, Dr. Cherry prefers that patient be admitted for observation for r/o ACS.
--- NOTE | 2018-08-21 09:23 | PDOC ---
History of Present Illness - General Chief Complaint: Shortness of Breath Stated Complaint: PALPITATIONS, SOB Time Seen by Provider: 08/21/18 08:52 History Source: Patient - History of Present Illness Initial Comments: 08/21/18 09:22 The patient is a 68 year old male with a PMH of Parkinson's Disease, palpitations, anxiety, HLD who presents to our ED stating "I think I'm having a heart attack." Patient notes 2 isolated episodes one this morning and one three days previous in which he 2-3 minutes of shortness of breath and palpitations both of which were self resolving. No chest pain. Patient currently on Metoprolol for his palpitations but states he only took 1-1/2 pills yesterday and didn't take any Metoprolol today because he felt it lowered his blood pressure too much (SBP 80's). Patient took his other medications today including Floxmax, Paroxetine, Xanax and Carbidopa/Levodopa, and notes he intermittently stops and starts his Cardidopa/Levodopa. Patient notes he has been evaluated by a animal nutrition consultant including stress testing a few weeks previous, however he is not sure of the results. Patient denies abdominal pain, diarrhea/constipation, nausea/vomiting, dysuria/ hematuria. NKDA Social: denies toxic habits PMD: Dr. Cherry Past History - Past Medical History Allergies/Adverse Reactions: Allergies Allergy/AdvReac Type Severity Reaction Status Date / Time No Known Allergies Allergy Verified 08/21/18 08:40 Home Medications: Ambulatory Orders Amlodipine Besylate [Norvasc -] 2.5 mg PO DAILY 08/21/18 Carbidopa/Levodopa [Carbidopa-Levodopa 25-100 Tab] 1 each PO DAILY 08/21/18 Clonazepam 1 mg PO DAILY 08/21/18 Metoprolol Tartrate [Lopressor -] 25 mg PO DAILY 08/21/18 Polyethylene Glycol 3350 [Gavilax] 17 gm PO DAILY 08/21/18 Pramipexole Di-HCl [Pramipexole ER] 0.375 mg PO DAILY 08/21/18 Tamsulosin HCl [Flomax] 0.4 mg PO DAILY 08/21/18 COPD: Yes HTN: Yes Psychiatric Problems: Yes (ANXIETY, PANIC ATTACKS.) Other medical history: PARKINSON - Family Disease History Family Disease History: Diabetes: Mother (hypertension), Heart Disease: Mother - Suicide/Smoking/Psychosocial Hx Smoking History: Never smoked Have you smoked in the past 12 months: No Number of Cigarettes Smoked Daily: 0 Information on smoking cessation initiated: No Hx Alcohol Use: No Drug/Substance Use Hx: No Substance Use Type: None Hx Substance Use Treatment: No Review of Systems - Review of Systems Constitutional: No: Chills, Fever HEENTM: No: Blurred Vision, Double Vision Respiratory: Yes: Cough Cardiac (ROS): Yes: Palpitations. No: Chest Pain, Lightheadedness ABD/GI: No: Constipated, Diarrhea, Nausea, Vomiting : No: Burning, Dysuria *Physical Exam - Vital Signs Last Vital Signs Temp Pulse Resp BP Pulse Ox 98.3 F 75 18 147/77 100 08/21/18 08:40 08/21/18 08:40 08/21/18 08:40 08/21/18 08:40 08/21/18 08:40 - Physical Exam General Appearance: Yes: Nourished HEENT: positive: Normal Voice, Hearing Grossly Normal Neck: positive: Trachea midline, Supple Respiratory/Chest: positive: Lungs Clear, Normal Breath Sounds Cardiovascular: positive: S1, S2. negative: Edema, JVD Vascular Pulses: Dorsalis-Pedis (R): 2+, Doralis-Pedis (L): 2+ Gastrointestinal/Abdominal: positive: Normal Bowel Sounds, Soft Musculoskeletal: negative: CVA Tenderness (R), CVA Tenderness (L) Extremity: positive: Normal Capillary Refill, Normal Inspection Integumentary: positive: Normal Color, Dry, Warm Neurologic: positive: Fully Oriented, Alert ED Treatment Course - LABORATORY CBC & Chemistry Diagram: 08/21/18 09:44 08/21/18 09:44 Medical Decision Making - Medical Decision Making 08/21/18 09:22 68 year old male with palpitations. No chest pain, dyspnea. H/o non-adherence to Metoprolol. VS unremarkable. Will obtain basic labs as well as EKG,Troponin, though ACS less likely. Suspect palpitations 2/2 to medication non-adherence +/ - anxiety. Reassess. 08/21/18 10:36 EKG shows NSR HR 66, non-ischemic as documented in ECG section of this EMR. Troponin (-) x1. No infiltrate, consolidation, pleural effusion on CXR At this time, patient remains free of chest pain, VS stable and is safe for discharge home, however needs close follow-up and counseling on importance of adherence to medication regimen. 08/21/18 10:39 Case d/w PMD requests admission and Dr. Donohue for cardiology. VS stable. Patient and patient's counseled on plan of care. Amenable for admission. Clinical Impression: Palpitations 2/2 to medication non-adherence. *DC/Admit/Observation/Transfer Diagnosis at time of Disposition: Palpitations - Discharge Dispostion Condition at time of disposition: Fair Decision to Admit order: Yes - Referrals - Patient Instructions - Post Discharge Activity
[2018-08-21 09:49] LABS: BASO % 0.8 % (0-2.0); HEMOGLOBIN 14.6 GM/dL (11.7-16.9); LYMPH % 22.6 % (8-40); MCH 30.6 pg (25.7-33.7); MEAN CELL VOLUME 90.1 fl (80-96); MEAN PLT VOLUME 9.2 fl (7.5-11.1); MONO % 7.6 % (3.8-10.2); PLATELET COUNT 141 K/MM3 (134-434); RBC 4.77 M/mm3 (4.00-5.60); RDW 13.6 % (11.9-15.9); WHITE BLOOD COUNT 4.9 K/mm3 (4.0-10.0)
[2018-08-21 10:19] LABS: ALBUMIN 3.9 g/dl (3.4-5.0); ALK PHOS 59 U/L (45-117); ANION GAP 3 MMOL/L (8-16); BILIRUBIN,TOTAL 0.4 mg/dL (0.2-1); BLOOD UREA NITROGEN 19 mg/dL (7-18); CALCIUM 9.5 mg/dL (8.5-10.1); CHLORIDE 105 mmol/L (98-107); CO2 32 mmol/L (21-32); GLUCOSE,RANDOM 115 mg/dL (74-106); N-TERMINAL BNP 58.8 pg/ml (5-125); POTASSIUM 4.2 mmol/L (3.5-5.1); SGOT/AST 15 U/L (15-37); SGPT/ALT 12 U/L (13-61); SODIUM 140 mmol/L (136-145); TOT PROT 7.2 g/dl (6.4-8.2)
[2018-08-21] MEDS ORDERED: ACETAMINOPHEN 325 MG TABLET (FP) PO PRN (16:28)
--- NOTE | 2018-08-21 16:28 | CON.CARD ---
Consult Consult Specialty:: Cardiology Referred by:: Dr. Garrison - ED Reason for Consultation:: Palpitation - History of Present Illness Chief Complaint: Palpitation. History of Present Illness: 68 year old man with a PMHx of HTN, Parkinson disease, palpitations, anxiety, panic attack, and HLD who presented to ED 08/21/2018 with 10 minutes of palpitation with sensation of rapid heart beats. The patient noted 2 isolated episodes in the past 3 days. He had palpitations with sensation of rapid heart beats this morning. His palpitation is self limited and lasted about 10 minutes. He denies chest pain, SOB, dizziness, syncope or near syncope. No edema, orthopnea or PND. Mr. Garcia was seen by Dr. Tamar Fofana (director of scout work at [facility]) for palpitation twice in the past 3 months. Holter monitor 07/22/2018 showed sinus bradycardia with average HR of 58 BPM (38-108 bpm). He was unable to tolerate metoprolol. He took his other medications today including Floxmax, Paroxetine, Xanax and Carbidopa/Levodopa, and notes he intermittently stops and starts his Cardidopa/Levodopa. ECG today in ED was normal with HR of 66 BPM. - Past Medical History Cardio/Vascular: Yes: HTN Psych: Yes: Anxiety, Panic Endocrine: Yes: Other (HYPOGONADISM) - Alcohol/Substance Use Hx Alcohol Use: No - Smoking History Smoking history: Never smoked Have you smoked in the past 12 months: No Aproximately how many cigarettes per day: 0 Home Medications - Allergies Allergies/Adverse Reactions: Allergies Allergy/AdvReac Type Severity Reaction Status Date / Time No Known Allergies Allergy Verified 08/21/18 08:40 - Home Medications Home Medications: Ambulatory Orders Amlodipine Besylate [Norvasc -] 2.5 mg PO DAILY 08/21/18 Carbidopa/Levodopa [Carbidopa-Levodopa 25-100 Tab] 1 each PO DAILY 08/21/18 Clonazepam 1 mg PO DAILY 08/21/18 Metoprolol Tartrate [Lopressor -] 25 mg PO DAILY 08/21/18 Polyethylene Glycol 3350 [Gavilax] 17 gm PO DAILY 08/21/18 Pramipexole Di-HCl [Pramipexole ER] 0.375 mg PO DAILY 08/21/18 Tamsulosin HCl [Flomax] 0.4 mg PO DAILY 08/21/18 Review of Systems - Review of Systems Constitutional: reports: No Symptoms Eyes: reports: No Symptoms HENT: reports: No Symptoms Neck: reports: No Symptoms Cardiovascular: reports: Palpitations Respiratory: reports: No Symptoms Gastrointestinal: reports: No Symptoms Genitourinary: reports: No Symptoms Breasts: reports: No Symptoms Reported Musculoskeletal: reports: No Symptoms Integumentary: reports: No Symptoms Neurological: reports: Tremors Endocrine: reports: No Symptoms Hematology/Lymphatic: reports: No Symptoms Vital Signs: Vital Signs Temperature 97.5 F L 08/21/18 15:53 Pulse Rate 69 08/21/18 15:53 Respiratory Rate 18 08/21/18 15:53 Blood Pressure 119/67 08/21/18 15:53 O2 Sat by Pulse Oximetry (%) 100 08/21/18 08:40 General: Well developed. Well nourished. No acute distress. Head: Normocephalic. Atraumatic, Eyes: PERRLA, EOMI. Sclerae anicteric. Conjunctivae clear. Neck: Supple. No JVD. No bruits. Heart: Normal S1, S2: Regular rhythm and rate. No murmur. No gallop or rub. Lungs: Symmetrical air entry. Clear to auscultation. No crackles. No wheezing or rhonchi. Abdomen: Soft. Bowel sound positive. Non tender. No masses. Extremities: No edema. No clubbing or cyanosis. PD 2+, equal bilaterally. - Other Data Labs, Other Data: CBC, BMP 08/21/18 09:44 08/21/18 09:44 Troponin, BNP 08/21/18 09:44 Troponin I < 0.02 B-Natriuretic Peptide 58.8 Troponin, BNP 08/21/18 09:44 Troponin I < 0.02 B-Natriuretic Peptide 58.8 Assessment/Plan 68 year old man with a PMHx of HTN, Parkinson disease, palpitations, anxiety, panic attack, and HLD who presented to ED 08/21/2018 with 10 minutes of palpitation with sensation of rapid heart beats. Mr. Garcia was seen by Dr. Tamar Fofana (director of scout work at [facility]) for palpitation twice in the past 3 months. Holter monitor 07/22/2018 showed sinus bradycardia with average HR of 58 BPM (38-108 bpm). He was unable to tolerate metoprolol. ECG today in ED was normal with HR of 66 BPM. Recurrent palpitation without associated symptoms, the etilogy is unclear, possible sinus tachycardia. 1) May try carvedilol 3.125 mg BID. 2) Out-pt cardiac follow up with Dr. Fofana. 3) No further cardiac work up recommended at this time. 4) Patient can be discharged from ED. Please call us for reconsult as needed.
[2018-08-21 19:59] LABS: CHOLESTEROL 145 mg/dL (50-200); HDL CHOLESTEROL 54 mg/dL (40-60); TRIGLYCERIDES 52 mg/dL (0-150)
[2018-08-21] MEDS ORDERED: PT OWN MED DRAWER 7, Y5N ONE (20:55)
[2018-08-21] MEDS: CARBIDOPA/LEVODOPA 25/100 TABLET (FP) PO SCH (22:46)
[2018-08-21] MEDS: PRAMIPEXOLE DIHYDROCHLORIDE 0.25 MG TABLET PO SCH (22:47)
[2018-08-22] MEDS ORDERED: PT OWN MED DRAWER 7, Y5N ONE ×3 (04:59→20:56)
[2018-08-22] MEDS: CARBIDOPA/LEVODOPA 25/100 TABLET (FP) PO SCH ×2 (05:07→13:48)
[2018-08-22 07:21] LABS: CHOLESTEROL 127 mg/dL (50-200); HDL CHOLESTEROL 46 mg/dL (40-60); TRIGLYCERIDES 59 mg/dL (0-150)
[2018-08-22] MEDS: clonazePAM 0.5 MG TABLET PO PRN ×2 (08:27→21:15)
[2018-08-22] MEDS: TAMSULOSIN HCL 0.4 MG CAP PO SCH (08:27)
--- NOTE | 2018-08-22 08:41 | HP ---
Admitting History and Physical - Admission History of Present Illness: 68 year old male with a PMH of Parkinson's Disease, palpitations, anxiety, HLD who presents to our ED stating "I think I'm having a heart attack." Patient notes 2 isolated episodes one this morning and one three days previous in which he 2-3 minutes of shortness of breath and palpitations both of which were self resolving. No chest pain. Patient currently on Metoprolol for his palpitations but states he only took 1-1/2 pills yesterday and didn't take any Metoprolol today because he felt it lowered his blood pressure too much (SBP 80's). Patient took his other medications today including Floxmax, Paroxetine, Xanax and Carbidopa/Levodopa, and notes he intermittently stops and starts his Cardidopa/Levodopa. Patient notes he has been evaluated by a cardiovascular operating room nurse including stress testing a few weeks previous, however he is not sure of the results. 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 Cardiovascular: Yes: HTN, Hyperlipdemia, Other (palpitations) Psych: Yes: Anxiety, Panic Endocrine: Yes: Other (HYPOGONADISM) - Smoking History Smoking history: Never smoked Have you smoked in the past 12 months: No Aproximately how many cigarettes per day: 0 - Alcohol/Substance Use Hx Alcohol Use: No Home Medications - Allergies Allergies/Adverse Reactions: Allergies Allergy/AdvReac Type Severity Reaction Status Date / Time No Known Allergies Allergy Verified 08/21/18 08:40 - Home Medications Home Medications: Ambulatory Orders Amlodipine Besylate [Norvasc -] 2.5 mg PO DAILY 08/21/18 Carbidopa/Levodopa [Carbidopa-Levodopa 25-100 Tab] 1 each PO DAILY 08/21/18 Clonazepam 1 mg PO DAILY 08/21/18 Metoprolol Tartrate [Lopressor -] 25 mg PO DAILY 08/21/18 Polyethylene Glycol 3350 [Gavilax] 17 gm PO DAILY 08/21/18 Pramipexole Di-HCl [Pramipexole ER] 0.375 mg PO DAILY 08/21/18 Tamsulosin HCl [Flomax] 0.4 mg PO DAILY 08/21/18 Review of Systems - Review of Systems Constitutional: reports: Weakness Cardiovascular: reports: Palpitations Physical Examination Vital Signs: Vital Signs Temperature 97.4 F L 08/22/18 06:00 Pulse Rate 56 L 08/22/18 06:00 Respiratory Rate 18 08/22/18 06:00 Blood Pressure 110/70 08/22/18 06:00 O2 Sat by Pulse Oximetry (%) 99 08/22/18 05:51 Cardiovascular: Yes: Bradycardia, S1, S2 Respiratory: Yes: Regular, CTA Bilaterally Gastrointestinal: Yes: Normal Bowel Sounds, Soft Edema: No Neurological: Yes: Alert, Tremors, Unsteady Gait, Weakness Labs: CBC, BMP 08/21/18 09:44 08/21/18 09:44 Problem List - Problems (1) Palpitations Assessment/Plan: -R/O TACHYBRADI SYNDROME VS AUTONOMIC DYSFUNCTION -MONITOR ON TELE CARDIO ON BOARD Code(s): R00.2 - PALPITATIONS (2) Parkinson disease Assessment/Plan: RESUME MEDS NEURO PT Code(s): G20 - PARKINSON'S DISEASE (3) Bradykinesia Code(s): R25.8 - OTHER ABNORMAL INVOLUNTARY MOVEMENTS
[2018-08-22] MEDS: POLYETHYLENE GLYCOL 3350 119 GM BTL PO SCH (09:15)
[2018-08-22] MEDS: METOPROLOL TARTRATE 25 MG TABLET (FP) PO SCH (09:15)
[2018-08-22] MEDS: amLODIPine BESYLATE 2.5 MG TABLET (FP) PO SCH (09:15)
--- NOTE | 2018-08-22 12:52 | CONSULT ---
Consult Consult Specialty:: PM&R - History of Present Illness Chief Complaint: wants to go home History of Present Illness: This is a 68 year old man with a medical history of Parkinson's disease, anxiety , panic attacks, palpitations, HTN, HLD, who presented to the ED 08/21/18 with multiple episodes of SOB and palpitations which were self- resolving. He was admitted to Telemetry for monitoring. Cardiology was consulted, who felt pt had sinus tachycardia; cardiac medications were adjusted, and he was recommended to follow-up as outpatient with his personal embedded firmware developer. Physiatry is being consulted for further recommendations. 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 Cardio/Vascular: Yes: HTN, Hyperlipdemia, Other (palpitations) Psych: Yes: Anxiety, Panic Endocrine: Yes: Other (HYPOGONADISM) - Alcohol/Substance Use Hx Alcohol Use: No - Smoking History Smoking history: Never smoked Have you smoked in the past 12 months: No Aproximately how many cigarettes per day: 0 - Social History Usual Living Arrangement: With Spouse (lives with in house with 3 steps to enter then 1st floor set-up) ADL: Independent (Independent in ADLs without AD) Home Medications - Allergies Allergies/Adverse Reactions: Allergies Allergy/AdvReac Type Severity Reaction Status Date / Time No Known Allergies Allergy Verified 08/21/18 08:40 - Home Medications Home Medications: Ambulatory Orders Amlodipine Besylate [Norvasc -] 2.5 mg PO DAILY 08/21/18 Carbidopa/Levodopa [Carbidopa-Levodopa 25-100 Tab] 1 each PO DAILY 08/21/18 Clonazepam 1 mg PO DAILY 08/21/18 Metoprolol Tartrate [Lopressor -] 25 mg PO DAILY 08/21/18 Polyethylene Glycol 3350 [Gavilax] 17 gm PO DAILY 08/21/18 Pramipexole Di-HCl [Pramipexole ER] 0.375 mg PO DAILY 08/21/18 Tamsulosin HCl [Flomax] 0.4 mg PO DAILY 08/21/18 Review of Systems Findings/Remarks: denies fevers, chills, changes in vision/ hearing/ mood, CP, palpitations, SOB, abdominal pain, nausea, vomiting, constipation, diarrhea, dysuria, muscle/ joint pain, numbness/ paresthesias BUE/ BLE Physical Exam Vital Signs: Vital Signs Temperature 98.4 F 08/22/18 09:01 Pulse Rate 53 L 08/22/18 09:01 Respiratory Rate 18 08/22/18 09:01 Blood Pressure 130/78 08/22/18 09:01 O2 Sat by Pulse Oximetry (%) 99 08/22/18 05:51 Musculoskeletal: Yes: Other (General: calm elderly HM sitting in chair NAD, AAO x3, able to sit--> stand independently, ambulated with short- stride shuffling gait a few steps in room (pt was anxious to go further due to Telemetry) N/M: B shoulder flexion to 130 degrees, 4+/5 BUE/ BLE; Pinprick Intact BUE/ BLE Extremities: no BLE pitting edema, no B calf tenderness, +R foot resting tremor but no BUE resting tremor noted) Labs: CBC, BMP 08/21/18 09:44 08/21/18 09:44 Imaging - Results Chest X-ray: Report Reviewed (08/21/18 CXR shows no acute pathology, unchanged since 08/19/17) Assessment/Plan Impression: 1) Deficits mobility/ ADLs 2) Deconditioning 3) Gait abnormality 4) hx Parkinson's disease 5) hx anxiety, panic attacks 6) hx palpitations, HTN, HLD c/b sinus tachycardia, currently monitored on Telemetry 7) BMI WNL 8) Up to date pneumovax, no recent flu shot Recommendations: 1) PT for stretching strengthening ROM and functional mobility 2) Falls, safety precautions 3) Cardiac precautions 4) DVT ppx: encourage ambulation 5) Denies constipation on current bowel regimen 6) Skin protection: float heels, frequent turning 7) Continue plan as per primary team 8) Discharge planning: depending on his medical condition and length of stay, he may be able to return home with services (his preference) versus needing short- stay inpatient rehabilitation Thank you for this referral.
--- NOTE | 2018-08-22 13:03 | EKG ---
Test Reason : Blood Pressure : / mmHG Vent. Rate : 066 BPM Atrial Rate : 066 BPM P-R Int : 154 ms QRS Dur : 102 ms QT Int : 398 ms P-R-T Axes : 055 021 034 degrees QTc Int : 417 ms NORMAL SINUS RHYTHM SEPTAL INFARCT , AGE UNDETERMINED ABNORMAL ECG WHEN COMPARED WITH ECG OF 22-AUG-2017 11:56, INCOMPLETE RIGHT BUNDLE BRANCH BLOCK IS NO LONGER PRESENT Confirmed by MD CECILIA, BRISA ([id number]) on 08/22/2018 1:02:50 PM Referred By: Confirmed By:BRISA BROOKS MD
--- NOTE | 2018-08-22 18:58 | CON.NEURO ---
Consult Consult Specialty:: NEUROLOGY-JESSIE NUR Reason for Consultation:: PD - History of Present Illness History of Present Illness: 68 year old male with a PMH of Parkinson's Disease, palpitations, anxiety, HLD who presents to our ED stating "I think I'm having a heart attack." Patient notes 2 isolated episodes one this morning and one three days previous in which he 2-3 minutes of shortness of breath and palpitations both of which were self resolving. No chest pain. Patient currently on Metoprolol for his palpitations but states he only took 1-1/2 pills yesterday and didn't take any Metoprolol today because he felt it lowered his blood pressure too much (SBP 80's). Patient took his other medications today including Floxmax, Paroxetine, Xanax and Carbidopa/Levodopa, and notes he intermittently stops and starts his Cardidopa/Levodopa. Patient notes he has been evaluated by a computer peripheral equipment operator including stress testing a few weeks previous, however he is not sure of the results. -Pt. is being rx. by myself as outpt. for PD, he keeps changing his meds at will , has poor compliance. Most recently i placed him on Mirapex 1mgtid and Stalevo 25/200 one tab tid but he is not taking it, he still takes his old sinemet tablets. 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 Cardio/Vascular: Yes: HTN, Hyperlipdemia, Other (palpitations) Psych: Yes: Anxiety, Panic Endocrine: Yes: Other (HYPOGONADISM) - Alcohol/Substance Use Hx Alcohol Use: No - Smoking History Smoking history: Never smoked Have you smoked in the past 12 months: No Aproximately how many cigarettes per day: 0 - Social History Usual Living Arrangement: With Spouse (lives with in house with 3 steps to enter then 1st floor set-up) ADL: Independent (Independent in ADLs without AD) Home Medications - Allergies Allergies/Adverse Reactions: Allergies Allergy/AdvReac Type Severity Reaction Status Date / Time No Known Allergies Allergy Verified 08/21/18 08:40 - Home Medications Home Medications: Ambulatory Orders Amlodipine Besylate [Norvasc -] 2.5 mg PO DAILY 08/21/18 Carbidopa/Levodopa [Carbidopa-Levodopa 25-100 Tab] 1 each PO DAILY 08/21/18 Clonazepam 1 mg PO DAILY 08/21/18 Metoprolol Tartrate [Lopressor -] 25 mg PO DAILY 08/21/18 Polyethylene Glycol 3350 [Gavilax] 17 gm PO DAILY 08/21/18 Pramipexole Di-HCl [Pramipexole ER] 0.375 mg PO DAILY 08/21/18 Tamsulosin HCl [Flomax] 0.4 mg PO DAILY 08/21/18 Physical Exam-Neuro Vital Signs: Vital Signs Temperature 97.8 F 08/22/18 16:45 Pulse Rate 55 L 08/22/18 16:45 Respiratory Rate 18 08/22/18 16:45 Blood Pressure 130/80 08/22/18 16:45 O2 Sat by Pulse Oximetry (%) 99 08/22/18 14:00 Labs: CBC, BMP 08/21/18 09:44 08/21/18 09:44 - Neuro Exam Speech: Other (monotonous, festiunant) Dominant Hand: Right Mini Mental Exam: Slowed processing speed DTR's: 2+ Left Bicep, 2+ Right Bicep, 2+ Left Tricep, 2+ Right Tricep, 2+ Left Brachioradialis, 2+ Right Brachioradialis, 2+ Left Achilles, 2+ Right Achilles Movement Disorders: Other (+ bradykinesia and bilat ue minimal restingb tremors) Motor Strength: 5/5: Left Arm, Right Arm, Left Leg, Right Leg Gait: Other (short steps, stooped, shuffling) Assessment/Plan Pt. with worsened PD due to medication non-compliance. Would keep him on Stalevo 25/200, 1 tid and Mirapex 1mgtid. Pls ask him to obtain appt. in my office upon discharge.
[2018-08-22] MEDS: CARBIDOP 25MG/LEVODOPA 100MG/ENTACAPONE 200MG TABLET PO SCH (21:15)
[2018-08-22] MEDS: PRAMIPEXOLE DIHYDROCHLORIDE 0.25 MG TABLET PO SCH (21:15)
[2018-08-23] MEDS: CARBIDOP 25MG/LEVODOPA 100MG/ENTACAPONE 200MG TABLET PO SCH ×2 (05:35→14:56)
[2018-08-23] MEDS: amLODIPine BESYLATE 2.5 MG TABLET (FP) PO SCH (09:12)
[2018-08-23] MEDS: TAMSULOSIN HCL 0.4 MG CAP PO SCH (09:12)
[2018-08-23] MEDS: clonazePAM 0.5 MG TABLET PO PRN (09:12)
[2018-08-23] MEDS: POLYETHYLENE GLYCOL 3350 119 GM BTL PO SCH (09:13)
[2018-08-23] MEDS: METOPROLOL TARTRATE 25 MG TABLET (FP) PO SCH (09:15)
--- NOTE | 2018-08-23 10:39 | EKG ---
Test Reason : Blood Pressure : / mmHG Vent. Rate : 060 BPM Atrial Rate : 060 BPM P-R Int : 160 ms QRS Dur : 108 ms QT Int : 416 ms P-R-T Axes : 021 012 021 degrees QTc Int : 416 ms NORMAL SINUS RHYTHM INCOMPLETE RIGHT BUNDLE BRANCH BLOCK BORDERLINE ECG WHEN COMPARED WITH ECG OF 21-AUG-2018 08:40, NO SIGNIFICANT CHANGE WAS FOUND Confirmed by SOFY NUR, WESLY ([id number]) on 08/23/2018 10:39:44 AM Referred By: SUMMER COY Confirmed By:WESLY GOETZ MD
[2018-08-23] MEDS ORDERED: CARVEDILOL 3.125 MG TABLET (FP) PO SCH (14:00)
[2018-08-23] MEDS ORDERED: PT OWN MED DRAWER 7, Y5N ONE ×2 (14:11→14:14)
[2018-08-23 14:41] VITALS: BP 128/75; PULSE 73; TEMP 98.4
--- NOTE | 2018-08-23 14:54 | PN ---
Progress Note, Physician History of Present Illness: seen and examined today in [facility]. this am was feeling palpitations and anxiety. received klonopin and symptoms improved. - Current Medication List Current Medications: Active Medications Acetaminophen (Tylenol -) 650 mg PO Q6H PRN PRN Reason: PAIN OR FEVER Amlodipine Besylate (Norvasc -) 2.5 mg PO DAILY [facility] Last Admin: 08/23/18 09:12 Dose: 2.5 mg Carbidopa/Levodopa/Entacapone (Stalevo 100 -) 1 tab PO TID [facility] Last Admin: 08/23/18 05:35 Dose: 1 tab Carvedilol (Coreg -) 3.125 mg PO BID [facility] Clonazepam (Klonopin -) 1 mg PO Q12H PRN PRN Reason: ANXIETY Last Admin: 08/23/18 09:12 Dose: 1 mg Polyethylene Glycol (Miralax (For Daily Use) -) 17 gm PO DAILY [facility] Last Admin: 08/23/18 09:13 Dose: 17 grams Pramipexole Dihydrochloride (Mirapex -) 0.25 mg PO HS [facility] Last Admin: 08/22/18 21:15 Dose: 0.25 mg Tamsulosin HCl (Flomax -) 0.4 mg PO DAILY@0830 [facility] Last Admin: 08/23/18 09:12 Dose: 0.4 mg - Objective Vital Signs: Vital Signs Temperature 98.4 F 08/23/18 14:00 Pulse Rate 73 08/23/18 14:00 Respiratory Rate 16 08/23/18 14:00 Blood Pressure 128/75 08/23/18 14:00 O2 Sat by Pulse Oximetry (%) 98 08/23/18 05:51 Constitutional: Yes: No Distress, Calm Eyes: Yes: Conjunctiva Clear, EOM Intact, PERRL HENT: Yes: Atraumatic, Normocephalic Neck: Yes: Supple, Trachea Midline Cardiovascular: Yes: Regular Rate and Rhythm, S1, S2. No: Bradycardia, Tachycardia, Pulse Irregular, Bruit, JVD, Gallop, Murmur, Rub, S3, S4, Varicosities Respiratory: Yes: Regular, CTA Bilaterally. No: Rales, Rhonchi, SOB, Wheezes Gastrointestinal: Yes: Normal Bowel Sounds, Soft. No: Distention, Tenderness Extremities: Yes: WNL Edema: No Peripheral Pulses WNL: Yes Neurological: Yes: Alert, Oriented Psychiatric: Yes: Alert, Oriented Labs: CBC, BMP 08/21/18 09:44 08/21/18 09:44 - ....Imaging Chest X-ray: Report Reviewed, Image Reviewed EKG: Report Reviewed, Image Reviewed Other: Report Reviewed, Image Reviewed (tele-nsr, pvcs) Assessment/Plan 68 year old man with a PMHx of HTN, Parkinson disease, palpitations, anxiety, panic attack, and HLD who presented to ED 08/21/2018 with 10 minutes of palpitation with sensation of rapid heart beats. Mr. Garcia was seen by Dr. Tamar Fofana (cyber security analyst at [facility]) for palpitation twice in the past 3 months. Holter monitor 07/22/2018 showed sinus bradycardia with average HR of 58 BPM (38-108 bpm). He was unable to tolerate metoprolol. ECG today in ED was normal with HR of 66 BPM. Recurrent palpitation-uncertain etiology -frequent PVCs seen on tele today -change metoprolol to Carvedilol 3.125 mg BID as trial to suppress PVCs as he was unable to tolerate Metoprolol -Close out-pt cardiac follow up with Dr. Fofana. -No further ischemic work up is needed as inpatient No other inpatient cardiac work up is needed at this point. Please call us for reconsult as needed.
[2018-08-23] MEDS ORDERED: PRAMIPEXOLE DIHYDROCHLORIDE 1 MG TABLET PO SCH (16:00)
--- NOTE | 2018-08-23 16:04 | DS ---
Physical Examination Vital Signs: Vital Signs Temperature 98.4 F 08/23/18 14:00 Pulse Rate 73 08/23/18 14:00 Respiratory Rate 16 08/23/18 14:00 Blood Pressure 128/75 08/23/18 14:00 O2 Sat by Pulse Oximetry (%) 98 08/23/18 05:51 Findings/Remarks: 68 year old male with a PMH of Parkinson's Disease, palpitations, anxiety, HLD who presents to our ED stating "I think I'm having a heart attack." Patient notes 2 isolated episodes one this morning and one three days previous in which he 2-3 minutes of shortness of breath and palpitations both of which were self resolving. No chest pain. Patient currently on Metoprolol for his palpitations but states he only took 1-1/2 pills yesterday and didn't take any Metoprolol today because he felt it lowered his blood pressure too much (SBP 80's). Patient took his other medications today including Floxmax, Paroxetine, Xanax and Carbidopa/Levodopa, and notes he intermittently stops and starts his Cardidopa/Levodopa. Patient notes he has been evaluated by a telecommunications analyst including stress testing a few weeks previous, however he is not sure of the results. -Pt. is being rx. by myself as outpt. for PD, he keeps changing his meds at will , has poor compliance. Most recently i placed him on Mirapex 1mgtid and Stalevo 25/200 one tab tid but he is not taking it, he still takes his old sinemet tablets. He c/o bradykinesia and slowed gait which he has had x 3 months when he started not taking meds properly Constitutional: Yes: Well Nourished, No Distress, Calm Cardiovascular: Yes: Regular Rate and Rhythm Respiratory: Yes: Regular Gastrointestinal: Yes: Normal Bowel Sounds, Soft Musculoskeletal: Yes: Muscle Weakness Edema: No Peripheral Pulses WNL: Yes Neurological: Yes: Alert, Oriented, Other (forgetful) Psychiatric: Yes: Alert, Oriented Labs: CBC, BMP 08/21/18 09:44 08/21/18 09:44 Discharge Summary Reason For Visit: PALPITATIONS Current Active Problems Palpitations (Acute) Parkinson disease (Acute) Hospital Course: Laboratory Last Values WBC 4.9 K/mm3 (4.0-10.0) 08/21/18 09:44 RBC 4.77 M/mm3 (4.00-5.60) 08/21/18 09:44 Hgb 14.6 GM/dL (11.7-16.9) 08/21/18 09:44 Hct 43.0 % (35.4-49) 08/21/18 09:44 MCV 90.1 fl (80-96) 08/21/18 09:44 MCH 30.6 pg (25.7-33.7) 08/21/18 09:44 MCHC 34.0 g/dl (32.0-35.9) 08/21/18 09:44 RDW 13.6 % (11.9-15.9) 08/21/18 09:44 Plt Count 141 K/MM3 (134-434) 08/21/18 09:44 MPV 9.2 fl (7.5-11.1) 08/21/18 09:44 Absolute Neuts (auto) 3.0 K/mm3 (1.5-8.0) 08/21/18 09:44 Neutrophils % 62.0 % (42.8-82.8) 08/21/18 09:44 Lymphocytes % 22.6 % (8-40) D 08/21/18 09:44 Monocytes % 7.6 % (3.8-10.2) 08/21/18 09:44 Eosinophils % 7.0 % (0-4.5) H 08/21/18 09:44 Basophils % 0.8 % (0-2.0) 08/21/18 09:44 Nucleated RBC % 0 % (0-0) 08/21/18 09:44 Sodium 140 mmol/L (136-145) 08/21/18 09:44 Potassium 4.2 mmol/L (3.5-5.1) 08/21/18 09:44 Chloride 105 mmol/L (98-107) 08/21/18 09:44 Carbon Dioxide 32 mmol/L (21-32) 08/21/18 09:44 Anion Gap 3 MMOL/L (8-16) L 08/21/18 09:44 BUN 19 mg/dL (7-18) H 08/21/18 09:44 Creatinine 1.0 mg/dL (0.55-1.3) 08/21/18 09:44 Creat Clearance w eGFR > 60 (>60) 08/21/18 09:44 Random Glucose 115 mg/dL (74-106) H 08/21/18 09:44 Calcium 9.5 mg/dL (8.5-10.1) 08/21/18 09:44 Total Bilirubin 0.4 mg/dL (0.2-1) 08/21/18 09:44 AST 15 U/L (15-37) 08/21/18 09:44 ALT 12 U/L (13-61) L 08/21/18 09:44 Alkaline Phosphatase 59 U/L (45-117) 08/21/18 09:44 Creatine Kinase 67 IU/L (26-308) 08/22/18 06:00 Troponin I < 0.02 ng/ml (0.00-0.05) 08/22/18 06:00 B-Natriuretic Peptide 58.8 pg/ml (5-125) 08/21/18 09:44 Total Protein 7.2 g/dl (6.4-8.2) 08/21/18 09:44 Albumin 3.9 g/dl (3.4-5.0) 08/21/18 09:44 Triglycerides 59 mg/dL (0-150) 08/22/18 06:00 Cholesterol 127 mg/dL (50-200) 08/22/18 06:00 Total LDL Cholesterol 74 mg/dL (5-100) 08/22/18 06:00 HDL Cholesterol 46 mg/dL (40-60) 08/22/18 06:00 TSH 1.05 uIU/ml (0.358-3.74) D 08/21/18 09:44 Condition: Stable - Instructions Referrals: Scarlett Kwan MD [Staff Physician] - Sanjay Cherry MD [Primary Care Provider] - Tamar Fofana MD [Non Staff, Medical] - Disposition: VNS/HOME HEALTH CARE - Home Medications Comprehensive Discharge Medication List: Ambulatory Orders Amlodipine Besylate [Norvasc -] 2.5 mg PO DAILY 08/21/18 Polyethylene Glycol 3350 [Gavilax] 17 gm PO DAILY 08/21/18 Tamsulosin HCl [Flomax] 0.4 mg PO DAILY 08/21/18 Acetaminophen [Tylenol .Regular Strength -] 650 mg PO Q6H PRN tablet 08/23/18 [id number] [Stalevo 100 -] 1 tab PO TID #90 tablet 08/23/18 Carvedilol [Coreg -] 3.125 mg PO BID #60 tablet 08/23/18 Polyethylene Glycol 3350 [Miralax 119 gm Btl -] 17 gm PO DAILY bottle 08/23/18 Pramipexole Dihydrochloride [Mirapex -] 1 mg PO TID #90 tablet 08/23/18 Tamsulosin HCl [Flomax -] 0.4 mg PO DAILY@0830 cap.er.24h 08/23/18 clonazePAM [Klonopin -] 1 mg PO Q12H PRN #10 tablet MDD 2 08/23/18
== END 2018-08-23 19:08 | disposition home health service (06) ==
LOC: JER 08:38 → JERBED 10:39 → J4S 19:06
PROVIDERS: ADMIT Family Medicine; ATTEND Family Medicine
DX: R00.2 Palpitations (principal); G20 Parkinson's disease; R25.8 Other abnormal involuntary movements; I10 Essential (primary) hypertension; E78.5 Hyperlipidemia, unspecified; F41.9 Anxiety disorder, unspecified; J44.9 Chronic obstructive pulmonary disease, unspecified; Z91.14 Patient's other noncompliance with medication regimen
CPT/HCPCS: 36415; 71045-TC-FY; 80053; 80061; 82550; 83721; 83880; 84443; 84484; 85025; 93005; 93010; 97116-GP; 97162-GP; 99284-25; G0378

== ENCOUNTER 2018-11-17 08:19 | Observation (INO) | payer MEDICARE, OTHER ==
--- NOTE | 2018-11-17 08:49 | PDOC ---
History of Present Illness - General Chief Complaint: Chest Pain Stated Complaint: PALPITATIONS Time Seen by Provider: 11/17/18 08:48 History Source: Patient - History of Present Illness Initial Comments: 11/17/18 08:54 Patient is a 68 year old male with a PMH of palpitations, Parkinson's Disease, HLD presents to our ED c/o chest tightness. Chest tightness has been occuring for 2-3 weeks and is intermittent, localized to his L clavicle and lasts for 10 minutes. Notes that at baseline he is active and exercises 1+ hour daily on a stationary bike daily, however yesterday after 5 minutes he felt very tired and didn't feel like he could continue biking. Patient went home and rested for the remainder of the day. Patient decided to present to the ED this morning as he still felt fatigued and he had some intermittent chest tightness when waking up that resolved prior to presentation. Patient denies association shortness of breath, lightheadedness. 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 H/o negative stress test 2 years previous. The patient denies abdominal pain, nausea/vomiting, diarrhea/constipation, dysuria/hematuria. NKDA PMD: Dr. Cherry Cardiology: Dr. Fofana Past History - Past Medical History Allergies/Adverse Reactions: Allergies Allergy/AdvReac Type Severity Reaction Status Date / Time No Known Allergies Allergy Verified 08/21/18 08:40 Home Medications: Ambulatory Orders Polyethylene Glycol 3350 [Gavilax] 17 gm PO DAILY 08/21/18 Tamsulosin HCl [Flomax] 0.4 mg PO DAILY 08/21/18 Acetaminophen [Tylenol .Regular Strength -] 650 mg PO Q6H PRN tablet 08/23/18 [id number] [Stalevo 100 -] 1 tab PO TID #90 tablet 08/23/18 Carvedilol [Coreg -] 3.125 mg PO BID #60 tablet 08/23/18 Pramipexole Dihydrochloride [Mirapex -] 1 mg PO TID #90 tablet 08/23/18 clonazePAM [Klonopin -] 1 mg PO Q12H PRN #10 tablet MDD 2 08/23/18 Aspirin 81 mg PO DAILY 11/18/18 COPD: Yes HTN: Yes Psychiatric Problems: Yes (ANXIETY, PANIC ATTACKS.) - Family Disease History Family Disease History: Diabetes: Mother (hypertension), Heart Disease: Mother - Suicide/Smoking/Psychosocial Hx Smoking History: Unknown if ever smoked Have you smoked in the past 12 months: No Number of Cigarettes Smoked Daily: 0 Hx Alcohol Use: No Drug/Substance Use Hx: No Substance Use Type: None Hx Substance Use Treatment: No Review of Systems - Review of Systems Constitutional: No: Chills, Fever HEENTM: No: Recent change in vision, Throat Pain Respiratory: No: Cough, Shortness of Breath Cardiac (ROS): Yes: Chest Tightness. No: Lightheadedness, Syncope ABD/GI: No: Constipated, Diarrhea, Nausea, Vomiting : No: Burning, Dysuria *Physical Exam - Vital Signs Last Vital Signs Temp Pulse Resp BP Pulse Ox 97.9 F 57 L 14 142/71 99 11/17/18 08:27 11/17/18 08:27 11/17/18 08:27 11/17/18 08:27 11/17/18 08:27 - Physical Exam General Appearance: Yes: Nourished, Appropriately Dressed HEENT: positive: Normal Voice, Hearing Grossly Normal Neck: positive: Trachea midline, Supple Respiratory/Chest: positive: Lungs Clear, Normal Breath Sounds. negative: Labored Respiration, Rapid RR Cardiovascular: positive: S1, S2 Vascular Pulses: Dorsalis-Pedis (R): 2+, Doralis-Pedis (L): 2+ Gastrointestinal/Abdominal: positive: Normal Bowel Sounds, Soft. negative: Distended, Guarding, Rebound, Tenderness Extremity: positive: Normal Capillary Refill, Normal Inspection Integumentary: positive: Normal Color, Dry, Warm Neurologic: positive: Fully Oriented, Alert Moderate Sedation - Procedure Monitoring Vital Signs: Procedure Monitoring Vital Signs Temperature 97.9 F 11/17/18 08:27 Pulse Rate 57 L 11/17/18 08:27 Respiratory Rate 14 11/17/18 08:27 Blood Pressure 142/71 11/17/18 08:27 O2 Sat by Pulse Oximetry (%) 99 11/17/18 08:27 Heart Score/ECG Review - ECG Impressions Comment:: 11/17/18 08:53 EKG shows HR 49, RBB, normal intervals, no CASSANDRA/STD/TWI, poor R wave progression V1-V6; no acute changes with EKG dated 08/23 ED Treatment Course - LABORATORY CBC & Chemistry Diagram: 11/18/18 06:30 11/18/18 06:30 Medical Decision Making - Medical Decision Making 11/17/18 09:40 68 year old male with intermittent chest tightness for 2-3 weeks, episode post exertional lightheadedness yesterday. VS unremarkable. Frontal diagnosis: r/o ACS, Angina, Esophageal Spasm, GERD. Considered TIA/CVA however less likely as no neurological complaints/deficit on exam. Will obtain Troponin, EKG, CXR, basic labs. Patient declining pain medication at this time. Reassess. 11/17/18 10:29 CBC unremarkable EKG non-ischemic as documented in EKG section of EMR 11/17/18 10:53 Trop, BNP negative Patient reassessed @ bedside, states no chest pain Heart Score 3 Low clinical suspicion for ACS, however given symptomatic post exertional changes + chest tightness will admit for further evaluation. 11/17/18 10:56 Case d/w Dr. Cherry - will admit for further evaluation. Requests Dr. Donohue for cardiology. Clinical Impression: Chest tightness possibly angina? *DC/Admit/Observation/Transfer Diagnosis at time of Disposition: Chest tightness - Discharge Dispostion Condition at time of disposition: Fair Decision to Admit order: Yes - Referrals - Patient Instructions - Post Discharge Activity
--- NOTE | 2018-11-17 09:25 | PDOC ---
Attending Attestation - Resident Resident Name: Pari Garrison - ED Attending Attestation I have performed the following: I have examined & evaluated the patient, The case was reviewed & discussed with the resident, I agree w/resident's findings & plan, Exceptions are as noted - HPI HPI: 11/17/18 11:02 68 yo M presenting to the ER with a complaint of chest tightness This has been present for several weeks Pain is intermittent No shortness of breath Associated with fatigue Pt states he typically does 1 hour on the stationary bike Yesterday at the gym, he was only able to complete 5 minutes due to fatigue - Physicial Exam PE: 11/17/18 10:28 GENERAL: The patient is in no acute distress. HEAD: Normal with no signs of trauma. EYES: PERRLA, EOMI, sclera anicteric, conjunctiva clear. ENT: Ears normal, nares patent, oropharynx clear without exudates. Moist mucous membranes. NECK: Normal range of motion, supple without lymphadenopathy, JVD, or masses. LUNGS: Breath sounds equal, clear to auscultation bilaterally. No wheezes, and no crackles. HEART:Regular rate and rhythm, normal S1 and S2 without murmur, rub or gallop. ABDOMEN: Soft, nontender, normoactive bowel sounds. No guarding, no rebound. No masses palpable. EXTREMITIES: Normal range of motion, no edema. No clubbing or cyanosis. No erythema, or tenderness. NEUROLOGICAL: Cranial nerves II through XII grossly intact. Normal speech. No focal neurological deficits. MUSCULOSKELETAL: Back non-tender to palpation, no CVA tenderness SKIN: Warm, Dry, normal turgor, no rashes or lesions noted. - Medical Decision Making 11/17/18 10:26 Laboratory Tests 11/17/18 11/17/18 09:24 09:36 WBC 5.4 Hgb 14.0 Hct 42.6 Plt Count 161 Sodium 138 Potassium 4.6 Chloride 104 Carbon Dioxide 30 BUN 19 H Creatinine 1.0 Random Glucose 107 H Creatine Kinase 111 B-Natriuretic Peptide 54.5 EKG: NSR rate of 49 bpm, axis nml, intervals nml - pr: 162ms, QRS: 108ms, QTc: 386, Incomplete RBBB 11/17/18 11:09 CXR - no acute infiltrate, consolidation, mediastinum nml, no pleural effusion Pt admitted to Dr Posey Clinical Impression: chest pain, initial presentation Angina, initial presentation
[2018-11-17 09:56] LABS: BASO % 0.6 % (0-2.0); EOS % 9.9 % (0-4.5); HEMATOCRIT 42.6 % (35.4-49); LYMPH % 21.2 % (8-40); MCH 29.9 pg (25.7-33.7); MCHC 32.9 g/dl (32.0-35.9); MEAN CELL VOLUME 90.6 fl (80-96); MEAN PLT VOLUME 9.6 fl (7.5-11.1); MONO % 8.4 % (3.8-10.2); NEUT % 59.9 % (42.8-82.8); PLATELET COUNT 161 K/MM3 (134-434); WHITE BLOOD COUNT 5.4 K/mm3 (4.0-10.0)
[2018-11-17 10:21] LABS: ALK PHOS 70 U/L (45-117); ANION GAP 4 MMOL/L (8-16); BILIRUBIN,TOTAL 0.5 mg/dL (0.2-1); BLOOD UREA NITROGEN 19 mg/dL (7-18); CALCIUM 9.2 mg/dL (8.5-10.1); CHLORIDE 104 mmol/L (98-107); CO2 30 mmol/L (21-32); GLUCOSE,RANDOM 107 mg/dL (74-106); N-TERMINAL BNP 54.5 pg/ml (5-125); POTASSIUM 4.6 mmol/L (3.5-5.1); SGOT/AST 16 U/L (15-37); SGPT/ALT 11 U/L (13-61); SODIUM 138 mmol/L (136-145); TOT PROT 7.3 g/dl (6.4-8.2)
--- NOTE | 2018-11-17 11:40 | EKG ---
Test Reason : Blood Pressure : / mmHG Vent. Rate : 049 BPM Atrial Rate : 049 BPM P-R Int : 162 ms QRS Dur : 108 ms QT Int : 428 ms P-R-T Axes : 031 023 034 degrees QTc Int : 386 ms SINUS BRADYCARDIA INCOMPLETE RIGHT BUNDLE BRANCH BLOCK BORDERLINE ECG WHEN COMPARED WITH ECG OF 23-AUG-2018 09:55, NO SIGNIFICANT CHANGE WAS FOUND Confirmed by WESLY GOETZ MD ([id number]) on 11/17/2018 11:40:27 AM Referred By: Confirmed By:WESLY GOETZ MD
--- NOTE | 2018-11-17 20:00 | HP ---
Admitting History and Physical - Primary Care Physician PCP: Sanjay Cherry - Admission Chief Complaint: Chest pain and dizziness History of Present Illness: Patient is a 68 y/o male with past medical history of palpitations and Parkinson 's Disease. Patient states he was at the gym using a stationary bike for about 5 minutes when he developed L sided chest pain with dizziness. Patient stopped using the bike and states the pain went away so patient went home and did not come to ED initially. During the night patient was unable to fall asleep and developed L sided chest pain again. Troponin neg. 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 Cardiovascular: Yes: HTN, Hyperlipdemia, Other (palpitations) Psych: Yes: Anxiety, Panic Endocrine: Yes: Other (HYPOGONADISM) - Past Surgical History Past Surgical History: Yes: None - Smoking History Smoking history: Never smoked Have you smoked in the past 12 months: No Aproximately how many cigarettes per day: 0 - Alcohol/Substance Use Hx Alcohol Use: No - Social History Usual Living Arrangement: Yes: With Spouse ADL: Independent (Independent in ADLs without AD) <Huong Baugh - Last Filed: 11/17/18 20:42> Home Medications <Huong Baugh - Last Filed: 11/17/18 20:42> <Sanjay Cherry - Last Filed: 11/18/18 08:45> - Allergies Allergies/Adverse Reactions: Allergies Allergy/AdvReac Type Severity Reaction Status Date / Time No Known Allergies Allergy Verified 08/21/18 08:40 - Home Medications Home Medications: Ambulatory Orders Polyethylene Glycol 3350 [Gavilax] 17 gm PO DAILY 08/21/18 Tamsulosin HCl [Flomax] 0.4 mg PO DAILY 08/21/18 Acetaminophen [Tylenol .Regular Strength -] 650 mg PO Q6H PRN tablet 08/23/18 [id number] [Stalevo 100 -] 1 tab PO TID #90 tablet 08/23/18 Carvedilol [Coreg -] 3.125 mg PO BID #60 tablet 08/23/18 Pramipexole Dihydrochloride [Mirapex -] 1 mg PO TID #90 tablet 08/23/18 clonazePAM [Klonopin -] 1 mg PO Q12H PRN #10 tablet MDD 2 08/23/18 Review of Systems - Review of Systems Constitutional: reports: No Symptoms Eyes: reports: No Symptoms HENT: reports: No Symptoms Neck: reports: No Symptoms Cardiovascular: reports: No Symptoms Respiratory: reports: No Symptoms Gastrointestinal: reports: No Symptoms Genitourinary: reports: No Symptoms Breasts: reports: No Symptoms Reported Musculoskeletal: reports: No Symptoms Integumentary: reports: No Symptoms Neurological: reports: No Symptoms Endocrine: reports: No Symptoms Hematology/Lymphatic: reports: No Symptoms Psychiatric: reports: No Symptoms <Huong Baugh - Last Filed: 11/17/18 20:42> Physical Examination Vital Signs: Vital Signs Temperature 98.2 F 11/17/18 18:50 Pulse Rate 49 L 11/17/18 18:50 Respiratory Rate 17 11/17/18 18:50 Blood Pressure 118/67 11/17/18 18:50 O2 Sat by Pulse Oximetry (%) 100 11/17/18 18:50 Constitutional: Yes: Well Nourished, No Distress, Calm Eyes: Yes: Conjunctiva Clear Neck: Yes: Supple Cardiovascular: Yes: Regular Rate and Rhythm Respiratory: Yes: Regular, CTA Bilaterally Gastrointestinal: Yes: Normal Bowel Sounds, Soft Musculoskeletal: Yes: WNL Extremities: Yes: WNL Edema: No Integumentary: Yes: WNL Neurological: Yes: Alert, Oriented Psychiatric: Yes: Alert, Oriented Labs: CBC, [facility] 11/17/18 09:24 11/17/18 09:36 <Huong Baugh - Last Filed: 11/17/18 20:42> Vital Signs: Vital Signs Temperature 98 F 11/18/18 06:00 Pulse Rate 50 L 11/18/18 06:00 Respiratory Rate 17 11/18/18 00:13 Blood Pressure 122/68 11/18/18 06:00 O2 Sat by Pulse Oximetry (%) 100 11/18/18 00:13 Labs: CBC, [facility] 11/18/18 06:30 11/18/18 06:30 <Sanjay Cherry - Last Filed: 11/18/18 08:45> Problem List - Problems (1) Anxiety Code(s): F41.9 - ANXIETY DISORDER, UNSPECIFIED (2) Chest pain Code(s): R07.9 - CHEST PAIN, UNSPECIFIED (3) Parkinson disease Code(s): G20 - PARKINSON'S DISEASE <Huong Baugh - Last Filed: 11/17/18 20:42> Assessment/Plan -cardiology consult -repeat troponin pending -admit for tele monitoring -nitro SL PRN -cont with coreg -dvt ppx with SCD -klonopin PRN for anxiety -cont with [id number] -fall precaution -low Na diet <Huong Baugh - Last Filed: 11/17/18 20:42> PATIENT SEEN AND EXAMINED I AGREE WITH ABOVE NOTE <Sanjay Cherry - Last Filed: 11/18/18 08:45>
[2018-11-17] MEDS ORDERED: NITROGLYCERIN SUBLINGUAL 1/150 0.4 MG TAB SL PRN (20:27)
[2018-11-17] MEDS: clonazePAM 0.5 MG TABLET PO PRN (21:39)
[2018-11-17] MEDS: CARVEDILOL 3.125 MG TABLET (FP) PO SCH ×2 (21:39→21:45)
[2018-11-17] MEDS: CARBIDOP 25MG/LEVODOPA 100MG/ENTACAPONE 200MG TABLET PO SCH (22:33)
[2018-11-17] MEDS: PRAMIPEXOLE DIHYDROCHLORIDE 1 MG TABLET PO SCH (22:33)
[2018-11-17 23:16] VITALS: BMI 23.6
[2018-11-18] MEDS ORDERED: PT OWN MED DRAWER 7, Y5N ONE ×4 (00:52→21:46)
[2018-11-18] MEDS: PRAMIPEXOLE DIHYDROCHLORIDE 1 MG TABLET PO SCH ×3 (06:38→22:24)
[2018-11-18] MEDS: CARBIDOP 25MG/LEVODOPA 100MG/ENTACAPONE 200MG TABLET PO SCH ×3 (06:39→22:24)
[2018-11-18 07:53] LABS: HEMATOCRIT 38.8 % (35.4-49); HEMOGLOBIN 12.8 GM/dL (11.7-16.9); MCH 30.1 pg (25.7-33.7); MEAN PLT VOLUME 9.8 fl (7.5-11.1); PLATELET COUNT 145 K/MM3 (134-434); RBC 4.27 M/mm3 (4.00-5.60); RDW 13.6 % (11.9-15.9); WHITE BLOOD COUNT 5.7 K/mm3 (4.0-10.0)
[2018-11-18 08:27] LABS: ALBUMIN 3.5 g/dl (3.4-5.0); ALK PHOS 59 U/L (45-117); ANION GAP 6 MMOL/L (8-16); BILIRUBIN,TOTAL 0.5 mg/dL (0.2-1); BLOOD UREA NITROGEN 26 mg/dL (7-18); CALCIUM 8.5 mg/dL (8.5-10.1); CHLORIDE 103 mmol/L (98-107); CO2 27 mmol/L (21-32); CREATININE 0.8 mg/dL (0.55-1.3); GLUCOSE,RANDOM 96 mg/dL (74-106); POTASSIUM 3.9 mmol/L (3.5-5.1); SGOT/AST 17 U/L (15-37); SGPT/ALT 22 U/L (13-61); SODIUM 137 mmol/L (136-145); TOT PROT 6.3 g/dl (6.4-8.2)
[2018-11-18] MEDS: POLYETHYLENE GLYCOL 3350 119 GM BTL PO SCH (09:21)
[2018-11-18] MEDS: TAMSULOSIN HCL 0.4 MG CAP PO SCH (09:21)
[2018-11-18] MEDS: CARVEDILOL 3.125 MG TABLET (FP) PO SCH ×2 (09:23→22:23)
--- NOTE | 2018-11-18 12:06 | PN ---
Progress Note, Physician History of Present Illness: 68 year old male with a PMH of palpitations (--), Parkinson's Disease -- presents to our ED c/o chest tightness. Chest tightness has been occurring for 2-3 weeks and is intermittent, localized to his L clavicle and lasts for 10 minutes. Notes that at baseline he is active and exercises on a stationary bike daily, however yesterday pain started and was more intense and longer duration This am denies any chest pain - Current Medication List Current Medications: Active Medications Carbidopa/Levodopa/Entacapone (Stalevo 100 -) 1 tab PO TID [facility] Last Admin: 11/18/18 06:39 Dose: 1 tab Carvedilol (Coreg -) 3.125 mg PO BID [facility] Last Admin: 11/18/18 09:23 Dose: 3.125 mg Clonazepam (Klonopin -) 0.5 mg PO BID PRN PRN Reason: ANXIETY Last Admin: 11/17/18 21:39 Dose: 0.5 mg Nitroglycerin (Nitrostat -) 0.4 mg SL Q5M PRN PRN Reason: FOR CHEST PAIN Polyethylene Glycol (Miralax (For Daily Use) -) 17 gm PO DAILY [facility] Last Admin: 11/18/18 09:21 Dose: 17 gm Pramipexole Dihydrochloride (Mirapex -) 1 mg PO TID [facility] Last Admin: 11/18/18 06:38 Dose: 1 mg Tamsulosin HCl (Flomax -) 0.4 mg PO DAILY@0830 [facility] Last Admin: 11/18/18 09:21 Dose: 0.4 mg - Objective Vital Signs: Vital Signs Temperature 98.2 F 11/18/18 10:00 Pulse Rate 62 11/18/18 10:00 Respiratory Rate 17 11/18/18 10:00 Blood Pressure 103/70 11/18/18 10:00 O2 Sat by Pulse Oximetry (%) 100 11/18/18 08:00 Cardiovascular: Yes: Regular Rate and Rhythm Respiratory: Yes: Regular, CTA Bilaterally Gastrointestinal: Yes: Normal Bowel Sounds, Soft Edema: No Labs: CBC, BMP 11/18/18 06:30 11/18/18 06:30 Problem List - Problems (1) Chest pain Assessment/Plan: -CE negative X 2 -cardiology consult -Obtain outpatient work up Code(s): R07.9 - CHEST PAIN, UNSPECIFIED (2) Anxiety Assessment/Plan: -same meds Code(s): F41.9 - ANXIETY DISORDER, UNSPECIFIED (3) Parkinson disease Assessment/Plan: Resume meds Code(s): G20 - PARKINSON'S DISEASE
--- NOTE | 2018-11-18 15:50 | CON.CARD ---
Consult Consult Specialty:: cardiology Referred by:: dr. hawkins/charlene Reason for Consultation:: chest pain - History of Present Illness Chief Complaint: chest pain History of Present Illness: 68 year old man with a PMHx of HTN, Parkinson disease, palpitations, anxiety, panic attack, and HLD admitted 08/21/2018 with 10 minutes of palpitation with sensation of rapid heart beats. seen by Dr. Tamar Fofana (sweatband separator at [facility]) for palpitation. Holter monitor 07/22/2018 showed sinus bradycardia with average HR of 58 BPM (38-108 bpm). He was unable to tolerate metoprolol. Now admitted with an episode of chest pain that occurred while doing a stationary bicycle 2 days prior to admission. pt seen and examined today in [facility]. states he has had no further chest pain during admission. states he wants to go home. 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 Cardio/Vascular: Yes: HTN, Hyperlipdemia, Other (palpitations) Psych: Yes: Anxiety, Panic Endocrine: Yes: Other (HYPOGONADISM) - Past Surgical History Past Surgical History: Yes: None - Alcohol/Substance Use Hx Alcohol Use: No - Smoking History Smoking history: Unknown if ever smoked Have you smoked in the past 12 months: No Aproximately how many cigarettes per day: 0 - Social History Usual Living Arrangement: With Spouse (lives with in house with 3 steps to enter then 1st floor set-up) ADL: Independent (Independent in ADLs without AD) Home Medications - Allergies Allergies/Adverse Reactions: Allergies Allergy/AdvReac Type Severity Reaction Status Date / Time No Known Allergies Allergy Verified 08/21/18 08:40 - Home Medications Home Medications: Ambulatory Orders Polyethylene Glycol 3350 [Gavilax] 17 gm PO DAILY 08/21/18 Tamsulosin HCl [Flomax] 0.4 mg PO DAILY 08/21/18 Acetaminophen [Tylenol .Regular Strength -] 650 mg PO Q6H PRN tablet 08/23/18 C-Dopa25/[id number] [Stalevo 100 -] 1 tab PO TID #90 tablet 08/23/18 Carvedilol [Coreg -] 3.125 mg PO BID #60 tablet 08/23/18 Pramipexole Dihydrochloride [Mirapex -] 1 mg PO TID #90 tablet 08/23/18 clonazePAM [Klonopin -] 1 mg PO Q12H PRN #10 tablet MDD 2 08/23/18 Aspirin 81 mg PO DAILY 11/18/18 Family Disease History - Family Disease History Family History: Denies Review of Systems - Review of Systems Constitutional: denies: No Symptoms, Chills, Diaphoresis, Fever, Lethargy, Loss of Appetite, Malaise, Night Sweats, Unintentional Wgt. Loss, Weakness, Other Eyes: denies: No Symptoms, Blind Spots, Blurred Vision, Double Vision, Eye Pain , Floaters, Photophobia, Recent Change in Vision, Other HENT: denies: No Symptoms, Difficult Swallowing, Ear Discharge, Ear Pain, Epistaxis, Gingival Bleeding, Hearing Loss, Mouth Swelling, Nasal Congestion, Ocular Prosthesis, Throat Pain, Toothache, Ringing in Ears, Other Neck: denies: No Symptoms, Decreased ROM, Lumps, Pain on Movement, Stiffness, Swollen Glands, Tenderness, Other Cardiovascular: reports: Chest Pain. denies: No Symptoms, Edema, Palpitations, Shortness of Breath, Other Respiratory: denies: No Symptoms, Cough, Exercise Intolerance, Hemoptysis, Orthopnea, PND, Snoring, SOB, SOB on Exertion, Wheezing, Other Gastrointestinal: denies: No Symptoms, Abdominal Pain, Bloating, Constipation, Diarrhea, Dysphagia, Indigestion, Melena, Nausea, Rectal Bleeding, Vomiting, Vomiting Blood, Other Genitourinary: denies: No Symptoms, Burning, Discharge, Dysuria, Flank Pain, Frequency, Hematuria, Incontinence, Lesions, Menses, Pain, Testicular Mass, Testicular Pain, Testicular Swelling, Urgency, Vaginal Bleeding, Other Breasts: denies: No Symptoms Reported, See HPI, Breast Implants, Discharge from Nipple, Lumps, Pain, Skin Changes, Other Musculoskeletal: denies: No Symptoms, Back Pain, Crepitus, Decreased ROM, Extremity Pain, Joint Pain, Joint Swelling, Muscle Pain, Muscle Cramps, Muscle Weakness, Other Integumentary: denies: No Symptoms, Blister, Bruising, Change in Color, Eczema, Erythema, Incision, Lesions, Lump, Pallor, Pruritis, Rash, Wound, Other Neurological: denies: No Symptoms, Change in LOC, Change in Speech, Confusion, Dizziness, Headache, Incoordination, Numbness, Parasthesia, Pre-Existing Deficit , Seizure, Syncope, Tremors, Unsteady Gait, Weakness, Other Endocrine: denies: No Symptoms, Excessive Sweating, Flushing, Increased Hunger, Increased Thirst, Intolerance to Cold, Intolerance to Heat, Unexplained Weight Gain, Unexplained Weight Loss, Other Hematology/Lymphatic: denies: No Symptoms, Easily Bruised, Excessive Bleeding, Swollen Glands, Other Psychiatric: denies: No Symptoms, Altered Sleep Pattern, Anxiety, Depression, Hallucinations, Panic, Paranoia, Suicidal, Other Vital Signs: Vital Signs Temperature 98.0 F 11/18/18 13:45 Pulse Rate 60 11/18/18 13:45 Respiratory Rate 20 11/18/18 13:45 Blood Pressure 116/71 11/18/18 13:45 O2 Sat by Pulse Oximetry (%) 100 11/18/18 08:00 Constitutional: Yes: No Distress, Calm Eyes: Yes: Conjunctiva Clear, EOM Intact HENT: Yes: Atraumatic, Normocephalic Neck: Yes: Supple, Trachea Midline Respiratory: Yes: Regular, CTA Bilaterally. No: Rales, Rhonchi, Wheezes Gastrointestinal: Yes: Normal Bowel Sounds, Soft. No: Distention, Tenderness Cardiovascular: Yes: Regular Rate and Rhythm. No: Bradycardia, Tachycardia, Pulse Irregular, Gallop, Rub, Varicosities JVD: No Carotid Bruit: No PMI: Non-Displaced Heart Sounds: Yes: S1, S2. No: Split S2, S3, S4, Clicks, Gallop, Rub, Bruit Murmur: No: Systolic Murmur, Diastolic Murmur Musculoskeletal: Yes: WNL Extremities: Yes: WNL Edema: No Peripheral Pulses WNL: Yes Peripheral Pulses: 2+ Left Doralis Pedis, 2+ Right Dorsalis Pedis Neurological: Yes: Alert, Oriented, Pre-Existing Deficit Psychiatric: Yes: Alert, Oriented - Other Data Labs, Other Data: CBC, BMP 11/18/18 06:30 11/18/18 06:30 Troponin, BNP 11/17/18 11/18/18 19:20 13:15 Troponin I < 0.02 < 0.02 Troponin, BNP 11/17/18 11/18/18 19:20 13:15 Troponin I < 0.02 < 0.02 ekg-sb 49bpm, incomplete rbbb Echo: Report Reviewed Imaging - Results Chest X-ray: Report Reviewed, Image Reviewed EKG: Report Reviewed, Image Reviewed Other: Report Reviewed, Image Reviewed (tele-sb) Assessment/Plan 68 year old man with a PMHx of HTN, Parkinson disease, palpitations, anxiety, panic attack, and HLD admitted 08/21/2018 with 10 minutes of palpitation with sensation of rapid heart beats. seen by Dr. Tamar Fofana (sweatband separator at [facility]) for palpitation. Holter monitor 07/22/2018 showed sinus bradycardia with average HR of 58 BPM (38-108 bpm). He was unable to tolerate metoprolol. Now admitted with an episode of chest pain that occurred while doing a stationary bicycle 2 days prior to admission. pt seen and examined today in [facility]. states he has had no further chest pain during admission. states he wants to go home. chest pain -unlikely acs -no ischemia on ekg -cardiac enzymes wnl -no further chest pain since admission -recc echo and stress test if not done recently -would be acceptable to have above tests as outpatient if discharged over the weekend otherwise would plan for tuesday H/o palpitation-uncertain etiology -frequent PVCs seen on tele in the past -cont Carvedilol 3.125 mg BID to suppress PVCs -Close out-pt cardiac follow up with Dr. Fofana.
[2018-11-18] MEDS: clonazePAM 0.5 MG TABLET PO PRN (16:10)
[2018-11-18] MEDS ORDERED: clonazePAM 0.5 MG TABLET PO ONE (23:26)
[2018-11-19] MEDS: CARBIDOP 25MG/LEVODOPA 100MG/ENTACAPONE 200MG TABLET PO SCH ×3 (06:26→21:57)
[2018-11-19] MEDS: PRAMIPEXOLE DIHYDROCHLORIDE 1 MG TABLET PO SCH ×3 (06:26→21:57)
[2018-11-19] MEDS: ASPIRIN 81 MG CHEWABLE TABLETS PO SCH (09:00)
[2018-11-19] MEDS: CARVEDILOL 3.125 MG TABLET (FP) PO SCH ×2 (09:00→22:25)
[2018-11-19] MEDS: clonazePAM 0.5 MG TABLET PO PRN ×2 (09:00→18:10)
[2018-11-19] MEDS: TAMSULOSIN HCL 0.4 MG CAP PO SCH (09:00)
[2018-11-19] MEDS: POLYETHYLENE GLYCOL 3350 119 GM BTL PO SCH (10:17)
--- NOTE | 2018-11-19 11:37 | PN ---
Progress Note, Physician - Current Medication List Current Medications: Active Medications Aspirin (Asa -) 81 mg PO DAILY [facility] Last Admin: 11/19/18 09:00 Dose: 81 mg Carbidopa/Levodopa/Entacapone (Stalevo 100 -) 1 tab PO TID [facility] Last Admin: 11/19/18 06:26 Dose: 1 tab Carvedilol (Coreg -) 3.125 mg PO BID [facility] Last Admin: 11/19/18 09:00 Dose: 3.125 mg Clonazepam (Klonopin -) 0.5 mg PO BID PRN PRN Reason: ANXIETY Last Admin: 11/19/18 09:00 Dose: 0.5 mg Nitroglycerin (Nitrostat -) 0.4 mg SL Q5M PRN PRN Reason: FOR CHEST PAIN Polyethylene Glycol (Miralax (For Daily Use) -) 17 gm PO DAILY [facility] Last Admin: 11/19/18 10:17 Dose: 17 gm Pramipexole Dihydrochloride (Mirapex -) 1 mg PO TID [facility] Last Admin: 11/19/18 06:26 Dose: 1 mg Tamsulosin HCl (Flomax -) 0.4 mg PO DAILY@0830 [facility] Last Admin: 11/19/18 09:00 Dose: 0.4 mg - Objective Vital Signs: Vital Signs Temperature 98.3 F 11/19/18 09:59 Pulse Rate 63 11/19/18 09:59 Respiratory Rate 20 11/19/18 09:59 Blood Pressure 122/74 11/19/18 09:59 O2 Sat by Pulse Oximetry (%) 99 11/19/18 08:00 Cardiovascular: Yes: Regular Rate and Rhythm Respiratory: Yes: Regular, CTA Bilaterally Gastrointestinal: Yes: Normal Bowel Sounds, Soft Labs: CBC, BMP 11/18/18 06:30 11/18/18 06:30 Problem List - Problems (1) Chest pain Assessment/Plan: -CE Now -cardiology consult noted -stress test and echo Code(s): R07.9 - CHEST PAIN, UNSPECIFIED (2) Anxiety Assessment/Plan: -same meds Code(s): F41.9 - ANXIETY DISORDER, UNSPECIFIED (3) Parkinson disease Assessment/Plan: Resume meds Code(s): G20 - PARKINSON'S DISEASE
[2018-11-19] MEDS ORDERED: PT OWN MED DRAWER 7, Y5N ONE ×2 (13:20→21:07)
--- NOTE | 2018-11-19 15:43 | PN ---
Progress Note, Physician History of Present Illness: seen and examined today in nad. states he had mild chest pain again today. - Current Medication List Current Medications: Active Medications Aspirin (Asa -) 81 mg PO DAILY [facility] Last Admin: 11/19/18 09:00 Dose: 81 mg Carbidopa/Levodopa/Entacapone (Stalevo 100 -) 1 tab PO TID [facility] Last Admin: 11/19/18 13:12 Dose: 1 tab Carvedilol (Coreg -) 3.125 mg PO BID [facility] Last Admin: 11/19/18 09:00 Dose: 3.125 mg Clonazepam (Klonopin -) 0.5 mg PO BID PRN PRN Reason: ANXIETY Last Admin: 11/19/18 09:00 Dose: 0.5 mg Nitroglycerin (Nitrostat -) 0.4 mg SL Q5M PRN PRN Reason: FOR CHEST PAIN Polyethylene Glycol (Miralax (For Daily Use) -) 17 gm PO DAILY [facility] Last Admin: 11/19/18 10:17 Dose: 17 gm Pramipexole Dihydrochloride (Mirapex -) 1 mg PO TID [facility] Last Admin: 11/19/18 13:12 Dose: 1 mg Tamsulosin HCl (Flomax -) 0.4 mg PO DAILY@0830 [facility] Last Admin: 11/19/18 09:00 Dose: 0.4 mg - Objective Vital Signs: Vital Signs Temperature 98.5 F 11/19/18 14:44 Pulse Rate 54 L 11/19/18 14:44 Respiratory Rate 18 11/19/18 14:44 Blood Pressure 114/73 11/19/18 14:44 O2 Sat by Pulse Oximetry (%) 99 11/19/18 08:00 Constitutional: Yes: No Distress, Calm Eyes: Yes: Conjunctiva Clear, EOM Intact, PERRL HENT: Yes: Atraumatic, Normocephalic Neck: Yes: Supple, Trachea Midline Cardiovascular: Yes: Regular Rate and Rhythm, S1, S2. No: Bradycardia, Tachycardia, Pulse Irregular, Bruit, JVD, Gallop, Murmur, Rub, S3, S4, Varicosities Respiratory: Yes: Regular, CTA Bilaterally. No: Rales, Rhonchi, Wheezes Gastrointestinal: Yes: Normal Bowel Sounds, Soft. No: Distention, Tenderness Musculoskeletal: Yes: WNL Extremities: Yes: WNL Edema: No Peripheral Pulses WNL: Yes Peripheral Pulses: Left Doralis Pedis: 2+, Right Dorsalis Pedis: 2+ Neurological: Yes: Alert, Oriented Psychiatric: Yes: Alert, Oriented Labs: CBC, BMP 11/18/18 06:30 11/18/18 06:30 - ....Imaging Chest X-ray: Report Reviewed, Image Reviewed EKG: Report Reviewed, Image Reviewed Other: Report Reviewed, Image Reviewed (tele-sb, nsr, no sig arrhythmias) Assessment/Plan 68 year old man with a PMHx of HTN, Parkinson disease, palpitations, anxiety, panic attack, and HLD admitted 08/21/2018 with 10 minutes of palpitation with sensation of rapid heart beats. seen by Dr. Tamar Fofana (tire buffer at [facility]) for palpitation. Holter monitor 07/22/2018 showed sinus bradycardia with average HR of 58 BPM (38-108 bpm). He was unable to tolerate metoprolol. Now admitted with an episode of chest pain that occurred while doing a stationary bicycle 2 days prior to admission. chest pain -unlikely acs -no ischemia on ekg -cardiac enzymes wnl -no further chest pain since admission -planned for echo and stress test tomorrow -npo after midnight tonight for stress test tomorrow -if no sig ischemia on stress test and no sig abnl on echo tomorrow pt would be acceptable for discharge with outpatient fup H/o palpitation-uncertain etiology -frequent PVCs seen on tele in the past -cont Carvedilol 3.125 mg BID to suppress PVCs -Close out-pt cardiac follow up with Dr. Fofana. Bradycardia-mild sinus maulik, asymptomatic -on carvedilol for pvc suppression -cont for now
--- NOTE | 2018-11-19 22:28 | EKG ---
Test Reason : Blood Pressure : / mmHG Vent. Rate : 053 BPM Atrial Rate : 053 BPM P-R Int : 158 ms QRS Dur : 102 ms QT Int : 414 ms P-R-T Axes : 026 029 027 degrees QTc Int : 388 ms SINUS BRADYCARDIA OTHERWISE NORMAL ECG WHEN COMPARED WITH ECG OF 17-NOV-2018 08:31, NO SIGNIFICANT CHANGE WAS FOUND Confirmed by WESLY GOETZ MD ([id number]) on 11/19/2018 10:27:46 PM Referred By: Francoise CORTES Confirmed By:WESLY GOETZ MD
[2018-11-20] MEDS: clonazePAM 0.5 MG TABLET PO PRN ×2 (00:35→12:56)
[2018-11-20] MEDS: PRAMIPEXOLE DIHYDROCHLORIDE 1 MG TABLET PO SCH ×2 (05:20→14:17)
[2018-11-20] MEDS: CARBIDOP 25MG/LEVODOPA 100MG/ENTACAPONE 200MG TABLET PO SCH ×2 (05:21→14:17)
[2018-11-20] MEDS ORDERED: PT OWN MED DRAWER 7, Y5N ONE ×2 (09:04→14:12)
[2018-11-20] MEDS ORDERED: REGADENOSON 0.4 MG/5 ML PRE-FILLED SYRINGE IVPUSH ONE ×2 (09:30→10:18)
--- NOTE | 2018-11-20 10:32 | ECHO ---
Name: MEGHAN JOY Exam:Adult Echocardiogram Study Date: 11/20/2018 07:49 AM Age: 68 yrs Reason For Study: Chest pain Height: 69 in Weight: 160 lb BSA: 1.9 m2 MMode/2D Measurements & Calculations IVSd: 0.89 cm Ao root diam: 2.7 cm LVIDd: 5.7 cm LA dimension: 3.8 cm LVIDs: 3.6 cm LVPWd: 1.0 cm EDV(Teich): 157.0 ml LVOT diam: 1.9 cm ESV(Teich): 52.8 ml TAPSE: 3.0 cm RV S Ra: 13.6 cm/sec Doppler Measurements & Calculations MV E max ra: 66.1 cm/sec Med Peak E' Ra: 4.9 cm/sec MV A max ra: 70.4 cm/sec Med E/e': 13.5 MV E/A: 0.94 Lat Peak E' Ar: 9.5 cm/sec Lat E/e': 7.0 Procedure A complete two-dimensional transthoracic echocardiogram was performed (2D, M-mode, Doppler and color flow Doppler). Left Ventricle The left ventricle is normal in size. Left ventricular systolic function is normal. Ejection Fraction = 60- 65%. Grade I diastolic dysfunction, (abnormal relaxation pattern). Ratio E/E'= 14. No regional wall m otion abnormalities noted. Right Ventricle The right ventricle is normal size. The right ventricular systolic function is normal. RV systolic TD I is 14 cm/s. Atria The left atrial size is normal. Right atrial size is normal. Mitral Valve There is mild mitral annular calcification. There is mild mitral regurgitation. Tricuspid Valve The tricuspid valve is normal in structure and function. There is mild tricuspid regurgitation. Aortic Valve The aortic valve is normal in structure and function. No aortic regurgitation is present. Pulmonic Valve The pulmonic valve is not well visualized. Trace to mild pulmonic valvular regurgitation. Great Vessels The aortic root is normal size. Pericardium/Pleura There is no pericardial effusion. Interpretation Summary RV systolic TDI is 14 cm/s The left ventricle is normal in size. Left ventricular systolic function is normal. No regional wall motion abnormalities noted. Ejection Fraction = 60-65%. Grade I diastolic dysfunction, (abnormal relaxation pattern). Ratio E/E'= 14 c/w normal filling pressure The right ventricular systolic function is normal. The left atrial size is normal. Right atrial size is normal. There is mild tricuspid regurgitation. Trace to mild pulmonic valvular regurgitation. There is no pericardial effusion. Previous study is not available for comparison Ward Moy MD 11/20/2018 10:31 AM
[2018-11-20 12:41] VITALS: BP 127/87; PULSE 76; TEMP 98
[2018-11-20] MEDS: CARVEDILOL 3.125 MG TABLET (FP) PO SCH (12:56)
[2018-11-20] MEDS: ASPIRIN 81 MG CHEWABLE TABLETS PO SCH (12:56)
[2018-11-20] MEDS: TAMSULOSIN HCL 0.4 MG CAP PO SCH (12:56)
--- NOTE | 2018-11-20 14:47 | PN ---
Progress Note, Physician Chief Complaint: patient seen back form stress test - Current Medication List Current Medications: Active Medications Aspirin (Asa -) 81 mg PO DAILY [facility] Last Admin: 11/20/18 12:56 Dose: 81 mg Carbidopa/Levodopa/Entacapone (Stalevo 100 -) 1 tab PO TID [facility] Last Admin: 11/20/18 14:17 Dose: 1 tab Carvedilol (Coreg -) 3.125 mg PO BID [facility] Last Admin: 11/20/18 12:56 Dose: 3.125 mg Clonazepam (Klonopin -) 0.5 mg PO BID PRN PRN Reason: ANXIETY Last Admin: 11/20/18 12:56 Dose: 0.5 mg Nitroglycerin (Nitrostat -) 0.4 mg SL Q5M PRN PRN Reason: FOR CHEST PAIN Polyethylene Glycol (Miralax (For Daily Use) -) 17 gm PO DAILY [facility] Last Admin: 11/19/18 10:17 Dose: 17 gm Pramipexole Dihydrochloride (Mirapex -) 1 mg PO TID [facility] Last Admin: 11/20/18 14:17 Dose: 1 mg Tamsulosin HCl (Flomax -) 0.4 mg PO DAILY@0830 [facility] Last Admin: 11/20/18 12:56 Dose: 0.4 mg - Objective Vital Signs: Vital Signs Temperature 98 F 11/20/18 12:30 Pulse Rate 76 11/20/18 12:30 Respiratory Rate 20 11/20/18 12:30 Blood Pressure 127/87 11/20/18 12:30 O2 Sat by Pulse Oximetry (%) 99 11/20/18 08:00 Constitutional: Yes: Calm Cardiovascular: Yes: Regular Rate and Rhythm, S1, S2 Respiratory: Yes: CTA Bilaterally Gastrointestinal: Yes: Normal Bowel Sounds, Soft Edema: No Neurological: Yes: Alert, Oriented Labs: CBC, BMP 11/18/18 06:30 11/18/18 06:30 Problem List - Problems (1) Chest tightness Assessment/Plan: small zone of inferior base defect from base to apex on nuclear scan will have cardiology FU prior to dc on coreg and aspirin Code(s): R07.89 - OTHER CHEST PAIN
--- NOTE | 2018-11-20 15:39 | PN ---
Progress Note, Physician Chief Complaint: Chest pain Now comfortable History of Present Illness: This is a 68 year old man with a PMHx of HTN, Parkinson disease, palpitations, anxiety, panic attack, and HLD. He was dmitted 08/21/2018 with 10 minutes of palpitation with sensation of rapid heart beats. seen by Dr. Tamar Fofana ( material planner at [facility]) for palpitation. Holter monitor 07/22/2018 showed sinus bradycardia with average HR of 58 BPM (38-108 bpm). He was unable to tolerate metoprolol. He was admitted with an episode of chest pain that occurred while doing a stationary bicycle 2 days prior to admission. Lexiscan performed on 11/20/18 showed normal perfusion with diaphragmatic attenuation. EF 75%. Echocardiogram was unremarkable. EKG non acute. Trops neg. BNP NL. === - Current Medication List Current Medications: Active Medications Aspirin (Asa -) 81 mg PO DAILY [facility] Last Admin: 11/20/18 12:56 Dose: 81 mg Carbidopa/Levodopa/Entacapone (Stalevo 100 -) 1 tab PO TID [facility] Last Admin: 11/20/18 14:17 Dose: 1 tab Carvedilol (Coreg -) 3.125 mg PO BID [facility] Last Admin: 11/20/18 12:56 Dose: 3.125 mg Clonazepam (Klonopin -) 0.5 mg PO BID PRN PRN Reason: ANXIETY Last Admin: 11/20/18 12:56 Dose: 0.5 mg Nitroglycerin (Nitrostat -) 0.4 mg SL Q5M PRN PRN Reason: FOR CHEST PAIN Polyethylene Glycol (Miralax (For Daily Use) -) 17 gm PO DAILY [facility] Last Admin: 11/19/18 10:17 Dose: 17 gm Pramipexole Dihydrochloride (Mirapex -) 1 mg PO TID [facility] Last Admin: 11/20/18 14:17 Dose: 1 mg Tamsulosin HCl (Flomax -) 0.4 mg PO DAILY@0830 [facility] Last Admin: 11/20/18 12:56 Dose: 0.4 mg - Objective Vital Signs: Vital Signs Temperature 98 F 11/20/18 12:30 Pulse Rate 76 11/20/18 12:30 Respiratory Rate 20 11/20/18 12:30 Blood Pressure 127/87 11/20/18 12:30 O2 Sat by Pulse Oximetry (%) 99 11/20/18 08:00 Constitutional: Yes: Well Nourished Cardiovascular: Yes: Regular Rate and Rhythm Respiratory: Yes: CTA Bilaterally Gastrointestinal: Yes: Normal Bowel Sounds Edema: No Neurological: Yes: Alert, Oriented (Signs of Parkinson's) Labs: CBC, BMP 11/18/18 06:30 11/18/18 06:30 Assessment/Plan 68 year old man with a PMHx of HTN, Parkinson disease, palpitations, anxiety, panic attack, and HLD. He was dmitted 08/21/2018 with 10 minutes of palpitation with sensation of rapid heart beats. seen by Dr. Tamra Fofana (material planner at [facility]) for palpitation. Holter monitor 07/22/2018 showed sinus bradycardia with average HR of 58 BPM (38-108 bpm). He was unable to tolerate metoprolol. He was admitted with an episode of chest pain that occurred while doing a stationary bicycle 2 days prior to admission. Lexiscan performed on 11/20 showed normal perfusion with diaphragmatic attenuation. EF 75%. Echocardiogram was unremarkable. EKG non acute. Trops neg. BNP NL. Chest pain Non invasive testing was negative Most likely musculosketal Would DC COREG given bradycardia. OP Follow up.
--- NOTE | 2018-11-20 16:59 | DS ---
Physical Examination Vital Signs: Vital Signs Temperature 98 F 11/20/18 12:30 Pulse Rate 76 11/20/18 12:30 Respiratory Rate 20 11/20/18 12:30 Blood Pressure 127/87 11/20/18 12:30 O2 Sat by Pulse Oximetry (%) 99 11/20/18 08:00 Constitutional: Yes: Calm Cardiovascular: Yes: Regular Rate and Rhythm, S1, S2 Respiratory: Yes: CTA Bilaterally Gastrointestinal: Yes: Normal Bowel Sounds, Soft Edema: No Neurological: Yes: Alert, Oriented Labs: CBC, BMP 11/18/18 06:30 11/18/18 06:30 Discharge Summary Reason For Visit: SENSATION OF CHEST TIGHTNESS Current Active Problems Chest tightness (Acute) Hospital Course: - Primary Care Physician PCP: Sanjay Cherry - Admission Chief Complaint: Chest pain and dizziness History of Present Illness: Patient is a 68 y/o male with past medical history of palpitations and Parkinson 's Disease. Patient states he was at the gym using a stationary bike for about 5 minutes when he developed L sided chest pain with dizziness. Patient stopped using the bike and states the pain went away so patient went home and did not come to ED initially. During the night patient was unable to fall asleep and developed L sided chest pain again. Troponin neg. 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 Cardiovascular: Yes: HTN, Hyperlipdemia, Other (palpitations) patinet on telemtry floor had stress test negative stop coreg given bradycardia follow up with PMD Condition: Fair - Instructions Referrals: Sanjay Cherry MD [Primary Care Provider] - 1 Week Disposition: HOME - Home Medications Comprehensive Discharge Medication List: Ambulatory Orders Polyethylene Glycol 3350 [Gavilax] 17 gm PO DAILY 08/21/18 Tamsulosin HCl [Flomax] 0.4 mg PO DAILY 08/21/18 Acetaminophen [Tylenol .Regular Strength -] 650 mg PO Q6H PRN tablet 08/23/18 [id number] [Stalevo 100 -] 1 tab PO TID #90 tablet 08/23/18 Carvedilol [Coreg -] 3.125 mg PO BID #60 tablet 08/23/18 Pramipexole Dihydrochloride [Mirapex -] 1 mg PO TID #90 tablet 08/23/18 Aspirin 81 mg PO DAILY 11/18/18 Aspirin [ASA -] 81 mg PO DAILY tab.chew 11/20/18 [id number] [Stalevo 100 -] 1 tab PO TID tablet 11/20/18 Carvedilol [Coreg -] 3.125 mg PO BID tablet 11/20/18 Polyethylene Glycol 3350 [Miralax 119 gm Btl -] 17 gm PO DAILY bottle 11/20/18 Pramipexole Dihydrochloride [Mirapex -] 1 mg PO TID tablet 11/20/18 Tamsulosin HCl [Flomax -] 0.4 mg PO DAILY@0830 cap.er.24h 11/20/18 clonazePAM [Klonopin -] 0.5 mg PO BID PRN #10 tablet MDD 2 11/20/18 clonazePAM [Klonopin -] 1 mg PO Q12H PRN #10 tablet MDD 2 11/20/18
[2018-11-20] MEDS: POLYETHYLENE GLYCOL 3350 119 GM BTL PO SCH (17:05)
== END 2018-11-20 18:37 | disposition home or self-care (01) ==
LOC: JER 08:19 → JERBED 11:00 → J4W 20:19
PROVIDERS: ADMIT Family Medicine; ATTEND Family Medicine
PROC: 3E033GC Introduction of Other Therapeutic Substance into Peripheral Vein, Percutaneous Approach (ICD-10-PCS; principal; 2018-11-17)
DX: R07.89 Other chest pain (principal); I10 Essential (primary) hypertension; E78.5 Hyperlipidemia, unspecified; J44.9 Chronic obstructive pulmonary disease, unspecified; G20 Parkinson's disease; F41.9 Anxiety disorder, unspecified; F41.0 Panic disorder [episodic paroxysmal anxiety]; Z86.79 Personal history of other diseases of the circulatory system; Z79.82 Long term (current) use of aspirin; R00.1 Bradycardia, unspecified
CPT/HCPCS: 36415; 71046-TC-FY; 78452-TC; 80053; 82550; 83880; 84484; 85025; 85027; 93005; 93010; 93017; 93306-TC; 96374; 99284-25; A9502; G0378; J2785

== ENCOUNTER 2020-11-10 12:41 | Emergency (ER) | payer MEDICARE, OTHER ==
[2020-11-10 12:49] VITALS: BMI 23.6
[2020-11-10 14:33] LABS: BASO % 0.4 % (0-2.0); EOS % 6.5 % (0-4.5); HEMATOCRIT 41.1 % (35.4-49); LYMPH % 15.9 % (8-40); MCH 31.1 pg (25.7-33.7); MEAN CELL VOLUME 91.3 fl (80-96); MEAN PLT VOLUME 9.3 fl (7.5-11.1); MONO % 5.8 % (3.8-10.2); NEUT % 71.4 % (42.8-82.8); PLATELET COUNT 144 K/MM3 (134-434); RDW 13.3 % (11.9-15.9); WHITE BLOOD COUNT 7.4 K/mm3 (4.0-10.0)
[2020-11-10 14:50] LABS: CHLORIDE 104 mmol/L (98-107); POTASSIUM 4.5 mmol/L (3.5-5.1); SODIUM 139 mmol/L (136-145)
[2020-11-10 14:52] LABS: ANION GAP 5 MMOL/L (8-16); BLOOD UREA NITROGEN 22.6 mg/dL (7-18); CO2 31 mmol/L (21-32)
[2020-11-10 14:53] LABS: ALBUMIN 4.1 g/dl (3.4-5.0); GLUCOSE,RANDOM 95 mg/dL (74-106)
[2020-11-10 14:55] LABS: SGPT/ALT 9 U/L (13-61)
[2020-11-10 14:56] LABS: CREATININE 0.9 mg/dL (0.55-1.3); SGOT/AST 15 U/L (15-37)
[2020-11-10 14:57] LABS: BILIRUBIN,TOTAL 0.4 mg/dL (0.2-1); TOT PROT 7.4 g/dl (6.4-8.2)
[2020-11-10 14:58] LABS: ALK PHOS 85 U/L (45-117)
[2020-11-10 18:42] VITALS: BP 142/80; PULSE 64; TEMP 98
== END 2020-11-10 18:44 | disposition home or self-care (01) ==
LOC: JER 12:41
DX: R07.9 Chest pain, unspecified (principal)
CPT/HCPCS: 36415; 71046-TC-FY; 80053; 82550; 82553; 84484; 85025; 93005; 93010; 99285-25

== ENCOUNTER 2024-02-21 20:10 | Emergency (ER) | payer MEDICARE, OTHER ==
[2024-02-21 20:19] VITALS: BP 148/84; PULSE 70; RESP 18; TEMP 98.1; BMI 24.7
[2024-02-21] MEDS: SODIUM CHLORIDE 0.9% 500 ML INFUS.BAG IV ONE (22:26)
[2024-02-21 22:27] LABS: BASO % 0.5 % (0-2.0); EOS % 4.4 % (0-4.5); HEMATOCRIT 42.7 % (35.4-49); HEMOGLOBIN 14.3 GM/dL (11.7-16.9); LYMPH % 23.6 % (8-40); MCH 30.8 pg (25.7-33.7); MCHC 33.5 g/dl (32.0-35.9); MEAN PLT VOLUME 7.7 fl (7.5-11.1); MONO % 13.5 % (3.8-10.2); PLATELET COUNT 200 10^3/uL (134-434); RBC 4.65 M/mm3 (4.00-5.60); RDW 16.2 % (11.9-15.9); WHITE BLOOD COUNT 3.4 K/mm3 (4.0-10.0)
[2024-02-21 22:29] LABS: EPI CELLS 9 /uL (0-25.1); HYALINE CASTS 0 /uL (0-3.1); PH,URINE 5.5 (5.0-8.0); URINE APPEARANCE Error; URINE BACTERIA 40 /uL (0-1359); URINE BILIRUBIN NEGATIVE (NEGATIVE); URINE COLOR YELLOW; URINE GLUCOSE (UA) NEGATIVE (NEGATIVE); URINE KETONE NEGATIVE (NEGATIVE); URINE LEUK ESTERASE 1+ (NEGATIVE); URINE NITRITE NEGATIVE (NEGATIVE); URINE PROTEIN NEGATIVE (NEGATIVE); URINE RBC 14 /uL (0-23.9); URINE UROBILINOGEN 0.2 mg/dL (0.2-1.0); URINE WBC 9 /uL (0-25.8)
[2024-02-21 22:45] LABS: POTASSIUM 4.4 mmol/L (3.5-5.1)
[2024-02-21 22:47] LABS: ALBUMIN 3.9 g/dl (3.4-5.0); BLOOD UREA NITROGEN 19.4 mg/dL (7-18); CALCIUM 8.6 mg/dL (8.5-10.1)
[2024-02-21 22:52] LABS: BILIRUBIN,TOTAL 0.8 mg/dL (0.2-1); TOT PROT 7.3 g/dl (6.4-8.2)
== END 2024-02-21 23:50 | disposition home or self-care (01) ==
LOC: JER 20:10
DX: K52.9 Noninfective gastroenteritis and colitis, unspecified (principal); R11.2 Nausea with vomiting, unspecified
CPT/HCPCS: 36415; 80053; 81003; 83690; 85025; 87086; 99284-25

== ENCOUNTER 2024-05-26 12:24 | Emergency (ER) | payer MEDICARE, OTHER ==
[2024-05-26 12:34] VITALS: BP 125/67; PULSE 78; RESP 16; TEMP 99.3; BMI 24.7
[2024-05-26] MEDS ORDERED: ACETAMINOPHEN 500 MG TABLET (FP) ONE (13:32)
[2024-05-26] MEDS: ACETAMINOPHEN 325 MG TABLET (FP) PO ONE (13:34)
[2024-05-26] MEDS: BENZONATATE 200 MG CAPSULE PO ONE (14:07)
== END 2024-05-26 14:27 | disposition home or self-care (01) ==
LOC: JERFT 12:24
DX: R05.9 Cough, unspecified (principal); U07.1 COVID-19; R68.83 Chills (without fever)
CPT/HCPCS: 0241U-QW; 71046-TC-FY; 99284-25

== ENCOUNTER 2024-07-20 04:04 | Day surgery (SDC) | payer MEDICARE ==
[2024-07-19 12:52] VITALS: BMI 24.1
[2024-07-20] MEDS ORDERED: BUPIVACAINE HCL/PF 0.5% (5MG/ML) 10 ML VIAL ONE (07:55)
[2024-07-20] MEDS ORDERED: MINERAL OIL/PETROLATUM,WHITE 3.5 GM TUBE ONE (09:09)
[2024-07-20] MEDS ORDERED: PROPOFOL 40 ML ONE (09:09)
[2024-07-20] MEDS ORDERED: SUCCINYLCHOLINE CHLORIDE 200 MG/10 ML SYRINGE ONE (09:09)
[2024-07-20] MEDS ORDERED: ROCURONIUM BROMIDE 50 MG/5 ML SYRINGE ONE (09:10)
[2024-07-20] MEDS ORDERED: PROPOFOL 20 ML ONE (09:10)
[2024-07-20] MEDS ORDERED: ceFAZolin SODIUM 1 GM VIAL ONE (09:36)
[2024-07-20] MEDS: ceFAZolin 2 GRAM PREMIX BAG IVPB ONE (09:45)
[2024-07-20] MEDS ORDERED: SUGAMMADEX SODIUM 200 MG/2 ML VIAL ONE (11:24)
[2024-07-20] MEDS: BUPIVACAINE HCL/PF 0.5% (5 MG/ML) 30 ML VIAL IJ ONE ×2 (11:29)
[2024-07-20] MEDS ORDERED: LACTATED RINGERS SOLUTION 1,000 ML IV SCH (11:45)
[2024-07-20 12:53] VITALS: RESP 16
[2024-07-20 13:01] VITALS: TEMP 97.7
[2024-07-20 14:30] VITALS: BP 130/60; PULSE 62
== END 2024-07-20 15:30 | disposition home or self-care (01) ==
LOC: JASU-SURG 04:04
PROVIDERS: ATTEND Surgery
PROC: 8E0W4CZ Robotic Assisted Procedure of Trunk Region, Percutaneous Endoscopic Approach (ICD-10-PCS; 2024-07-20)
PROC: 0YU54JZ Supplement Right Inguinal Region with Synthetic Substitute, Percutaneous Endoscopic Approach (ICD-10-PCS; principal; 2024-07-20 09:00)
DX: K40.90 Unilateral inguinal hernia, without obstruction or gangrene, not specified as recurrent (principal)
CPT/HCPCS: 49650; S2900; 94760; C1781

== ENCOUNTER 2024-10-17 13:12 | Emergency (ER) | payer OTHER ==
[2024-10-17 13:20] VITALS: BP 131/76; PULSE 58; RESP 18; TEMP 98.2; BMI 24.9
== END 2024-10-17 14:28 | disposition home or self-care (01) ==
LOC: JER 13:12
DX: F41.9 Anxiety disorder, unspecified (principal)
CPT/HCPCS: 93005; 93010; 99283-25

== ENCOUNTER 2024-11-09 00:15 | Emergency (ER) | payer OTHER ==
[2024-11-09 00:29] VITALS: BP 119/75; PULSE 64; RESP 20; TEMP 97.7; BMI 23.3
== END 2024-11-09 03:06 | disposition home or self-care (01) ==
LOC: JER 00:15
DX: R05.9 Cough, unspecified (principal); J06.9 Acute upper respiratory infection, unspecified; Z20.822 Contact with and (suspected) exposure to COVID-19
CPT/HCPCS: 0241U-QW; 71046-TC-FY; 93005; 93010; 99285-25